=== PATIENT | female | born 1955 | race Caucasian/White ===

== ENCOUNTER 2016-10-04 23:52 | Emergency (ER) | payer BC ==
[~2016-10-04] VITALS: Ht 160 cm; Wt 95.0 kg
[~2016-10-04 23:52] MED LIST: AVN4; CLOP1TAB15 PO; FLNIN; FOSAMAX; HYZ/50125; INSDGI; LSX20; NVLGI; PRLSR20; SIMV40TA2
[2016-10-04 23:57] VITALS: Ht 160 cm; Wt 95.0 kg
[2016-10-05] MEDS ORDERED: FLUT0.15 NAE (00:18)
[2016-10-05] MEDS ORDERED: FURO-85 PO (00:19)
[2016-10-05] MEDS ORDERED: HYZ/50125 PO (00:20)
[2016-10-05] MEDS ORDERED: EZET10TA63 PO (00:22)
[2016-10-05] MEDS ORDERED: ATOR-26 PO (00:22)
[2016-10-05] MEDS ORDERED: ASPI81TA28 PO (00:23)
[2016-10-05] MEDS ORDERED: PRLSR20 PO (00:24)
[2016-10-05] MEDS ORDERED: MULT-506 PO (00:25)
[2016-10-05] MEDS ORDERED: CHOL1000 PO (00:26)
[2016-10-05] MEDS ORDERED: CINN1CAP2 PO (00:27)
[2016-10-05] MEDS ORDERED: B-COTAB18 PO (00:28)
[2016-10-05] MEDS ORDERED: INSPMPHMLG (00:29)
[2016-10-05] MEDS ORDERED: LIDOCAINE/EPINEPH/TETRACAINE 1 EA SYR EXT STA (01:40)
[2016-10-05] MEDS ORDERED: LIDO/EPINEPHRINE/SOD BICARB 20 ML VIAL INFIL ONE (03:19)
[2016-10-05] MEDS ORDERED: LIDOCAINE/EPINEPHRINE 1% 20 ML VIAL INFIL ONE (03:30)
[2016-10-05] MEDS ORDERED: MUPIROCIN 2% OINT 22 GM TUBE EXT STA (03:40)
[2016-10-05] MEDS ORDERED: AMOXICIL/CLAVU 875MG HOME PACK PO ONE (03:45)
[2016-10-05 03:55] VITALS: BP 170/82; PULSE 85; O2SAT 94
[2016-10-05] MEDS ORDERED: AMOX875T PO (03:55)
--- NOTE | 2016-10-05 04:24 | EMERGENCY ROOM VISIT NOTE ---
History First contact with patient: 01:07 Chief Complaint: BITE Stated Complaint: DOG BITE - SIGNIFICANT BLEEDING,WON'T STOP History of Present Illness The patient is a 61 year old female who presents to the Emergency Room with complaints of being bit by a dog just prior to arrival. Patient states her dog bit her on accident. Shots are up-to-date. No chance for rabies. Her tetanus is current. Patient complains of a upper lip laceration. Patient denies dental pain, facial pain, headache, neck pain or any other medical complaints. Review of Systems See HPI for pertinent positives & negatives. A total of 6 systems reviewed and were otherwise negative. Past Medical/Surgical History Diabetes Social History Smoking Status: Never Smoker Drug Use: none Current/Historical Medications Scheduled Amoxicillin & Pot Clavulanate (Augmentin 875-125 mg), 1 TAB PO BID Aspirin (Aspirin Ec), 81 MG PO DAILY Atorvastatin (Lipitor), 80 MG PO DAILY B-Complex Vitamins (Vitamin B Complex), 1 TAB PO DAILY Cholecalciferol (Vitamin D3), 5,000 UNITS PO DAILY Cinnamon (Cinnamon), 500 MG PO DAILY Clopidogrel (Plavix), 75 MG PO DAILY Ezetimibe (Zetia), 10 MG PO DAILY Hctz/Losartan (Hyzaar 12.5MG/50MG), 1 TAB PO DAILY Insulin Human Lispro (Insulin Humalog Pump ), 1 EA N/A UD Multivitamin (Multivitamin), 1 TAB PO DAILY Omeprazole (Prilosec), 20 MG PO DAILY Scheduled PRN Fluticasone Propionate (Nasal) (Flonase Allergy Relief), 2 SPRAYS MARNIE DAILY PRN for ALLERGIC REACTION Furosemide (Lasix), 20 MG PO DAILY PRN for EDEMA/WEIGHT GAIN Allergies Coded Allergies: Lisinopril (Unverified Allergy, Mild, 10/20/09) Physical Exam Vital Signs Date Time Temp Pulse Resp B/P Pulse Ox O2 Delivery O2 Flow Rate FiO2 10/05/16 03:55 85 18 170/82 94 Room Air 10/05/16 01:55 84 18 163/93 97 Room Air 10/04/16 23:57 92 18 163/91 97 Room Air Physical Exam VITALS: Vitals are noted on the nurse's note and reviewed by myself. Vital signs stable. GENERAL: Pleasant female, in no acute distress, nondiaphoretic, well-developed well-nourished. SKIN: The skin was without rashes, erythema, edema, or bruising. There is no tenting of the skin. Capillary reflex less than 2 seconds. HEAD: Normocephalic atraumatic. Face nontender to palpation EARS: External auditory canals clear, tympanic membranes pearly mayer without erythema or effusion bilaterally. EYES: Pupils equal round and reactive to light and accommodation. Conjunctivae without injection, sclerae without icterus. Extraocular movements intact. NOSE: Patent, turbinates without inflammation or discharge. No sinus tenderness. MOUTH: Mucous membranes moist. Pharynx without erythema or exudate. Uvula midline. Airway patent. Tongue does not deviate. Right upper lip with skin avulsion through the vermilion border with active bleeding. Dental exam: No loose or chipped teeth. NECK: Supple without nuchal rigidity. No lymphadenopathy. No thyromegaly. Cervical spine is nontender. No JVD. HEART: Regular rate and rhythm without murmurs gallops or rubs. LUNGS: Clear to auscultation bilaterally without wheezes, rales or rhonchi. No dullness to percussion. No retractions or accessory muscle use. MUSCULOSKELETAL: No muscle atrophy, erythema, or edema noted. NEURO: Patient was alert and oriented to person place and time. Normal sensation to light and sharp touch. No focal neurological deficits. Medical Decision & Procedures Medications Administered Medications (Trade) Dose Ordered Sig/Anshul Route Start Time Stop Time Status Last Admin Dose Admin Tetracaine/ Epinephrine/ Lidocaine (L.e.t. Gel 4%/ 1:100/0.5%) 1 ea NOW STAT EXT 10/05/16 01:40 10/05/16 01:41 DC 10/05/16 01:56 1 EA Amoxicillin/ Clavulanate Potassium (Augmentin 875MG Home Pack) 1 homepack UD ONCE PO 10/05/16 03:45 10/05/16 03:46 DC 10/05/16 04:10 1 HOMEPACK Mupirocin (Bactroban 2% Oint) 1 appln NOW STAT EXT 10/05/16 03:40 10/05/16 03:42 DC 10/05/16 04:08 1 APPLN ED Course Prior records/ancillary studies reviewed. Triage Nursing notes reviewed. The patient's history was concerning for facial injury after dog bite Differential diagnosis: Etiologies such as laceration, facial injury, dental injury, concussion, contusion, fracture, subdural hematoma, epidural hematoma, intraparenchymal hemorrhage, as well as other traumatic pathologies were entertained. Physical examination findings: As above. ER treatment provided: Augmentin, Bactroban On reassessment the patient felt better. Diagnostics interpreted by me: Consultation: A consultation was placed with the oral surgeon, Dr. Sanders as patient requested plastics. The case was discussed and diagnostics were reviewed. The patient was evaluated in the ER for further treatment. He recommends antibiotics and secondary healing intention. He will see the patient in follow- up for revision of the wound. It appears the patient has a lip laceration after being bit by a dog. Patient was evaluated by plastics and will follow-up with him for further evaluation and treatment. Patient was advised to take antibiotics as directed. She is advised to return to the immediate for fevers, swelling, drainage, worsening signs or symptoms or as needed.. By the evaluation outlined above emergent etiologies such as fracture, subdural hematoma, epidural hematoma, intraparenchymal hemorrhage, as well as others were deemed relatively unlikely. The pt informed about the findings as listed above. All questions were answered and pleased with the treatment. Return instructions were outlined and the patient was discharged in stable condition. Outpatient Prescription Management: augmetin Referral: The patient was referred back to plastic surgery for follow-up in 2 to 3 days for a recheck of the current condition. Medical Decision As below Impression Primary Impression: Open lip wound Additional Impression: Dog bite Departure Information Dispostion Home / Self-Care Condition GOOD Prescriptions Amoxicillin & Pot Clavulanate (Augmentin 875-125 mg) 1 Tab Tab 1 TAB PO BID for 9 Days, #18 TAB Prov: Yessica Perez .WALLACE 10/05/16 Referrals Kj Maciel M.D. Forms HOME CARE DOCUMENTATION FORM, IMPORTANT VISIT INFORMATION Patient Instructions [facility], ED Bite Dog Additional Instructions Bactroban ointment: Apply twice a day to the affected area. Amoxicillin Clavulanate (Augmentin) 875mg: Take one pill twice daily for 10 days for your infection. All antibiotics can cause diarrhea. If this occurs and you feel worse or it does not resolve in 1-2 days follow up with your doctor or return to the Emergency Department as this could be signs of serious underlying problems. Any medication can cause an allergic reaction, stop the pills immediately and return to the ER for rash, hives, breathing difficulties, or swelling. Acetaminophen(Tylenol) may be used for fever or pain. Use 1000mg every six hours as needed. Avoid using more than 3000mg in a 24 hour period. Rest and drink plenty of fluids. Continue current medications. Return to the ER for severe pain, persistent fevers, spreading redness, or any worsening of your condition. Follow up with plastic surgery within 2-3 days or as scheduled for a recheck of the current condition. Problem Qualifiers Primary Impression: Open lip wound Encounter type: initial encounter Open wound type: puncture wound Foreign body presence: without foreign body Qualified Codes: S01.531A - Puncture wound without foreign body of lip, initial encounter Additional Impression: Dog bite Encounter type: initial encounter Qualified Codes: W54.0XXA - Bitten by dog , initial encounter
--- NOTE | 2016-10-05 14:52 | HISTORY & PHYSICAL EXAMINATION ---
DATE OF ADMISSION: 10/04/2016 HISTORY OF PRESENT ILLNESS: The patient is a 50-year-old white female who was bit in the upper lip by her dog and sustained a large avulsion of the skin vermilion and part of the anterior orbicularis capsule for greater than 1/3 of the transverse length of the lip. PAST MEDICAL HISTORY: Otherwise noncontributory other than the fact that the patient is BRCA gene positive and this coming Friday is to undergo bilateral mastectomies and immediate reconstruction at [place], [place]. My evaluation of the lip shows a large avulsive segment. The lip cannot be wedge resected without significant distortion and creating perhaps a temporary microstomia which would interfere with intubation for her surgery on Friday. A skin graft could possibly be disrupted during intubation and delay her procedure. A switch flap, which would be the best treatment for this would also likewise create a temporary microstomia that may delay her surgery and she absolutely does not want to delay the surgery. The animation of the lip seems okay. The muscle function is for the most part intact. The wound is clean and it is open so we have elected to not close it and allow it to heal at least to some degree secondarily and do a delayed closure on it several weeks from now after she is past her breast surgery. I discussed with her on how to maintain this wound. We will have her apply mupirocin b.i.d., take Augmentin for 1 week and then to wash it normally but do not over manipulate it with peroxide or scrubbing. She is to call me for any problems. She is going to call her plastic surgeon on Friday and make sure that an open wound would not cause him to delay her surgery. I do not think that it should, but if he feels that I would I can put a full thickness skin graft on there as the simplest most convenient closure. Should it be disrupted at the time of her surgery it will matter little as our plan is to perform a cross lip flap as the more definitive closure. I explained this to the patient and she understands. She is a nonsmoker. She is on Plavix and has had a TIA in the past but these are not contraindications to a switch flap which can be performed under local. I will see her back next week. If her plastic surgeon wishes it closed we will perform a graft closure on Friday. If he does not mind that it is open either he or I will perform the appropriate closure down the road or at the time of her breast surgery.
== END 2016-10-05 04:15 | disposition home or self-care (01) ==
LOC: C.EDB 23:54 → C.EDA 10-05 04:15
DX: S01.511A Laceration without foreign body of lip, initial encounter (principal); W54.0XXA Bitten by dog, initial encounter; E11.9 Type 2 diabetes mellitus without complications; Z79.82 Long term (current) use of aspirin; Z79.4 Long term (current) use of insulin; Z79.899 Other long term (current) drug therapy; Z88.8 Allergy status to other drugs, medicaments and biological substances

== ENCOUNTER 2016-11-04 16:30 | Emergency (ER) | payer BC ==
[~2016-11-04] VITALS: Ht 160 cm; Wt 94.0 kg
[~2016-11-04 16:30] MED LIST changes: +ASPI81TA28 PO; +ATOR-26 PO; -AVN4; +B-COTAB18 PO; +CHOL1000 PO; +CINN1CAP2 PO; +EZET10TA63 PO; -FLNIN; +FLUT0.15 NAE; -FOSAMAX; +FURO-85 PO; -HYZ/50125; +HYZ/50125 PO; -INSDGI; +INSPMPHMLG; -LSX20; +MULT-506 PO; -NVLGI; -PRLSR20; +PRLSR20 PO; -SIMV40TA2
[2016-11-04 16:36] VITALS: TEMP 36.5; Ht 160 cm; Wt 94.0 kg
[2016-11-04] MEDS ORDERED: DIAZ-165 PO (17:06)
[2016-11-04] MEDS ORDERED: OXYC-609 PO (17:06)
[2016-11-04 17:21] LABS: BASO % 0.3 %; BASO ABS # 0.02 K/uL (0-0.2); COMPLETE YES; EOS % 3.4 %; HEMATOCRIT 30.1 % (37-47); IG% 0.2 %; LYMPH % 20.6 %; LYMPH ABS # 1.28 K/uL (1.2-3.4); MEAN CELL VOLUME 89.6 fL (80-100); MEAN CORPUSCULAR HEMOGLOBIN 31.5 pg (25-34); MEAN CORPUSCULAR HGB CONC 35.2 g/dl (32-36); MEAN PLATELET VOLUME 9.9 fL (7.4-10.4); MONO % 9.4 %; NEUT % 66.1 %; PLATELET COUNT 255 K/uL (130-400); RED BLOOD COUNT 3.36 M/uL (4.2-5.4)
[2016-11-04] MEDS ORDERED: ONDANSETRON INJ 2 MG/ML 2 ML VIAL IV STA (17:33)
[2016-11-04] MEDS ORDERED: MoRPHine SULFATE 10 MG/ML CARP/VIAL IV STA (17:33)
--- NOTE | 2016-11-04 17:35 | DIAGNOSTIC IMAGING REPORT ---
CHEST ONE VIEW PORTABLE CLINICAL HISTORY: swelling of right breast pain COMPARISON STUDY: No previous studies for comparison. FINDINGS: Increased density right hemithorax most likely secondary to overlapping shadows in the right breast. Lungs are considered clear. Diaphragms smooth. IMPRESSION: Increased density/size right breast. The chest itself is negative Electronically signed by: Rogelio Bowling M.D. 11/04/2016 5:33 PM Dictated Date/Time: 11/04/2016 5:33 PM
[2016-11-04 17:39] LABS: BUN/CREATININE RATIO 21.1 (10-20); CALCIUM 8.6 mg/dl (8.5-10.1); CREATININE 0.73 mg/dl (0.60-1.20); POTASSIUM 3.8 mmol/L (3.5-5.1)
--- NOTE | 2016-11-04 18:31 | DIAGNOSTIC IMAGING REPORT ---
Study. Right breast ultrasound HISTORY: Post mastectomy/reconstruction pain. Edema. FINDINGS: Right breast implant is present. Bile central criteria the implant appears intact. There is also a left breast implant. Posterior to the right breast implant is a 6 x 3 cm slightly complex soft tissue component which is not seen on the contralateral left. This potentially relates to hematoma, abscess, versus complex seroma. IMPRESSION: 1. Bilateral breast implants. 2. Moderate complex tissue posterior to the right breast implant measuring 3 x 6 cm. 3. Diagnostic considerations include hematoma, complex trauma, versus abscess. Electronically signed by: Rogelio Bowling M.D. 11/04/2016 6:29 PM Dictated Date/Time: 11/04/2016 6:25 PM
[2016-11-04 19:30] VITALS: BP 140/74; PULSE 77; O2SAT 95
--- NOTE | 2016-11-04 22:30 | EMERGENCY ROOM VISIT NOTE ---
History Report prepared by Tae: La Evans Under the Supervision of: Dr. Cristian Miner D.O. First contact with patient: 16:46 Chief Complaint: OTHER COMPLAINT Stated Complaint: S/P HEATHER MASTECTOMY 10/11, SWELLING/PAIN RT SIDE History of Present Illness The patient is a 61 year old female who presents to the Emergency Room with complaints of severe right sided breast pain and swelling starting yesterday. She denies any swelling in her upper extremities. She had a bilateral mastectomy on October 11 and implants placed. Patient denies any fevers or redness of her breast. She notes that this started suddenly about 2-3 hours prior to presentation. She did discuss this with her breast surgeon who recommended that she be evaluated in the ER. She has a history of left sided breast cancer and consequently had a bilateral mastectomy. Pt denies headache, change in vision, fevers, shortness of breath, nausea, vomiting, diarrhea, pain with urination, and melena. Source of History: patient Onset: yesterday Position: other (right sided breast) Symptom Intensity: severe Quality: other (swelling) Associated Symptoms: No SOB, No diarrhea, No fevers, No headache, No nausea , No vomiting Review of Systems See HPI for pertinent positives & negatives. A total of 10 systems reviewed and were otherwise negative. Past Medical & Surgical Medical Problems: (1) Breast cancer (2) Diabetes (3) Hypertension (4) Kidney stone Surgical Problems: (1) H/O bilateral mastectomy Family History Diabetes mellitus FH: cancer FH: heart disease FH: lung disease Social History Smoking Status: Never Smoker Alcohol Use: none Drug Use: none Occupation Status: employed Current/Historical Medications Scheduled Aspirin (Aspirin Ec), 81 MG PO DAILY Atorvastatin (Lipitor), 80 MG PO DAILY B-Complex Vitamins (Vitamin B Complex), 1 TAB PO DAILY Cholecalciferol (Vitamin D3), 5,000 UNITS PO DAILY Cinnamon (Cinnamon), 500 MG PO DAILY Clopidogrel (Plavix), 75 MG PO DAILY Ezetimibe (Zetia), 10 MG PO DAILY Hctz/Losartan (Hyzaar 12.5MG/50MG), 1 TAB PO DAILY Insulin Human Lispro (Insulin Humalog Pump ), 1 EA N/A UD Multivitamin (Multivitamin), 1 TAB PO DAILY Omeprazole (Prilosec), 20 MG PO DAILY Scheduled PRN Diazepam (Valium), 5 MG PO Q8 PRN for PRN Fluticasone Propionate (Nasal) (Flonase Allergy Relief), 2 SPRAYS MARNIE DAILY PRN for ALLERGIC REACTION Furosemide (Lasix), 20 MG PO DAILY PRN for EDEMA/WEIGHT GAIN Oxycodone HCl (Oxycodone HCl), 5 MG PO Q6 PRN for Pain Allergies Coded Allergies: Lisinopril (Unverified Allergy, Mild, 11/04/16) Physical Exam Vital Signs Date Time Temp Pulse Resp B/P Pulse Ox O2 Delivery O2 Flow Rate FiO2 11/04/16 19:30 77 20 140/74 95 11/04/16 18:19 87 18 143/58 99 Room Air 11/04/16 16:36 36.5 94 18 152/77 100 Room Air Physical Exam GENERAL: Sitting up in bed, nontoxic, no acute distress, non-toxic EYE EXAM: normal conjunctiva, PERRL and EOM's grossly intact OROPHARYNX: no exudate, no erythema, lips, buccal mucosa, and tongue normal and mucous membranes are moist NECK: supple, no nuchal rigidity, no adenopathy, non-tender CHEST: Left breast with incision which is clean, dry, and intact, no erythema. Right breast with moderate amount of swelling, no erythema, incision is intact with minimal amount of dark tissue present less than 1-2cm in length, minimal tenderness on palpation. LUNGS: Clear to auscultation. Normal chest wall mechanics HEART: no murmurs, S1 normal and S2 normal ABDOMEN: abdomen soft, non-tender, normo-active bowel sounds, no masses, no rebound or guarding. BACK: Back is symmetrical on inspection and there is no deformity, no midline tenderness, no CVA tenderness. SKIN: no rashes and no bruising UPPER EXTREMITIES: upper extremities are grossly normal and equal in size bilaterally. Radial pulses are equal bilaterally. LOWER EXTREMITIES: No pitting edema. NEURO EXAM: Normal sensorium, cranial nerves II-XII grossly intact, normal speech, no gross weakness of arms, no gross weakness of legs. Medical Decision & Procedures ER Provider Diagnostic Interpretation: Xray results per the radiologist and my interpretation. US results have been interpreted by the radiologist and reviewed by me. CHEST ONE VIEW PORTABLE CLINICAL HISTORY: swelling of right breast pain COMPARISON STUDY: No previous studies for comparison. FINDINGS: Increased density right hemithorax most likely secondary to overlapping shadows in the right breast. Lungs are considered clear. Diaphragms smooth. IMPRESSION: Increased density/size right breast. The chest itself is negative Electronically signed by: Rogelio Bowling M.D. 11/04/2016 5:33 PM Dictated Date/Time: 11/04/2016 5:33 PM Study. Right breast ultrasound HISTORY: Post mastectomy/reconstruction pain. Edema. FINDINGS: Right breast implant is present. Bile central criteria the implant appears intact. There is also a left breast implant. Posterior to the right breast implant is a 6 x 3 cm slightly complex soft tissue component which is not seen on the contralateral left. This potentially relates to hematoma, abscess, versus complex seroma. IMPRESSION: 1. Bilateral breast implants. 2. Moderate complex tissue posterior to the right breast implant measuring 3 x 6 cm. 3. Diagnostic considerations include hematoma, complex trauma, versus abscess. Electronically signed by: Rogelio Bowling M.D. 11/04/2016 6:29 PM Dictated Date/Time: 11/04/2016 6:25 PM Laboratory Results 11/04/16 17:08 Red Blood Count 3.36, Mean Corpuscular Volume 89.6, Mean Corpuscular Hemoglobin 31.5, Mean Corpuscular Hemoglobin Concent 35.2, Mean Platelet Volume 9.9, Neutrophils (%) (Auto) 66.1, Lymphocytes (%) (Auto) 20.6, Monocytes (%) (Auto) 9.4, Eosinophils (%) (Auto) 3.4, Basophils (%) (Auto) 0.3, Neutrophils # (Auto) 4.10, Lymphocytes # (Auto) 1.28, Monocytes # (Auto) 0.58, Eosinophils # (Auto) 0.21, Basophils # (Auto) 0.02 11/04/16 17:08 Test 11/04/16 17:08 White Blood Count 6.20 K/uL (4.8-10.8) Red Blood Count 3.36 M/uL (4.2-5.4) Hemoglobin 10.6 g/dL (12.0-16.0) Hematocrit 30.1 % (37-47) Mean Corpuscular Volume 89.6 fL (80-100) Mean Corpuscular Hemoglobin 31.5 pg (25-34) Mean Corpuscular Hemoglobin Concent 35.2 g/dl (32-36) Platelet Count 255 K/uL (130-400) Mean Platelet Volume 9.9 fL (7.4-10.4) Neutrophils (%) (Auto) 66.1 % Lymphocytes (%) (Auto) 20.6 % Monocytes (%) (Auto) 9.4 % Eosinophils (%) (Auto) 3.4 % Basophils (%) (Auto) 0.3 % Neutrophils # (Auto) 4.10 K/uL (1.4-6.5) Lymphocytes # (Auto) 1.28 K/uL (1.2-3.4) Monocytes # (Auto) 0.58 K/uL (0.11-0.59) Eosinophils # (Auto) 0.21 K/uL (0-0.5) Basophils # (Auto) 0.02 K/uL (0-0.2) RDW Standard Deviation 41.5 fL (36.4-46.3) RDW Coefficient of Variation 12.9 % (11.5-14.5) Immature Granulocyte % (Auto) 0.2 % Immature Granulocyte # (Auto) 0.01 K/uL (0.00-0.02) Anion Gap 12.0 mmol/L (3-11) Est Creatinine Clear Calc Drug Dose 86.0 ml/min Estimated GFR () 101.6 Estimated GFR (Non- 87.7 BUN/Creatinine Ratio 21.1 (10-20) Calcium Level 8.6 mg/dl (8.5-10.1) Laboratory results per my review. Medications Administered Medications (Trade) Dose Ordered Sig/Anshul Route Start Time Stop Time Status Last Admin Dose Admin Morphine Sulfate (MoRPHine SULFATE INJ) 6 mg NOW STAT IV 11/04/16 17:33 11/04/16 17:34 DC 11/04/16 18:18 6 MG Ondansetron HCl (Zofran Inj) 4 mg NOW STAT IV 11/04/16 17:33 11/04/16 17:34 DC 11/04/16 18:18 4 MG ED Course ED COURSE: Vital signs were reviewed and showed normal. The patients medical record was reviewed The above diagnostic studies were performed and reviewed. ED treatments and interventions as stated above. 1646: The patient was evaluated in room C12A. A complete history and physical examination was performed. 1733: Zofran Inj 4 mg IV, Morphine Sulfate 6 mg IV 1899: I updated the patient. 1906: I discussed the patient's case with Dr. Barraza, plastic surgeon with [facility]. He recommended outpatient follow up. 1922: Upon reevaluation, the patient is resting comfortably. I discussed my findings with the patient and she understands and agrees with the treatment plan. Based on the patients age, coexisting illnesses, exam and lab findings the decision to treat as an outpatient was made. The patient remained stable while under my care. The patient appeared well at the time of discharge. Medical Decision Differential diagnosis includes but is not limited to hematoma, mastitis, cellulitis, abscess, ruptured implant. Patient is a seizure 61-year-old female who presents the ER for swelling of her right breast. She had a complete bilateral resection of both breasts at the end of September for breast cancer. She notes that several hours prior to arrival she had significant amount of swelling of her right breast. She notes that it is mildly painful. No redness or fevers. This happened acutely. Resection was done at the end of September. Labs were obtained. No significant leukocytosis or anemia. BMP was unremarkable. Ultrasound shows complex fluid behind the implants. Discussed case with her plastic surgeon. They agree with having this patient follow up as an outpatient tomorrow in their office for further workup. Discussed with Pt concerning signs and symptoms to watch out for. Pt was instructed to follow up with their PCP and discussed with the patient their option to return to the ED at anytime for persistent or worsening symptoms. The appropriate anticipatory guidance and out-patient management, including indications for return to the emergency department, were explained at length to the patient and understood. Consults Time Called: 1899 Consulting Physician: Dr. Barraza, plastic surgeon with [facility] Returned Call: 1906 I discussed the patient's case with Dr. Barraza, plastic surgeon with [facility]. He recommended outpatient follow up. Impression Primary Impression: Breast pain Additional Impression: Anemia Scribe Attestation The scribe's documentation has been prepared under my direction and personally reviewed by me in its entirety. I confirm that the note above accurately reflects all work, treatment, procedures, and medical decision making performed by me. Departure Information Dispostion Home / Self-Care Referrals Ladi Benites MD (PCP) Forms HOME CARE DOCUMENTATION FORM, IMPORTANT VISIT INFORMATION, WORK / SCHOOL INSTRUCTIONS Patient Instructions [facility] Additional Instructions Please follow up with your plastic surgeon with in the next 24 hours. Any worsening of your symptoms, please return to the ED immediately. This includes any fevers greater than 100.4, shaking chills, worsening pain, redness around her breast, trouble breathing, chest pain or any other concerning signs or symptoms from your standpoint. Please continue your OxyIR as previously prescribed. Problem Qualifiers Additional Impression: Anemia Anemia type: unspecified type Qualified Codes: D64.9 - Anemia, unspecified
== END 2016-11-04 19:33 | disposition home or self-care (01) ==
LOC: C.EDB 16:32 → C.EDC 19:33
DX: N64.4 Mastodynia (principal); D64.9 Anemia, unspecified; Z85.3 Personal history of malignant neoplasm of breast; Z98.82 Breast implant status; E11.9 Type 2 diabetes mellitus without complications; I10 Essential (primary) hypertension; Z87.442 Personal history of urinary calculi; Z83.3 Family history of diabetes mellitus; Z80.9 Family history of malignant neoplasm, unspecified; Z82.49 Family history of ischemic heart disease and other diseases of the circulatory system; Z83.6 Family history of other diseases of the respiratory system; Z79.82 Long term (current) use of aspirin; Z79.02 Long term (current) use of antithrombotics/antiplatelets; Z79.899 Other long term (current) drug therapy

== ENCOUNTER 2016-11-25 12:01 | Inpatient (IN) | payer BC ==
[~2016-11-25] VITALS: Ht 160 cm; Wt 92.4 kg
[~2016-11-25 12:01] MED LIST changes: +DIAZ-165 PO; +OXYC-609 PO
[2016-11-25] MEDS ORDERED: HYDROmorphone INJ 0.5 MG/0.5 ML SYR IV STA ×2 (13:04→15:30)
[2016-11-25] MEDS ORDERED: SODIUM CHLORIDE 0.9% 1000ML 2,000 ML IV STA (13:04)
[2016-11-25] MEDS ORDERED: ONDANSETRON INJ 2 MG/ML 2 ML VIAL IV STA (13:04)
--- NOTE | 2016-11-25 14:06 | DIAGNOSTIC IMAGING REPORT ---
HEAD CT NONCONTRAST CT DOSE: 537.48 mGy.cm HISTORY: headache, breast cancer TECHNIQUE: Multiaxial CT images of the head were performed without the use of intravenous contrast. Automated exposure control was utilized for this study. Comparison: None. Findings: Small fluid levels within the bilateral maxillary sinuses and partial opacification of the ethmoid air cells. There is also small fluid level within the right sphenoid sinus. The calvarium and skull base are intact. The ventricles and sulci are within normal limits. There is no mass, hematoma, midline shift, or acute infarct. Impression: No acute intracranial abnormality. Acute paranasal sinusitis. Electronically signed by: Garrison Carter M.D. 11/25/2016 2:05 PM Dictated Date/Time: 11/25/2016 1:58 PM
[2016-11-25 14:20] LABS: BUN/CREATININE RATIO 18.7 (10-20); CALCIUM 8.2 mg/dl (8.5-10.1); CREATININE 0.63 mg/dl (0.60-1.20); POTASSIUM 3.3 mmol/L (3.5-5.1)
[2016-11-25 14:49] LABS: HEMATOCRIT 32.5 % (37-47); MEAN CORPUSCULAR HGB CONC 34.5 g/dl (32-36); MEAN PLATELET VOLUME 10.4 fL (7.4-10.4); PLATELET COUNT 208 K/uL (130-400); RED BLOOD COUNT 3.61 M/uL (4.2-5.4); WHITE BLOOD COUNT 1.48 K/uL (4.8-10.8)
[2016-11-25] MEDS ORDERED: AMOXICILLIN/CLAVULANATE TAB 875 MG TAB PO ONE (16:00)
[2016-11-25 16:38] LABS: LARGE PLATELETS 1+; TOXIC GRANULATION 1+
[2016-11-25 16:40] LABS: BASO ABS # 0.01 K/uL (0-0.2); BASOPHIL % 0.9 %; EOSINOPHIL % 0.9 %; LYMPH ABS # 0.71 K/uL (1.2-3.4); LYMPHOCYTE % 48.2 %; META ABS # 0.11 K/uL (0-0); METAMYELOCYTE % 7.3 %; NEUTROPHILS % 13.6 %
[2016-11-25 16:45] LABS: COMPLETE YES
[2016-11-25 16:58] LABS: URINE APPEARANCE CLEAR (CLEAR); URINE BILIRUBIN NEG (NEG); URINE COLOR YELLOW; URINE EPITHELIAL CELL AUTO >30 /lpf (0-5); URINE NITRITE NEG (NEG); URINE SPECIFIC GRAVITY 1.017 (1.000-1.030); UROBILINOGEN NEG (NEG); ZZUR CULT IF INDIC CLEAN CATCH NO
[2016-11-25 17:05] LABS: MANUAL MICROSCOPIC REQUIRED? NO; REVIEW REQ? NO
[2016-11-25] MEDS ORDERED: FLUTICASONE PROPIONATE NA SPR 16 GM BTL NAE PRN (19:00)
[2016-11-25] MEDS ORDERED: ZOLPIDEM TARTRATE 5 MG TAB PO PRN (19:00)
[2016-11-25] MEDS ORDERED: GLUCOSE 10 TABS/TUBE PO PRN (19:15)
[2016-11-25] MEDS ORDERED: GLUCOSE 40% GEL 15 GM TUBE PO PRN (19:15)
[2016-11-25] MEDS ORDERED: ONDANSETRON INJ 2 MG/ML 2 ML VIAL IV PRN (19:15)
[2016-11-25] MEDS ORDERED: DEXTROSE 50% 50 ML SYR IV PRN (19:15)
[2016-11-25] MEDS ORDERED: GLUCAGON FOR INJ 1 MG VIAL SQ PRN (19:15)
[2016-11-25] MEDS ORDERED: PIPERACILL/TAZOBAC IV 3.375 GM in DEXTROSE 5% 100ML IV ONE (19:30)
[2016-11-25] MEDS ORDERED: VANCOMYCIN INJ 2,300 MG in SODIUM CHLORIDE 0.9% 500ML 500 ML IV ONE (19:30)
[2016-11-25 20:38] VITALS: BP 129/72; PULSE 99; TEMP 36.9; O2SAT 96
[2016-11-25] MEDS ORDERED: PIPERACILL/TAZOBAC CONSULT ACTIVE PRN (20:45)
[2016-11-25] MEDS ORDERED: VANCOMYCIN CONSULT ACTIVE PRN (20:45)
[2016-11-25 20:48] VITALS: BMI 35.8
--- NOTE | 2016-11-25 20:50 | Pharmacy Progress Note ---
Pharmacy Antibiotic Consult Date of Service: Nov 25, 2016. Pharmacy Dosing Scope Pharmacy is consulted to initiate vancomycin/zosyn IV dosing therapy, order appropriate labs and adjust drug dose/frequency. Subjective The patient is a 61 year old female admitted on Nov 25, 2016 at 19:09 with sinusitis and neutropenia. Objective Height (Feet): 5 Height (Inches): 3.00 Weight (Kilograms): 91.600 Lab Results (24hrs): Laboratory Tests Test 11/25/16 13:37 BUN/Creatinine Ratio 18.7 Blood Urea Nitrogen 12 mg/dl Creatinine 0.63 mg/dl White Blood Count 1.48 K/uL Red Blood Count 3.61 M/uL Hemoglobin 11.2 g/dL Hematocrit 32.5 % Mean Corpuscular Volume 90.0 fL Mean Corpuscular Hemoglobin 31.0 pg Mean Corpuscular Hemoglobin Concent 34.5 g/dl Platelet Count 208 K/uL Mean Platelet Volume 10.4 fL Assessment & Plan Loading dose: vancomycin 2300 mg (25 mg/kg) IV X 1 dose then: vancomycin 1350 mg IV every 10 hours (15 mg/kg; population pharmacokinetics suggest a half-life of 8.06 hr with an elimination constant of 0.086 hr-1). Goal peak level estimate: between 35 - 40 mcg/mL. Goal trough level estimate: between 10 - 15 mcg/mL (indication = sinusitis). Trough has been ordered for: prior to 0300. Pharmacy will continue to follow and will adjust dose/frequency as necessary. Thank you
[2016-11-25] MEDS ORDERED: INSULIN HUMAN LISPRO (humaLOG) 100 UNITS/ML VIAL SC PRN (21:00)
[2016-11-25] MEDS: INSULIN HUMAN LISPRO (humaLOG) 100 UNITS/ML VIAL SC SCH (21:00)
[2016-11-25] MEDS ORDERED: INSULIN ASPART 100 UNITS/ML 3 ML PEN SC SCH (21:00)
--- NOTE | 2016-11-25 21:26 | EMERGENCY ROOM VISIT NOTE ---
History Report prepared by Tae: Lo Velasquez Under the Supervision of: Dr. Derick Rojas M.D. First contact with patient: 12:58 Chief Complaint: HEADACHE Stated Complaint: SEVERE POST, BODY PAIN-CHEMO LAST FRIDAY History of Present Illness The patient is a 61 year old female who presents to the Emergency Room with complaints of worsening generalized weakness that began 4 days ago. The patient has metaplastic breast cancer and follows up with Dr. Hernandes in [place]. The cancer is not metastatic. She has not had any imaging since her diagnosis. She had a bilateral mastectomy this past September. 6 days ago, she had her first chemotherapy infusion since her diagnosis. She started taking Neulasta 5 days ago. 4 days ago, she started to feel weak and has been feeling weaker every day. She also developed a gradual onset headache which has been progressively getting worse. 3 days ago, she had surgery for repair work on her incisions. She did not have any infection. Since then, her weakness and headache have been worsening. She also complains of facial pain and neck pain. She rates her current headache a 6/10 in severity. She has been using Hydrocodone and Tylenol with Codeine with only temporary relief. She notes that her weakness has made her feel short of breath. She has mild muscle aches. She notes that she has had a slight cough, but she attributes the cough to a scratchy throat from being intubated during surgery last week. She also has had some diarrhea. The patient states that she has been eating very little and has not been keeping up with fluids since her symptoms began. Her highest temperature in the last several days has been 99.9. The patient does not have a significant history of migraines or headaches, although she notes that she has had sinus trouble in the past. She was started on Keflex 3 days ago but has not taken any today. The patient has a history of diabetes and her sugars have been under control recently. She notes that her sugar was slightly elevated at 150 this morning right after she drank V8 juice because she did not administer any insulin. Pt denies LOC, fevers, chills, diaphoresis, visual changes, chest pain, nausea, vomiting, abdominal pain, melena, hematochezia, urinary symptoms, numbness, lymphadenopathy, rash, or other complaints. Source of History: patient Onset: 4 days ago Position: other (global) Quality: other (weakness) Timing: worsening Associated Symptoms: + SOB, + diarrhea, + headache, + neck pain Note: Other symptoms: body aches Review of Systems See HPI for pertinent positives and negatives. A total of ten systems were reviewed and were otherwise negative. Past Medical & Surgical Medical Problems: (1) Acute sinusitis (2) Breast cancer (3) Breast cancer (4) Diabetes (5) Hypertension (6) Kidney stone (7) Neutropenia Surgical Problems: (1) H/O bilateral mastectomy (2) H/O bilateral mastectomy (3) H/O breast reconstruction Family History Diabetes mellitus FH: cancer FH: heart disease FH: lung disease Social History Smoking Status: Never Smoker Alcohol Use: none Drug Use: none Occupation Status: employed Current/Historical Medications Scheduled Aspirin (Aspirin Ec), 81 MG PO DAILY Atorvastatin (Lipitor), 80 MG PO DAILY B-Complex Vitamins (Vitamin B Complex), 1 TAB PO DAILY Cholecalciferol (Vitamin D3), 5,000 UNITS PO DAILY Cinnamon (Cinnamon), 500 MG PO DAILY Clopidogrel (Plavix), 75 MG PO DAILY Ezetimibe (Zetia), 10 MG PO DAILY Hctz/Losartan (Hyzaar 12.5MG/50MG), 1 TAB PO DAILY Insulin Human Lispro (Insulin Humalog Pump ), 1 EA N/A UD Multivitamin (Multivitamin), 1 TAB PO DAILY Omeprazole (Prilosec), 20 MG PO DAILY Scheduled PRN Fluticasone Propionate (Nasal) (Flonase Allergy Relief), 2 SPRAYS MARNIE DAILY PRN for ALLERGIC REACTION Allergies Coded Allergies: Lisinopril (Unverified Allergy, Mild, 11/04/16) Physical Exam Vital Signs Date Time Temp Pulse Resp B/P Pulse Ox O2 Delivery O2 Flow Rate FiO2 11/25/16 18:58 90 18 127/55 92 Room Air 11/25/16 17:28 95 19 127/60 94 Room Air 11/25/16 16:12 92 17 141/91 96 Room Air 11/25/16 14:51 87 20 131/61 94 Room Air 11/25/16 14:26 95 11/25/16 14:22 95 16 136/81 94 Room Air 11/25/16 12:11 36.8 99 18 138/77 97 Room Air Physical Exam GENERAL: Awake, alert, tired-appearing, no distress HENT: Normocephalic, atraumatic. Oropharynx unremarkable. EYES: PERRL. EOMI. Normal conjunctiva. Sclera non-icteric. NECK: Supple. No nuchal rigidity. FROM. No JVD or bruit. RESPIRATORY: CTA CARDIAC: RRR. No murmur. BREAST: Surgical incisions are clean, dry and intact without any redness or drainage. ABDOMEN: Soft, non distended. No tenderness to palpation. No rebound or guarding. No masses. RECTAL: Deferred. MUSCULOSKELETAL: Unremarkable. No edema. No discoloration. Gross motor strength symmetric. NEURO: Cranial nerves 2-12 grossly intact. Normal sensorium. No sensory or motor deficits noted. Speech normal. SKIN: No rash or jaundice noted. LYMPH: No adenopathy. Medical Decision & Procedures ER Provider Diagnostic Interpretation: Radiology results as stated below per my review and radiologist interpretation: HEAD CT NONCONTRAST CT DOSE: 537.48 mGy.cm HISTORY: headache, breast cancer TECHNIQUE: Multiaxial CT images of the head were performed without the use of intravenous contrast. Automated exposure control was utilized for this study. Comparison: None. Findings: Small fluid levels within the bilateral maxillary sinuses and partial opacification of the ethmoid air cells. There is also small fluid level within the right sphenoid sinus. The calvarium and skull base are intact. The ventricles and sulci are within normal limits. There is no mass, hematoma, midline shift, or acute infarct. Impression: No acute intracranial abnormality. Acute paranasal sinusitis. Electronically signed by: Garrison Carter M.D. 11/25/2016 2:05 PM Dictated Date/Time: 11/25/2016 1:58 PM Laboratory Results 11/25/16 13:37 Red Blood Count 3.61, Mean Corpuscular Volume 90.0, Mean Corpuscular Hemoglobin 31.0, Mean Corpuscular Hemoglobin Concent 34.5, Mean Platelet Volume 10.4 11/25/16 13:37 Test 11/25/16 13:37 11/25/16 16:00 White Blood Count 1.48 K/uL (4.8-10.8) Red Blood Count 3.61 M/uL (4.2-5.4) Hemoglobin 11.2 g/dL (12.0-16.0) Hematocrit 32.5 % (37-47) Mean Corpuscular Volume 90.0 fL (80-100) Mean Corpuscular Hemoglobin 31.0 pg (25-34) Mean Corpuscular Hemoglobin Concent 34.5 g/dl (32-36) Platelet Count 208 K/uL (130-400) Mean Platelet Volume 10.4 fL (7.4-10.4) RDW Standard Deviation 41.1 fL (36.4-46.3) RDW Coefficient of Variation 12.5 % (11.5-14.5) Nucleated RBC Absolute Count (auto) 0.03 K/uL (0-0) Neutrophils % (Manual) 13.6 % Lymphocytes % (Manual) 48.2 % Monocytes % (Manual) 12.7 % Eosinophils % (Manual) 0.9 % Basophils % (Manual) 0.9 % Metamyelocytes % 7.3 % Myelocytes % 10.0 % Promyelocytes % 0.9 % Blast Cells % 5.5 % Nucleated Red Blood Cells % 2.1 % Neutrophils # (Manual) 0.20 K/uL (1.4-6.5) Total Absolute Neutrophils 0.20 K/uL (1.4-6.5) Lymphocytes # (Manual) 0.71 K/uL (1.2-3.4) Total Absolute Lymphocytes 0.71 K/uL (1.2-3.4) Monocytes # (Manual) 0.19 K/uL (0.11-0.59) Eosinophils # (Manual) 0.01 K/uL (0-0.5) Basophils # (Manual) 0.01 K/uL (0-0.2) Metamyelocytes # 0.11 K/uL (0-0) Myelocytes # 0.15 K/uL (0-0) Promyelocytes # 0.01 K/uL (0-0) Blast Cells # 0.08 K/uL (0-0) Blood Smear Review Toxic Granulation 1+ Large Platelets 1+ Anion Gap 9.0 mmol/L (3-11) Est Creatinine Clear Calc Drug Dose 98.2 ml/min Estimated GFR () 110.6 Estimated GFR (Non- 95.5 BUN/Creatinine Ratio 18.7 (10-20) Calcium Level 8.2 mg/dl (8.5-10.1) Total Bilirubin 1.4 mg/dl (0.2-1) Direct Bilirubin 0.2 mg/dl (0-0.2) Aspartate Amino Transf (AST/SGOT) 15 U/L (15-37) Alanine Aminotransferase (ALT/SGPT) 17 U/L (12-78) Alkaline Phosphatase 72 U/L (45-117) Total Protein 6.3 gm/dl (6.4-8.2) Albumin 3.1 gm/dl (3.4-5.0) Lipase 54 U/L (73-393) Urine Color YELLOW Urine Appearance CLEAR (CLEAR) Urine pH 8.0 (4.5-7.5) Urine Specific [place] 1.017 (1.000-1.030) Urine Protein NEG (NEG) Urine Glucose (UA) NEG (NEG) Urine Ketones NEG (NEG) Urine Occult Blood NEG (NEG) Urine Nitrite NEG (NEG) Urine Bilirubin NEG (NEG) Urine Urobilinogen NEG (NEG) Urine Leukocyte Esterase TRACE (NEG) Urine WBC (Auto) 1-5 /hpf (0-5) Urine RBC (Auto) 0-4 /hpf (0-4) Urine Hyaline Casts (Auto) 1-5 /lpf (0-5) Urine Epithelial Cells (Auto) >30 /lpf (0-5) Urine Bacteria (Auto) NEG (NEG) Laboratory results reviewed by me Medications Administered Medications (Trade) Dose Ordered Sig/Anshul Route Start Time Stop Time Status Last Admin Dose Admin Sodium Chloride (Nss 1000ml) 2,000 ml @ 999 mls/hr Q2H1M STAT IV 11/25/16 13:04 11/25/16 15:04 DC 11/25/16 13:41 999 MLS/HR Hydromorphone HCl (Dilaudid Inj) 0.5 mg NOW STAT IV 11/25/16 13:04 11/25/16 13:09 DC 11/25/16 13:41 0.5 MG Ondansetron HCl (Zofran Inj) 4 mg NOW STAT IV 11/25/16 13:04 11/25/16 13:09 DC 11/25/16 13:41 4 MG Hydromorphone HCl (Dilaudid Inj) 0.5 mg NOW STAT IV 11/25/16 15:30 11/25/16 15:31 DC 11/25/16 16:03 0.5 MG Amoxicillin/ Clavulanate Potassium (Augmentin Tab) 875 mg ONE ONCE PO 11/25/16 16:00 11/25/16 16:01 DC 11/25/16 16:05 875 MG ED Course 1302: The patient was evaluated in room A9. A complete history and physical exam was performed. 1304: Ordered Zofran Inj 4 mg IV, Dilaudid Inj 0.5 mg IV, NSS 2000 ml @ 999 mls/ hr IV. 1530: I reassessed the patient. She was feeling better but her headache is now starting to return. Ordered Dilaudid Inj 0.5 mg IV. 1600: Ordered Augmentin Tab 875 mg PO. 1616: I discussed the case with Dr. Calzada - Pathology. He said that the patient has neutropenia and blast cells on her differential but her recent chemotherapy explains his findings. 1703: I discussed the case with Dr. Hernandes, [facility]. She agreed with oral antibiotics. 1723: I reevaluated the patient. She was feeling better, but was generally weak when she went to the bathroom. She denied neck stiffness. She does still have a mild frontal headache. The patient was concerned about going home due to her weakness, difficulty getting around the house, and inclement weather. The patient will be evaluated for further management. 1745: I discussed the case with Dr. Garcia - [facility] Hospitalist. The patient will be evaluated for further management. Medical Decision Triage Nursing notes reviewed. The patient's presentation and history were concerning for patient's intermittent headache, body aches, recent chemotherapy and surgery. Etiologies such as dehydration, side effect of chemotherapy, migraine, tumor, headache, sinus thrombosis, temporal arteritis, sinusitis, CVA, ICH, SAH, infection, as well as others were entertained. the patient was evaluated . She looked tired and has not been eating or drinking well. She had chemotherapy, Neulasta, and then 2 days later underwent breast reconstruction. Blood work was obtained. She had a leukopenia and mild anemia noted on CBC. Differential revealed blast cells and significant neutropenia. The patient had mild hypokalemia. LFTs were unremarkable. Urinalysis was unremarkable. She was treated with IV fluids, 2 small doses of Dilaudid, and Zofran. She was feeling better and clinically looked well. She did not have any nuchal rigidity. The patient felt unsteady and generally weak. This seems to be consistent with side effects from her chemotherapy and recent stresses of surgery. She did have imaging done because of the headache complaints. She has sinusitis. There is no tumors or bleeding seen. I did discuss the case with her oncologist. The patient was treated with Augmentin for sinusitis. If she was feeling well enough outpatient treatment was felt to be reasonable however the patient was having a significant weakness. Her headache was much improved. I discussed further management in the hospital given the situation and the patient and daughter felt comfortable with this. She was worried about the generalized weakness and her inability to get around. Consultation was made with internal medicine and she was evaluated in the Emergency Room for further management. The chart was completed utilizing [employer] voice recognition software. Grammatical errors, random word insertions, pronoun errors, and incomplete sentences are an occasional consequence of this system due to software limitations, ambient noise, and hardware issues. Any formal questions or concerns about the content, text, or information contained within the body of this dictation should be directly addressed to the physician for clarification. Consults Time Called: 1610 Consulting Physician: Dr. Calzada - Pathology Returned Call: 1616 I discussed the case with him. He said that the patient has neutropenia and blast cells on her differential but her recent chemotherapy explains his findings. Additional Consults: Time Called: 1655 Consulted Physician: Dr. Hernandes, [facility] Returned Call: [phone] Additional Comments: I discussed the case with her. She agreed with oral antibiotics. Time Called: 1725 Consulted Physician: Dr. Garcia - [facility] Hospitalist Returned Call: [phone] Additional Comments: I discussed the case with him. The patient will be evaluated for further management. Impression Primary Impression: Neutropenia Additional Impressions: Generalized weakness Sinusitis Scribe Attestation The scribe's documentation has been prepared under my direction and personally reviewed by me in its entirety. I confirm that the note above accurately reflects all work, treatment, procedures, and medical decision making performed by me. Departure Information Dispostion Being Evaluated By Hospitalist Referrals Renay Hernandes M.D. (PCP) Eleazar Boyd D.O. Patient Instructions My [facility] Problem Qualifiers
--- NOTE | 2016-11-25 22:08 | History and Physical ---
History & Physical Date & Time of Service: Nov 25, 2016 at 21:56 Chief Complaint: Acute Sinusitis, Neutropenia Primary Care Physician: Renay Hernandes M.D. History of Present Illness Source: patient, partner The patient is a 61-year-old female who presents to the emergency department with worsening generalized weakness over the past 4-5 days. She follows with Dr. Hernandes from [facility] for treatment of metastatic breast cancer. She had a bilateral mastectomy in September. 6 days ago she had her first chemotherapy infusion, then 5 days ago started Neulasta, then 4 days ago began to feel progressively weaker, then 3 days ago had reconstructive surgery. She's had some facial and neck pain, and she has a frontal and maxillary area headache at this time. She's also had intermittent cough and some occasional shortness of breath. Chest some mild muscle aches and occasional scratchy throat she was started on Keflex 3 days ago without any significant improvement. She is a diabetic and has her own insulin pump, and reports that her sugars have been under control. Past Medical/Surgical History Medical Problems: (1) Breast cancer Status: Resolved (2) Breast cancer Status: Resolved (3) Diabetes Status: Chronic (4) Hypertension Status: Chronic (5) Kidney stone Status: Resolved Surgical Problems: (1) H/O bilateral mastectomy Status: Resolved (2) H/O bilateral mastectomy Status: Resolved (3) H/O breast reconstruction Status: Resolved Family History Diabetes mellitus FH: cancer FH: heart disease FH: lung disease Social History Smoking Status: Never Smoker Smokeless Tobacco Use: No Alcohol Use: none Drug Use: none Occupational Status: employed Multi-Drug Resistant Organisms History of MDRO: No Allergies Coded Allergies: Lisinopril (Unverified Allergy, Mild, 11/04/16) Home Medications Scheduled Aspirin (Aspirin Ec), 81 MG PO DAILY Atorvastatin (Lipitor), 80 MG PO DAILY B-Complex Vitamins (Vitamin B Complex), 1 TAB PO DAILY Cholecalciferol (Vitamin D3), 5,000 UNITS PO DAILY Cinnamon (Cinnamon), 500 MG PO DAILY Clopidogrel (Plavix), 75 MG PO DAILY Ezetimibe (Zetia), 10 MG PO DAILY Hctz/Losartan (Hyzaar 12.5MG/50MG), 1 TAB PO DAILY Insulin Human Lispro (Insulin Humalog Pump ), 1 EA N/A UD Multivitamin (Multivitamin), 1 TAB PO DAILY Omeprazole (Prilosec), 20 MG PO DAILY Scheduled PRN Fluticasone Propionate (Nasal) (Flonase Allergy Relief), 2 SPRAYS MARNIE DAILY PRN for ALLERGIC REACTION Review of Systems The patient denies chest pain, palpitations, shortness of breath, lower extremity swelling, vision change, hearing change, fevers, chills, sweats, weight change, nausea, vomiting, abdominal pain, pelvic pain, blood in urine or stool, dysuria, urinary frequency or urgency, memory loss, rash, abnormal bruising or bleeding, imbalance, focal weakness, numbness or tingling in arms or legs, back or neck pain, night sweats. The review of systems is otherwise negative other than for that already noted above, and at least 10 systems have been reviewed. Physical Exam Vital Signs Date Time Temp Pulse Resp B/P Pulse Ox O2 Delivery O2 Flow Rate FiO2 11/25/16 20:48 Room Air 11/25/16 20:38 36.9 99 18 129/72 96 Room Air 11/25/16 19:19 91 11/25/16 18:58 90 18 127/55 92 Room Air 11/25/16 17:28 95 19 127/60 94 Room Air 11/25/16 16:12 92 17 141/91 96 Room Air 11/25/16 14:51 87 20 131/61 94 Room Air 11/25/16 14:26 95 11/25/16 14:22 95 16 136/81 94 Room Air 11/25/16 12:11 36.8 99 18 138/77 97 Room Air The patient is awake, alert and oriented 3, normocephalic and atraumatic, looks very fatigued, lying in bed and in no acute distress. HEENT--PERRL, EOMI, mucous membranes and oropharynx dry. Neck--supple, no JVD or bruits, thyroid normal, trachea midline, no adenopathy. Heart--normal S1 and S2, no extra beats, no murmurs, rubs or gallops. Lungs--clear bilaterally with good air movement, no respiratory distress, no accessory muscle use. Abdomen--normal bowel sounds and soft, nontender and nondistended, no hernias or masses, no organomegaly. Extremities--no cyanosis, clubbing or edema. There are good distal pulses b/l. Dermatologic--normal skin turgor, normal color, warm and dry, no abnormal lymph nodes, no rash. Neurologic--cranial nerves II through XII grossly intact, motor and sensory examination normal. Rheumatologic--normal range of motion, nontender, muscles and joints. Psychiatric--normal affect. Diagnostics Laboratory Results Results Past 24 Hours Test 11/25/16 13:37 11/25/16 13:46 11/25/16 16:00 11/25/16 19:17 Range/Units White Blood Count 1.48 4.8-10.8 K/uL Red Blood Count 3.61 4.2-5.4 M/uL Hemoglobin 11.2 12.0-16.0 g/dL Hematocrit 32.5 37-47 % Mean Corpuscular Volume 90.0 80-100 fL Mean Corpuscular Hemoglobin 31.0 25-34 pg Mean Corpuscular Hemoglobin Concent 34.5 32-36 g/dl Platelet Count 208 130-400 K/uL Mean Platelet Volume 10.4 7.4-10.4 fL RDW Standard Deviation 41.1 36.4-46.3 fL RDW Coefficient of Variation 12.5 11.5-14.5 % Nucleated RBC Absolute Count (auto) 0.03 0-0 K/uL Neutrophils % (Manual) 13.6 % Lymphocytes % (Manual) 48.2 % Monocytes % (Manual) 12.7 % Eosinophils % (Manual) 0.9 % Basophils % (Manual) 0.9 % Metamyelocytes % 7.3 % Myelocytes % 10.0 % Promyelocytes % 0.9 % Blast Cells % 5.5 % Nucleated Red Blood Cells % 2.1 % Neutrophils # (Manual) 0.20 1.4-6.5 K/uL Total Absolute Neutrophils 0.20 1.4-6.5 K/uL Lymphocytes # (Manual) 0.71 1.2-3.4 K/uL Total Absolute Lymphocytes 0.71 1.2-3.4 K/uL Monocytes # (Manual) 0.19 0.11-0.59 K/uL Eosinophils # (Manual) 0.01 0-0.5 K/uL Basophils # (Manual) 0.01 0-0.2 K/uL Metamyelocytes # 0.11 0-0 K/uL Myelocytes # 0.15 0-0 K/uL Promyelocytes # 0.01 0-0 K/uL Blast Cells # 0.08 0-0 K/uL Blood Smear Review Toxic Granulation 1+ Large Platelets 1+ Sodium Level 142 136-145 mmol/L Potassium Level 3.3 3.5-5.1 mmol/L Chloride Level 105 98-107 mmol/L Carbon Dioxide Level 28 21-32 mmol/L Anion Gap 9.0 3-11 mmol/L Blood Urea Nitrogen 12 7-18 mg/dl Creatinine 0.63 0.60-1.20 mg/dl Est Creatinine Clear Calc Drug Dose 98.2 ml/min Estimated GFR () 110.6 Estimated GFR (Non- 95.5 BUN/Creatinine Ratio 18.7 10-20 Random Glucose 146 70-99 mg/dl Calcium Level 8.2 8.5-10.1 mg/dl Total Bilirubin 1.4 0.2-1 mg/dl Direct Bilirubin 0.2 0-0.2 mg/dl Aspartate Amino Transf (AST/SGOT) 15 15-37 U/L Alanine Aminotransferase (ALT/SGPT) 17 12-78 U/L Alkaline Phosphatase 72 45-117 U/L Total Protein 6.3 6.4-8.2 gm/dl Albumin 3.1 3.4-5.0 gm/dl Lipase 54 73-393 U/L Bedside Glucose 133 54 70-90 mg/dl Urine Color YELLOW Urine Appearance CLEAR CLEAR Urine pH 8.0 4.5-7.5 Urine Specific [place] 1.017 1.000-1.030 Urine Protein NEG NEG Urine Glucose (UA) NEG NEG Urine Ketones NEG NEG Urine Occult Blood NEG NEG Urine Nitrite NEG NEG Urine Bilirubin NEG NEG Urine Urobilinogen NEG NEG Urine Leukocyte Esterase TRACE NEG Urine WBC (Auto) 1-5 0-5 /hpf Urine RBC (Auto) 0-4 0-4 /hpf Urine Hyaline Casts (Auto) 1-5 0-5 /lpf Urine Epithelial Cells (Auto) >30 0-5 /lpf Urine Bacteria (Auto) NEG NEG Test 11/25/16 19:37 11/25/16 20:10 Range/Units Bedside Glucose 84 111 70-90 mg/dl Diagnostic Radiology Patient Name: BOOM CASTELAN Unit Number: [id number] Dictated: 11/25/161357 Transcribed: 11/25/161357 [facility] [employer] Printed Date/Time: [~ rep prt dt]/[~ rep prt tm] [~ rep ct labl] - [~ rep ct ivnm] [facility] [place] [address] Dictated: 11/25/161357 Transcribed: 11/25/161357 [facility] [employer] Printed Date/Time: [~ rep prt dt]/[~ rep prt tm] [~ rep ct labl] - [~ rep ct ivnm] HEAD CT NONCONTRAST CT DOSE: 537.48 mGy.cm HISTORY: headache, breast cancer TECHNIQUE: Multiaxial CT images of the head were performed without the use of intravenous contrast. Automated exposure control was utilized for this study. Comparison: None. Findings: Small fluid levels within the bilateral maxillary sinuses and partial opacification of the ethmoid air cells. There is also small fluid level within the right sphenoid sinus. The calvarium and skull base are intact. The ventricles and sulci are within normal limits. There is no mass, hematoma, midline shift, or acute infarct. Impression: No acute intracranial abnormality. Acute paranasal sinusitis. Electronically signed by: Garrison Carter M.D. 11/25/2016 2:05 PM Dictated Date/Time: 11/25/2016 1:58 PM The status of this report is Signed. Draft = Not yet reviewed or approved by Radiologist. Signed = Reviewed and approved by Radiologist. <AttendingPhy></AttendingPhy> <FamilyPhy>Eleazar Boyd D.O.</FamilyPhy> < PrimaryPhy>Renay Hernandes M.D.</PrimaryPhy> <UnitNumber>[id number]</UnitNumber> < VisitNumber>[id number]</VisitNumber> <PatientName>BOOM CASTELAN</ PatientName> <DateOfBirth>1955</DateOfBirth> <Location>[facility]</Location> < ServiceDate>11/25/16</ServiceDate> <MNE>ESINDI</MNE> <OrderingPhy>Derick Rojas MD</OrderingPhy> <OrderingPhyMNE>f rep ord dr rosario</OrderingPhyMNE> < DictatingPhyMNE>f rep dict dr rosario</DictatingPhyMNE> <CCListMNE>f rep ct pabloe</ CCListMNE> <AdmittingPhyMNE>f pt admit dr rosario</AdmittingPhyMNE> <AttendingPhyMNE >f pt attend dr rosario</AttendingPhyMNE> <ConsultingPhyMNE>f pt consult dr rosario</ConsultingPhyMNE> <FamilyPhyMNE>f pt fam dr rosario</FamilyPhyMNE> <OtherPhyMNE>f pt other dr rosario</OtherPhyMNE> < PrimaryPhyMNE>f pt prim care dr rosario</PrimaryPhyMNE> <ReferringPhyMNE>f pt referring dr rosario</ReferringPhyMNE> Impression Assessment and Plan Metastatic breast cancer, with neutropenia status post chemotherapy, and acute sinusitis and upper respiratory infection--the patient will be admitted to the hospital, placed on vancomycin IV and Zosyn IV, and follow clinical course. Her oncologist at [place] will need to be contacted tomorrow after repeat laboratories performed so that he is involved in her care. Diabetes mellitus with insulin pump--we will have Accu-Cheks performed, the patient will adjust her pump to control blood sugars. Continue aspirin 81 mg by mouth daily and clopidogrel 75 mg by mouth daily. Hypertension hold HCTZ 12.5 mg by mouth daily, and continue losartan 50 mg by mouth daily with hold parameters. Hypercholesterolemia--continue atorvastatin 80 mg by mouth daily and Zetia 10 mg by mouth daily. GERD--change omeprazole 20 mg by mouth daily to pantoprazole 40 mg by mouth daily. Level of Care Med/Surg Advanced Directives Existing Advance Directive: No Existing Living Will: No Existing Power of Paper Twister: No Resuscitation Status FULL RESUSCITATION VTE Prophylaxis VTE Risk Assessment Done? Y/N: Yes Risk Level: Moderate Given or contraindicated: SCD's
[2016-11-25] MEDS: ACETAMINOPHEN 325 MG TAB PO PRN (23:02)
[2016-11-25 23:23] VITALS: BP 142/80; PULSE 88; TEMP 36.8; O2SAT 96
[2016-11-26] VITALS (7 sets, daily range): BP systolic 118–144; BP diastolic 66–80; PULSE 78–90; TEMP 36.7–37.7; O2SAT 92–97; Ht 160 cm; Wt 92.4 kg
[2016-11-26] MEDS: PIPERACILL/TAZOBAC IV 3.375 GM in DEXTROSE 5% 100ML 100 ML IV SCH ×2 (01:43→01:52)
[2016-11-26] MEDS: ACETAMINOPHEN 325 MG TAB PO PRN ×2 (04:02→15:23)
[2016-11-26 05:22] LABS: MEAN CORPUSCULAR HGB CONC 34.4 g/dl (32-36); MEAN PLATELET VOLUME 9.7 fL (7.4-10.4); PLATELET COUNT 204 K/uL (130-400)
[2016-11-26 06:00] LABS: BUN/CREATININE RATIO 11.5 (10-20); CALCIUM 7.6 mg/dl (8.5-10.1); CREATININE 0.55 mg/dl (0.60-1.20); POTASSIUM 3.6 mmol/L (3.5-5.1)
[2016-11-26] MEDS: INSULIN HUMAN LISPRO (humaLOG) 100 UNITS/ML VIAL SC SCH ×4 (06:30→19:54)
[2016-11-26] MEDS ORDERED: VANCOMYCIN INJ 1,350 MG in SODIUM CHLORIDE 0.9% 250ML 250 ML IV SCH (07:00)
[2016-11-26 07:10] LABS: TOXIC GRANULATION 1+
[2016-11-26 07:45] LABS: BASO ABS # 0.04 K/uL (0-0.2); BASOPHIL % 0.9 %; COMPLETE YES; HEMATOCRIT 30.2 % (37-47); LYMPH ABS # 1.24 K/uL (1.2-3.4); LYMPHOCYTE % 29.6 %; MEAN CELL VOLUME 89.6 fL (80-100); MEAN CORPUSCULAR HEMOGLOBIN 30.9 pg (25-34); META ABS # 0.69 K/uL (0-0); METAMYELOCYTE % 16.5 %; MYELOCYTE % 12.2 %; NEUTROPHILS % 23.5 %; RED BLOOD COUNT 3.37 M/uL (4.2-5.4); WHITE BLOOD COUNT 4.18 K/uL (4.8-10.8)
[2016-11-26] MEDS: LOSARTAN POTASSIUM 50 MG TAB PO SCH (07:47)
[2016-11-26] MEDS: ATORVASTATIN 40 MG TAB PO SCH (07:47)
[2016-11-26] MEDS: CHOLECALCIFEROL 1000 INTER.UNIT TAB PO SCH (07:48)
[2016-11-26] MEDS: ASPIRIN 81 MG ECTAB PO SCH (07:48)
[2016-11-26] MEDS: MULTIVITAMIN TAB PO SCH (07:48)
[2016-11-26] MEDS: PANTOprazole SOD 40 MG TAB PO SCH (07:48)
[2016-11-26] MEDS: CLOPIDOGREL BISULFATE 75 MG TAB PO SCH (07:49)
[2016-11-26] MEDS: EZETIMIBE 10MG TAB PO SCH (07:49)
[2016-11-26] MEDS: VITAMIN B COMPLEX TAB PO SCH (07:49)
[2016-11-26] MEDS ORDERED: NON-FORMULARY MEDICATION (Cinnamon 500 MG) PO SCH (08:00)
[2016-11-26] MEDS ORDERED: LOSARTAN/HCTZ 50-12.5 EA TAB PO SCH (08:00)
[2016-11-26] MEDS ORDERED: SODIUM CHLORIDE 0.45% 1000ML 1,000 ML IV SCH (08:30)
[2016-11-26] MEDS ORDERED: NYSTATIN SUSP 500,000 U/5 ML UDC PO ONE (10:00)
[2016-11-26] MEDS: NYSTATIN SUSP 500,000 U/5 ML UDC PO SCH ×3 (11:58→19:54)
[2016-11-26] MEDS ORDERED: CEFTRIAXONE SOD INJ 1 GM in DEXTROSE 5% ADD-VANTAGE 50ML 50 ML IV SCH (12:00)
[2016-11-26] MEDS ORDERED: MAGIC MOUTHWASH PO SCH (12:45)
[2016-11-26] MEDS: DEXAMETHASONE CONC SOLN 3.75 MG, NYSTATIN SUSP 30 ML, DiphenhydrAMINE HCL SYRUP 300 MG,... PO SCH ×15 (13:00→23:38)
[2016-11-26] MEDS ORDERED: LOPERAMIDE HCL 2 MG CAP PO PRN (13:00)
--- NOTE | 2016-11-26 13:04 | Progress Note ---
Subjective Date of Service: Nov 26, 2016. (Mercedes Torres PA-C) Subjective Pt evaluation today including: conversation w/ patient, conversation w/ family , physical exam, chart review, lab review, review of studies, review of inpatient medication list Patient seen and evaluated. No acute events overnight. Patient does report some improvement in nasal congestion. However continues to have generalized weakness. Patient is 7 days out from her first chemotherapy treatment. And approximate 6 days out from starting Neulasta. Patient is neutropenic on labs. Complaining of some mild throat irritation and possible thrush. Also complaining of some pruritus of the abdomen. Patient's white count is beginning to improve. Glucose readings have been generally low and patient instructed to adjust basal rate of her insulin pump. (Mercedes Torres PA-C) Problem List Medical Problems: (1) Breast pain Status: Acute (2) Dog bite Status: Acute (3) Generalized weakness Status: Acute (4) Open lip wound Status: Acute (5) Sinusitis Status: Acute (Mercedes Torres PA-C) Review of Systems Constitutional: + fatigue, No chills, No fever ENT: + nasal symptoms, + sore throat Respiratory: + cough, No shortness of breath, No sputum Cardiac: No chest pain Breast: + problem reported (surgical incisions of bilateral breasts are well approximated, without erythema, without warmth, without purulent drainage) Abdomen: + diarrhea, + nausea, No pain, No vomiting Musculoskeletal: No calf pain, No swelling Female : No dysuria Skin: + itch, No rash (Mercedes Torres PA-C) Medications Current Inpatient Medications Medications (Trade) Dose Ordered Sig/Anshul Route Start Time Stop Time Status Last Admin Dose Admin Acetaminophen (Tylenol Tab) 650 mg Q4H PRN PO 11/25/16 19:00 12/25/16 18:59 11/26/16 04:02 650 MG Zolpidem Tartrate (Ambien Tab) 5 mg HSZ PRN PO 11/25/16 19:00 12/25/16 18:59 Aspirin (Ecotrin Tab) 81 mg DAILY PO 11/26/16 08:00 12/26/16 08:59 11/26/16 07:48 81 MG Atorvastatin Calcium (Lipitor Tab) 80 mg DAILY PO 11/26/16 08:00 12/26/16 08:59 11/26/16 07:47 80 MG Cholecalciferol (Vitamin D Tab) 5,000 inter.unit DAILY PO 11/26/16 08:00 12/26/16 08:59 11/26/16 07:48 5,000 INTER.UNIT Clopidogrel Bisulfate (plAVix TAB) 75 mg DAILY PO 11/26/16 08:00 12/26/16 08:59 11/26/16 07:49 75 MG EZETIMIBE (Zetia Tab) 10 mg DAILY PO 11/26/16 08:00 12/26/16 08:59 11/26/16 07:49 10 MG Fluticasone Propionate (Flonase Nasal [place]) 2 sprays DAILY PRN MARNIE 11/25/16 19:00 12/25/16 18:59 Insulin Human Lispro (HumaLOG INSULIN PUMP) 1 ea UD N/A 11/25/16 19:00 12/25/16 18:59 Multivitamins (Multivitamin Tab) 1 tab DAILY PO 11/26/16 08:00 12/26/16 08:59 11/26/16 07:48 1 TAB Vitamin B Complex (Vitamin B Complex) 1 tab DAILY PO 11/26/16 08:00 12/26/16 08:59 11/26/16 07:49 1 TAB Pantoprazole Sodium (Protonix Tab) 40 mg QAM PO 11/26/16 08:00 12/26/16 08:59 11/26/16 07:48 40 MG Ondansetron HCl (Zofran Inj) 4 mg Q6H PRN IV 11/25/16 19:15 12/25/16 19:14 11/26/16 04:01 4 MG Glucose (Glucose 40% Gel) UD PRN PO 11/25/16 19:15 12/25/16 19:14 Glucose (Glucose Chew Tab) 1 tabs UD PRN PO 11/25/16 19:15 12/25/16 19:14 Dextrose (Dextrose 50% 50ML Syringe) 50 ml UD PRN IV 11/25/16 19:15 12/25/16 19:14 Glucagon (Glucagon Inj) 1 mg UD PRN SQ 11/25/16 19:15 12/25/16 19:14 Insulin Human Lispro (humaLOG) SLIDING SCALE PRN PRN SC 11/25/16 21:00 12/25/16 20:59 Insulin Human Lispro (humaLOG) SLIDING SCALE If C... ACHS SC 11/25/16 21:00 12/25/16 20:59 Losartan Potassium 50 mg 50 mg QAM PO 11/26/16 08:00 12/26/16 07:59 11/26/16 07:47 50 MG Sodium Chloride (1/2 Nss 1000ml) 1,000 ml @ 100 mls/hr Q10H IV 11/26/16 08:30 11/26/16 18:29 11/26/16 08:47 100 MLS/HR Nystatin (Mycostatin Susp) 5 ml QID PO 11/26/16 12:00 12/06/16 11:59 Diphenhydramine HCl 25 mg 25 mg Q6H PRN PO 11/26/16 09:30 12/26/16 09:29 11/26/16 10:24 25 MG Ceftriaxone Sodium/Dextrose (Rocephin Inj/ Dextrose Add-[place] 50ML) 50 ml @ 100 mls/hr Q24H IV 11/26/16 12:00 12/03/16 11:59 11/26/16 11:58 100 MLS/HR (Mercedes Torres, KARENC) Objective Vital Signs Date Time Temp Pulse Resp B/P Pulse Ox O2 Delivery O2 Flow Rate FiO2 11/26/16 11:14 37.2 89 16 122/69 94 Room Air 11/26/16 08:00 Room Air 11/26/16 07:25 37.0 78 16 118/66 97 Room Air 11/26/16 04:02 36.7 82 16 144/80 97 Room Air 11/26/16 00:00 92 Room Air 11/25/16 23:23 36.8 88 20 142/80 96 Room Air 11/25/16 20:48 Room Air 11/25/16 20:38 36.9 99 18 129/72 96 Room Air 11/25/16 19:19 91 11/25/16 18:58 90 18 127/55 92 Room Air 11/25/16 17:28 95 19 127/60 94 Room Air 11/25/16 16:12 92 17 141/91 96 Room Air 11/25/16 14:51 87 20 131/61 94 Room Air 11/25/16 14:26 95 11/25/16 14:22 95 16 136/81 94 Room Air (Mercedes Torres PA-C) Physical Exam General Appearance: WD/WN, no apparent distress Eyes: sclerae normal ENT: hearing grossly normal, + pertinent finding (irritation of posterior pharynx) Neck: supple, no JVD, trachea midline Respiratory/Chest: lungs clear, normal breath sounds, no respiratory distress, no accessory muscle use Cardiovascular: regular rate, rhythm, no gallop, no murmur Abdomen: normal bowel sounds, non tender, soft Extremities: no pedal edema, no calf tenderness Neurologic/Psychiatric: alert, oriented x 3 Skin: normal color, warm/dry (Mercedes Torres PA-C) Laboratory Results Last 24 Hours Test 11/25/16 13:37 11/25/16 13:46 11/25/16 16:00 11/25/16 19:17 White Blood Count 1.48 K/uL Red Blood Count 3.61 M/uL Hemoglobin 11.2 g/dL Hematocrit 32.5 % Mean Corpuscular Volume 90.0 fL Mean Corpuscular Hemoglobin 31.0 pg Mean Corpuscular Hemoglobin Concent 34.5 g/dl Platelet Count 208 K/uL Mean Platelet Volume 10.4 fL RDW Standard Deviation 41.1 fL RDW Coefficient of Variation 12.5 % Nucleated RBC Absolute Count (auto) 0.03 K/uL Neutrophils % (Manual) 13.6 % Lymphocytes % (Manual) 48.2 % Monocytes % (Manual) 12.7 % Eosinophils % (Manual) 0.9 % Basophils % (Manual) 0.9 % Metamyelocytes % 7.3 % Myelocytes % 10.0 % Promyelocytes % 0.9 % Blast Cells % 5.5 % Nucleated Red Blood Cells % 2.1 % Neutrophils # (Manual) 0.20 K/uL Total Absolute Neutrophils 0.20 K/uL Lymphocytes # (Manual) 0.71 K/uL Total Absolute Lymphocytes 0.71 K/uL Monocytes # (Manual) 0.19 K/uL Eosinophils # (Manual) 0.01 K/uL Basophils # (Manual) 0.01 K/uL Metamyelocytes # 0.11 K/uL Myelocytes # 0.15 K/uL Promyelocytes # 0.01 K/uL Blast Cells # 0.08 K/uL Blood Smear Review Toxic Granulation 1+ Large Platelets 1+ Sodium Level 142 mmol/L Potassium Level 3.3 mmol/L Chloride Level 105 mmol/L Carbon Dioxide Level 28 mmol/L Anion Gap 9.0 mmol/L Blood Urea Nitrogen 12 mg/dl Creatinine 0.63 mg/dl Est Creatinine Clear Calc Drug Dose 98.2 ml/min Estimated GFR () 110.6 Estimated GFR (Non- 95.5 BUN/Creatinine Ratio 18.7 Random Glucose 146 mg/dl Calcium Level 8.2 mg/dl Total Bilirubin 1.4 mg/dl Direct Bilirubin 0.2 mg/dl Aspartate Amino Transf (AST/SGOT) 15 U/L Alanine Aminotransferase (ALT/SGPT) 17 U/L Alkaline Phosphatase 72 U/L Total Protein 6.3 gm/dl Albumin 3.1 gm/dl Lipase 54 U/L Bedside Glucose 133 mg/dl 54 mg/dl Urine Color YELLOW Urine Appearance CLEAR Urine pH 8.0 Urine Specific [place] 1.017 Urine Protein NEG Urine Glucose (UA) NEG Urine Ketones NEG Urine Occult Blood NEG Urine Nitrite NEG Urine Bilirubin NEG Urine Urobilinogen NEG Urine Leukocyte Esterase TRACE Urine WBC (Auto) 1-5 /hpf Urine RBC (Auto) 0-4 /hpf Urine Hyaline Casts (Auto) 1-5 /lpf Urine Epithelial Cells (Auto) >30 /lpf Urine Bacteria (Auto) NEG Test 11/25/16 19:37 11/25/16 20:10 11/26/16 05:00 11/26/16 07:14 Bedside Glucose 84 mg/dl 111 mg/dl 80 mg/dl White Blood Count 4.18 K/uL Red Blood Count 3.37 M/uL Hemoglobin 10.4 g/dL Hematocrit 30.2 % Mean Corpuscular Volume 89.6 fL Mean Corpuscular Hemoglobin 30.9 pg Mean Corpuscular Hemoglobin Concent 34.4 g/dl Platelet Count 204 K/uL Mean Platelet Volume 9.7 fL RDW Standard Deviation 40.6 fL RDW Coefficient of Variation 12.5 % Nucleated RBC Absolute Count (auto) 0.07 K/uL Neutrophils % (Manual) 23.5 % Lymphocytes % (Manual) 29.6 % Monocytes % (Manual) 13.0 % Basophils % (Manual) 0.9 % Metamyelocytes % 16.5 % Myelocytes % 12.2 % Promyelocytes % 2.6 % Blast Cells % 1.7 % Nucleated Red Blood Cells % 1.6 % Neutrophils # (Manual) 0.98 K/uL Total Absolute Neutrophils 0.98 K/uL Lymphocytes # (Manual) 1.24 K/uL Total Absolute Lymphocytes 1.24 K/uL Monocytes # (Manual) 0.54 K/uL Basophils # (Manual) 0.04 K/uL Metamyelocytes # 0.69 K/uL Myelocytes # 0.51 K/uL Promyelocytes # 0.11 K/uL Blast Cells # 0.07 K/uL Toxic Granulation 1+ Sodium Level 147 mmol/L Potassium Level 3.6 mmol/L Chloride Level 110 mmol/L Carbon Dioxide Level 31 mmol/L Anion Gap 6.0 mmol/L Blood Urea Nitrogen 6 mg/dl Creatinine 0.55 mg/dl Est Creatinine Clear Calc Drug Dose 113.0 ml/min Estimated GFR () 115.7 Estimated GFR (Non- 99.8 BUN/Creatinine Ratio 11.5 Random Glucose 62 mg/dl Calcium Level 7.6 mg/dl Magnesium Level 2.0 mg/dl Test 11/26/16 11:42 Bedside Glucose 81 mg/dl (Mercedes Torres, PAMonicoC) Assessment and Plan Acute Sinusitis: - DC Zosyn and Vancomycin and start Ceftriaxone 1 g daily patient has received multiple antibiotics Diarrhea: - Patient has received multiple antibiotics with recent surgeries - Currently is reporting diarrhea and C. difficile toxin obtained and is negative - Imodium 2 mg PRN with diarrhea - Will defer probiotics at this time given neutropenia Oral Candidiasis and Ulcer: - Nystatin swish and swallow and Magic mouthwash Breast CA with Neutropenia without Fever: - Neutropenic precautions - S/P first dose chemotherapy x 7 days and recently started Neulasta Diabetes Mellitus: - Patient with multiple hypoglycemic episodes - patient with limited oral intake - Continue insulin pump - instructed to decrease basal rate to 2 units/hr from 8AM-12AM - BSG's at before meals and at bedtime HTN: - Hold HCTZ and continue losartan 50 mg daily HLD: - Atorvastatin 80 mg daily and Zetia 10 mg daily GERD: - Protonix 40 mg daily as omeprazole interchange DVT Prophylaxis: - ARELIS/SCDs with ASA and Plavix - Will withhold chemical prophylaxis secondary to recent bilateral mastectomy and surgical repair Code Status: FULL RESUSCITATION Disposition: - Plan to return home in 1-2 days Continued [facility] stay due to: multiple IV medications needed Discharge planning: home (Mercedes Torres, PA-C) Attending Attestation: Pt seen/examined, chart reviewed, care plan d/w PA Mercedes Torres. I agree w/ the lei components of her documentation. Pt feeling better today. Not as tired. Denies sinus pain. Still w/ hoarse voice and mild throat pain. Worst issue is diarrhea. VSS, afebrile gen - obese, NAD mouth - MMM, mucositis left posterior palate neck - no JVD heart - RRR, s1, s2 chest - chaperoned by my PA - b/l breast incisions clean, sutures intact abd - soft, NT, ND, BS+ ext - no edema labs - WBC 4.1 ANC 980 Na 147 A/P: 1. acute sinusitis - even despite the neutropenia would de-escalate her abx to rocephin 1 gm daily. Augmentin PO at d/c would be appropriate. 2. neutropenia 2nd to recent chemo for breast ca - improved today. CBC in am. Neutropenic precautions. 3. T2DM, on pump, with frequent hypoglycemia - 2nd to anorexia, stress/illness , etc. Decrease basal rate from 8am to midnight to 2 units/hr. If hypoglycemia persists then cut even further. 4. breast ca, s/p b/l mastectomies at [facility] with breast reconstruction, s/p chemo and neulasta improving April KIM MD (Matthew Kim MD)
[2016-11-26] MEDS: LOPERAMIDE HCL 2 MG CAP PO PRN ×2 (14:51→19:07)
[2016-11-27 00:45] VITALS: O2SAT 92
[2016-11-27] MEDS ORDERED: VANCOMYCIN TROUGH SCH (02:30)
[2016-11-27 03:35] VITALS: BP 128/70; PULSE 95; TEMP 36.9; O2SAT 91
[2016-11-27] MEDS: DEXAMETHASONE CONC SOLN 3.75 MG, NYSTATIN SUSP 30 ML, DiphenhydrAMINE HCL SYRUP 300 MG,... PO SCH ×5 (05:43)
[2016-11-27 06:08] LABS: BUN/CREATININE RATIO 6.8 (10-20); CALCIUM 8.1 mg/dl (8.5-10.1); CREATININE 0.77 mg/dl (0.60-1.20); MAGNESIUM 2.2 mg/dl (1.8-2.4); POTASSIUM 3.7 mmol/L (3.5-5.1)
[2016-11-27 06:52] LABS: HEMATOCRIT 32.6 % (37-47); MEAN CELL VOLUME 90.6 fL (80-100); MEAN CORPUSCULAR HEMOGLOBIN 31.1 pg (25-34); MEAN CORPUSCULAR HGB CONC 34.4 g/dl (32-36); PLATELET COUNT 290 K/uL (130-400); WHITE BLOOD COUNT 15.01 K/uL (4.8-10.8)
[2016-11-27 07:18] VITALS: BP 134/71; PULSE 89; TEMP 36.9; O2SAT 98
[2016-11-27 07:56] LABS: DOHLE BODIES 1+; LYMPH ABS # 1.86 K/uL (1.2-3.4); LYMPHOCYTE % 12.4 %; META ABS # 1.73 K/uL (0-0); METAMYELOCYTE % 11.5 %; MYELOCYTE % 6.2 %; NEUTROPHILS % 60.2 %; POLYCHROMASIA 1+; TOXIC GRANULATION 3+
[2016-11-27 08:30] VITALS: O2SAT 98
[2016-11-27] MEDS: ATORVASTATIN 40 MG TAB PO SCH (08:36)
[2016-11-27] MEDS: ASPIRIN 81 MG ECTAB PO SCH (08:36)
[2016-11-27] MEDS: CLOPIDOGREL BISULFATE 75 MG TAB PO SCH (08:36)
[2016-11-27] MEDS: CHOLECALCIFEROL 1000 INTER.UNIT TAB PO SCH (08:37)
[2016-11-27] MEDS: EZETIMIBE 10MG TAB PO SCH (08:37)
[2016-11-27] MEDS: VITAMIN B COMPLEX TAB PO SCH (08:37)
[2016-11-27] MEDS: INSULIN HUMAN LISPRO (humaLOG) 100 UNITS/ML VIAL SC SCH (08:38)
[2016-11-27] MEDS: MULTIVITAMIN TAB PO SCH (08:38)
[2016-11-27] MEDS: NYSTATIN SUSP 500,000 U/5 ML UDC PO SCH (08:38)
[2016-11-27] MEDS: LOSARTAN POTASSIUM 50 MG TAB PO SCH (08:38)
[2016-11-27] MEDS: PANTOprazole SOD 40 MG TAB PO SCH (08:38)
[2016-11-27] MEDS ORDERED: AMOXICILLIN/CLAVULANATE TAB 875 MG TAB PO SCH (09:00)
[2016-11-27] MEDS ORDERED: NYSS5 PO (09:36)
[2016-11-27] MEDS ORDERED: AMOX1TAB43 PO (09:36)
[2016-11-27] MEDS ORDERED: MBXC PO (09:36)
[2016-11-27] MEDS ORDERED: IMD2X PO (09:36)
[2016-11-27] MEDS ORDERED: FLUC150T PO ×2 (09:36→09:54)
--- NOTE | 2016-11-27 09:49 | Discharge Instructions ---
Discharge Instructions Date of Service Nov 27, 2016. (Mercedes Torres PA-C) Admission Reason for Admission: Acute Sinusitis, Neutropenia (Mercedes Torres PA-C) Discharge Discharge Diagnosis / Problem: Acute Sinusitis and Neutropenia (Mercedes Torres PA-C) Discharge Goals Goal(s): Decrease discomfort, Improve function, Increase independence (Mercedes Torres PA-C) Activity Recommendations Activity Limitations: resume your previous activity . (Mercedes Torres PA-C) Instructions / Follow-Up Instructions / Follow-Up Acute Sinusitis: - You will be provided with a prescription for Augmentin: Take 1 tablet twice a day 5 days -- Please complete full dose of antibiotic even if symptoms are completely resolved - You may continue your Flonase and utilize saline nasal spray which can be obtained [id number] Diarrhea: - Due to frequent antibiotics you have developed some diarrhea -- We have tested your stool and you are negative for Clostridium difficile - You may use Imodium every 3 hours as needed. You may take this dose after your loose stool. - If you diarrhea does not seem to improve over the next few days please contact your family doctor. Oral Candidiasis and Ulcer with Vaginal Yeast Infection: -You will be provided with a prescription for Magic mouthwash to use as needed for mouth sores - You'll also be provided prescription for nystatin swish and spit for oral yeast infection - A prescription will be provided for Diflucan 150 mg to take 1 dose for vaginal yeast infection -- You will be given an additional pill that you can use if symptoms do not resolve. Breast CA with Neutropenia without Fever: -Your blood work shows improvement in your white blood cell count and neutrophils - Please be cautious if those around you are sick as you may be more susceptible to infection due to chemotherapy. - Further chemotherapy can be continued at her oncologist discretion. Diabetes Mellitus: - Continue using her insulin pump as previously programmed. - Please make adjustments according to oral intake and blood sugar readings. Home Medications: - Continue her home medications as previously prescribed. We did not make dosage adjustments. Follow-Up: - Please follow-up with the family doctor in 7-10 days. - Please keep all appointments previously established with your oncologist. (Mercedes Torres PA-C) Current Hospital Diet Patient's current hospital diet: Regular Diet (Mercedes Torres PA-C) Discharge Diet Recommended Diet: Diabetes Type 1 Diet (Mercedes Torres PA-C) Pending Studies Studies pending at discharge: no (Mercedes Torres PA-C) Medical Emergencies . Who to Call and When: Medical Emergencies: If at any time you feel your situation is an emergency, please call 911 immediately. . (Mercedes Torres PA-C) Non-Emergent Contact Non-Emergency issues call your: Primary Care Provider Call Non-Emergent contact if: you have a fever, you have any medication questions . (Mercedes Torres PA-C) . "Provider Documentation" section prepared by Mercedes Torres. (Mercedes Torres PA-C) Attending Attestation: Pt seen/examined and patient care plan d/w YOVANI Torres on day of discharge. I agree with her discharge instructions as outlined. Matthew Eugene MD (Matthew Eugene MD) VTE Core Measure Inpt VTE Proph given/why not?: SCD's (Mercedes Torres PA-C)
[2016-11-27 10:19] VITALS: BP 134/71; PULSE 89; TEMP 36.9; O2SAT 98
--- NOTE | 2016-11-27 14:38 | Discharge Summary ---
Discharge Summary Date of Service Nov 27, 2016. (Mercedes Torres PA-C) Discharge Summary Admission Date: Nov 25, 2016 at 19:09 Discharge Date: Nov 27, 2016 Discharge Disposition: Home Principal Diagnosis: Acute Sinusitis and Neutropenia Procedures: 1. HEAD CT NONCONTRAST CT DOSE: 537.48 mGy.cm HISTORY: headache, breast cancer TECHNIQUE: Multiaxial CT images of the head were performed without the use of intravenous contrast. Automated exposure control was utilized for this study. Comparison: None. Findings: Small fluid levels within the bilateral maxillary sinuses and partial opacification of the ethmoid air cells. There is also small fluid level within the right sphenoid sinus. The calvarium and skull base are intact. The ventricles and sulci are within normal limits. There is no mass, hematoma, midline shift, or acute infarct. Impression: No acute intracranial abnormality. Acute paranasal sinusitis. (Mercedes Torres PA-C) Problems/Secondary Diagnoses: T2DM on insulin pump hypoglycemia - resolved HTN thrush/mucositis breast cancer s/p bilateral mastectomies due to BRCA gene carrier obesity with BMI 36 antibiotic-associated diarrhea - resolved; c. diff negative hyperlipidemia (Matthew Eugene MD) Medication Reconciliation New Medications: Fluconazole (Diflucan) 150 Mg Tab 150 MG PO DAILY, #1 TAB 1 Refill Take one tablet today (11/27). Will give one refill to use for reoccurrence. Magic Swizzle (Magic Swizzle - SUCRALFA/ALUM/MAG/DIPHEN/LIDO) 240 Ml Susp 3-4 TSP PO Q6H PRN for Mouth Sore for 30 Days, #240 ML 100ml Sucralfate 50ml Maalox 50ml Diphenhydramine 40ml 2% Aq. Lidocaine Swish and Spit Amoxicillin & Pot Clavulanate (Amoxicillin/Clavulanate P) 1 Tab Tab 875 MG PO BIDM for 5 Days, TAB Start tonight (11/27) Loperamide Hcl (Imodium) 2 Mg Cap 2 MG PO Q3H PRN for Diarrhea for 10 Days, #80 CAP Nystatin (Nystatin) 5 Ml Susp 5 ML PO QID PRN for Thrush for 15 Days Swish and Spit Continued Medications: Aspirin (Aspirin Ec) 81 Mg Tab 81 MG PO DAILY Atorvastatin (Lipitor) 80 Mg Tab 80 MG PO DAILY, TAB B-Complex Vitamins (Vitamin B Complex) 1 Tab Tab 1 TAB PO DAILY Cholecalciferol (Vitamin D3) 1,000 Unit Tab 5000 UNITS PO DAILY Cinnamon (Cinnamon) 500 Mg Cap 500 MG PO DAILY Clopidogrel (Plavix) 75 Mg Tab 75 MG PO DAILY Ezetimibe (Zetia) 10 Mg Tab 10 MG PO DAILY, TAB Fluticasone Propionate (Nasal) (Flonase Allergy Relief) 50 Mcg/Act Spr 2 SPRAYS MARNIE DAILY PRN for ALLERGIC REACTION Hctz/Losartan (Hyzaar 12.5MG/50MG) Tab 1 TAB PO DAILY Insulin Human Lispro (Insulin Humalog Pump ) Pump 1 EA N/A UD, EA Multivitamin (Multivitamin) Tab 1 TAB PO DAILY, TAB Omeprazole (Prilosec) 20 Mg Capcr 20 MG PO DAILY, CAP Discharge Exam Review of Systems: Constitutional: No chills, No fever Eyes: No worsening of vision ENT: + nasal symptoms, + sore throat (improving-mouth ulcers/thrush), No trouble swallowing Respiratory: + cough (improving), No shortness of breath Cardiovascular: No chest pain Abdomen: + diarrhea, No constipation, No nausea, No pain, No vomiting Musculoskeletal: No calf pain, No swelling Genitourinary - Female: + vaginal itching, No dysuria Neurologic: No numbness/tingling Integumentary: No rash Physical Exam: General Appearance: WD/WN, no apparent distress Eyes: sclerae normal ENT: hearing grossly normal, + pertinent finding (small sore in posterior pharynx without evidence of thrush) Neck: supple, no adenopathy, no JVD, trachea midline Respiratory/Chest: lungs clear, normal breath sounds, no respiratory distress, no accessory muscle use Cardiovascular: regular rate, rhythm, no gallop, no murmur Abdomen / GI: normal bowel sounds, non tender, soft Extremities: no calf tenderness, no pedal edema Neurologic/Psychiatric: alert, oriented x 3 Skin: normal color, warm/dry, + pertinent finding (bilateral surgical incisions of breast well-approximated and without evidence of erythema, edema, or purulent discharge) (Mercedes Torres, KARENC) Hospital Course ADMISSION: The patient is a 61-year-old female who presents to the emergency department with worsening generalized weakness over the past 4-5 days. She follows with Dr. Hernandes from [facility] for treatment of breast cancer. She had a bilateral mastectomy in September. 6 days ago she had her first chemotherapy infusion, then 5 days ago started Neulasta, then 4 days ago began to feel progressively weaker, then 3 days ago had reconstructive surgery. She's had some facial and neck pain, and she has a frontal and maxillary area headache at this time. She's also had intermittent cough and some occasional shortness of breath. Chest some mild muscle aches and occasional scratchy throat she was started on Keflex 3 days ago without any significant improvement. She is a diabetic and has her own insulin pump, and reports that her sugars have been under control. HOSPITAL COURSE: Ms. Melgar was admitted for acute sinusitis in the setting of being neutropenic. Patient with recent first dose of chemotherapy and initiation of Neulasta. Anticipated ryder during admission. Patient was placed on neutropenic precautions and remained afebrile during admission. Prior to discharge her white blood cells increased to 15 and her absolute neutrophils improved to 9.04. In the emergency department she was started on Augmentin however due to hospital admission she was converted to vancomycin and Zosyn. Even in the setting of her neutropenia antibiotics were de-escalated to ceftriaxone IV as patient did report some nausea and avoided po conversion. Sinusitis symptoms markedly improved and was converted back to Augmentin for discharge. She was provided a prescription for Augmentin 875 mg/125 mg BID 5 days to complete a 7 day course of antibiotics. Upon presentation patient reporting diarrhea and multiple antibiotic use prior to admission. C. difficile toxin was obtained and negative. Also presence of oral candidiasis with small posterior pharynx ulceration which was treated with nystatin suspension and Magic mouthwash which produced improvement. She also developed vaginal pruritus with suspicion for a possible vulvovaginal candidiasis. She was provided a prescription for Diflucan 150 mg 1 dose with 1 refill if needed. Due to acute illness patient with limited appetite. During admission, she had multiple hypoglycemic episodes. Patient with good control of her insulin pump and was instructed to reduce her basal rate due to lack of appetite. Upon discharge today, she reports improvement in her appetite and was instructed to continue to monitor her glucose and adjust her pump accordingly. All home medications were resumed as previously prescribed. Patient with marked improvement in acute symptoms, is afebrile, marked improvement in neutrophils, and is optimal for discharge home. She was recommended to follow-up with her PCP in 7-10 days and her oncologist as previously scheduled. Total Time Spent: Greater than 30 minutes This includes examination of the patient, discharge planning, medication reconciliation, and communication with other providers. (Mercedes Torres, WALLACE) Attending Attestation: Pt seen/examined, chart reviewed, and discharge care plan d/w YOVANI Torres. I agree with the lei components of her discharge summary. Pleasant 61yo female with breast cancer who recently underwent b/l mastectomies as well as breast reconstructive surgery at [facility]. Following those surgeries she received her first round of chemotherapy as well as neulasta. She presented to our hospital with feeling poorly, hoarse voice, nasal congestion, and anorexia. No fever. Found to have maxillary sinusitis on CT head. She was treated for her maxillary sinusitis with antibiotics. She had mild thrush/mucositis while here. Leukopenia and neutropenia resolved prior to discharge. Her hospital course was complicated by hypoglycemia in the setting of T2DM on insulin pump. Her pump basal rates were adjusted accordingly. Discharge exam - gen - NAD mouth - MMM, mucositis resolving voice - hoarseness nearly resolved heart - RRR, s1, s2 chest - b/l breast incisions clean, sutures intact lungs - CTA b/l abd - soft, NT, ND, BS+ ext - no edema Matthew Eugene MD Total Time Spent: Greater than 30 minutes (Matthew Eugene MD) Discharge Instructions Please refer to the electronic Patient Visit Report (Discharge Instructions) for additional information. (Mercedes Torres, KARENC) Additional Copies To Renay Hernandes M.D.; Eleazar Boyd D.O.
[2016-11-27 14:45] LABS: COMPLETE YES
== END 2016-11-27 10:45 | disposition home or self-care (01) | DRG 153 ==
LOC: ENRESERVTM → ENRESERVDT → C.EDB 12:05 → UNDOADMIN 19:09 → C.4E 19:09
PROVIDERS: ADMIT Hospitalist; ATTEND Internal Medicine
DX: J01.90 Acute sinusitis, unspecified (principal); B37.0 Candidal stomatitis; Z90.13 Acquired absence of bilateral breasts and nipples; Z85.3 Personal history of malignant neoplasm of breast; I10 Essential (primary) hypertension; Z83.3 Family history of diabetes mellitus; Z80.9 Family history of malignant neoplasm, unspecified; Z83.6 Family history of other diseases of the respiratory system; Z82.49 Family history of ischemic heart disease and other diseases of the circulatory system; Z79.4 Long term (current) use of insulin; Z79.82 Long term (current) use of aspirin; Z79.899 Other long term (current) drug therapy; E78.00 Pure hypercholesterolemia, unspecified; K21.9 Gastro-esophageal reflux disease without esophagitis; R19.7 Diarrhea, unspecified; D70.9 Neutropenia, unspecified; E11.649 Type 2 diabetes mellitus with hypoglycemia without coma; E78.5 Hyperlipidemia, unspecified; Z96.41 Presence of insulin pump (external) (internal); Z88.8 Allergy status to other drugs, medicaments and biological substances; Z87.442 Personal history of urinary calculi; Z79.02 Long term (current) use of antithrombotics/antiplatelets; R63.0 Anorexia; Z68.36 Body mass index [BMI] 36.0-36.9, adult

== ENCOUNTER 2017-10-14 12:19 | Emergency (ER) | payer BC ==
[~2017-10-14] VITALS: Ht 160 cm; Wt 86.0 kg
[~2017-10-14 12:19] MED LIST changes: +AMOX1TAB43 PO; -DIAZ-165 PO; +FLUC150T PO; -FURO-85 PO; +IMD2X PO; +NYSS5 PO; -OXYC-609 PO
[2017-10-14 12:43] VITALS: TEMP 37; Ht 160 cm; Wt 86.0 kg
[2017-10-14] MEDS ORDERED: PENI-82 PO (13:16)
[2017-10-14] MEDS ORDERED: SODIUM CHLORIDE 0.9% 1000ML 1,000 ML IV STA (13:19)
--- NOTE | 2017-10-14 13:35 | EMERGENCY ROOM VISIT NOTE ---
History First contact with patient: 12:56 Chief Complaint: DENTAL PAIN Stated Complaint: TOOTH/JAW SWELLING PAIN Nursing Triage Summary: pt to the ED with c/o right lower dental pain and swelling was seen at dentist and given ABX and they drained jono was given 2 wks abx, completed that and is on another ABX History of Present Illness The patient is a 62 year old female who presents to the Emergency Room with complaints of right lower jaw/dental pain. The patient has been experiencing an abscess and infection in the right lower tooth which began approximately 3 weeks ago. At that time, an abscess was drained, but she states the dentist had to drill through the tooth in order to get to the abscess. After drainage, the patient was placed on 2 weeks of Pen-Vee K, when she noted that the infection seemed to improve. Yesterday, she was seen by the dentist to have a root canal completed, addressing the infection. At that time, she noted increased swelling, redness, and pain in the area of the affected tooth. She was advised by the dentist that she would not have the procedure performed on the tooth due to the return of the infection. She was restarted on Pen-Vee K, which she has been taking since yesterday. Earlier today, the patient states she was shaking, and has felt feverish, however has not had a documented objective fever. She did contact the dentist today, but was unable to get ahold of him, as he does not work on Tuesdays. She states she did text him, but has not heard back. The patient is a cancer survivor, and had her last chemotherapy treatment completed approximately 8 months ago. She also is a type I diabetic. The patient states currently, she feels that the swelling may be a little bit better now than it was previously. She feels that the pain is the same as it has been overnight. She was given a prescription of Tylenol with Codeine, which she is not taking, but she has been taking ibuprofen for to help with the swelling. While speaking with the patient, she then begins complaining of some intermittent chest discomfort and difficulty breathing which she has associated with the infection. She has not had active chest pain while here in the ED, and states the pain and dyspnea are not always related. She has been sweating, and feels that her heart is racing. She is having difficulty tolerating food and fluids, and states she feels dehydrated. Review of Systems A complete 10 point review of systems was reviewed with the patient with pertinent positives and negatives as per history of present illness. All else were negative. Past Medical/Surgical History Medical Problems: (1) Acute sinusitis (2) Breast cancer (3) Breast cancer (4) Diabetes (5) Hypertension (6) Kidney stone (7) Neutropenia Surgical Problems: (1) H/O bilateral mastectomy (2) H/O bilateral mastectomy (3) H/O breast reconstruction Family History Diabetes mellitus FH: cancer FH: heart disease FH: lung disease Social History Smoking Status: Never Smoker Alcohol Use: none Drug Use: none Occupation Status: employed Current/Historical Medications Scheduled Amoxicillin & Pot Clavulanate (Augmentin 875-125 mg), 1 TAB PO BID Aspirin (Aspirin Ec), 81 MG PO DAILY Atorvastatin (Lipitor), 80 MG PO DAILY B-Complex Vitamins (Vitamin B Complex), 1 TAB PO DAILY Cholecalciferol (Vitamin D3), 5,000 UNITS PO DAILY Cinnamon (Cinnamon), 500 MG PO DAILY Clopidogrel (Plavix), 75 MG PO DAILY Ezetimibe (Zetia), 10 MG PO DAILY Hctz/Losartan (Hyzaar 12.5MG/50MG), 1 TAB PO DAILY Insulin Human Lispro (Insulin Humalog Pump ), 1 EA N/A UD Multivitamin (Multivitamin), 1 TAB PO DAILY Omeprazole (Prilosec), 20 MG PO DAILY Penicillin V Potassium (Veetids), 500 MG PO QID Scheduled PRN Fluticasone Propionate (Nasal) (Flonase Allergy Relief), 2 SPRAYS MARNIE DAILY PRN for ALLERGIC REACTION Physical Exam Vital Signs Date Time Temp Pulse Resp B/P (MAP) Pulse Ox O2 Delivery O2 Flow Rate FiO2 10/14/17 18:32 86 20 159/72 98 Room Air 10/14/17 16:06 89 137/65 10/14/17 14:17 87 16 177/76 10/14/17 13:55 88 10/14/17 13:49 98 Room Air 10/14/17 12:43 37.0 97 18 140/78 99 Room Air Physical Exam Vitals are noted on the nurse's note and reviewed by myself. Vital signs stable. Temperature 37.0C orally. GENERAL: This is a 62yo obese white female, in no acute distress, nondiaphoretic , well-developed well-nourished. SKIN: The skin was without rashes, erythema, edema, or bruising. There is no tenting of the skin. Capillary reflex less than 2 seconds. HEAD: Normocephalic atraumatic. EARS: External auditory canals clear, tympanic membranes pearly mayer without erythema or effusion bilaterally. EYES: Pupils equal round and reactive to light and accommodation. Conjunctivae without injection, sclerae without icterus. Extraocular movements intact. NOSE: Patent, turbinates without inflammation or discharge. No sinus tenderness. MOUTH: The #29 tooth is very carious and the gum is swollen and tender around it, without any discharge or obvious signs of an abscess. The remainder of the pharynx and tonsils are without erythema, edema, or exudate. The airway is patent. There is no facial swelling, cervical or submandibular lymphadenopathy. The patient appears uncomfortable and in pain. The patient has overall poor dental hygiene. NECK: Supple without nuchal rigidity. Mild lymphadenopathy of the right anterior cervical chain. No thyromegaly. Cervical spine is nontender. No JVD. HEART: Regular rate and rhythm without murmurs gallops or rubs. LUNGS: Clear to auscultation bilaterally without wheezes, rales or rhonchi. No dullness to percussion. No retractions or accessory muscle use. MUSCULOSKELETAL: No muscle atrophy, erythema, or edema noted. Full range of motion without joint tenderness in all extremities. No tenderness to palpation. Normal gait. Strength 5/5 throughout. NEURO: Patient was alert and oriented to person place and time. Normal sensation to light and sharp touch. Deep tendon reflexes 2+ throughout. No focal neurological deficits. Medical Decision & Procedures ER Provider Diagnostic Interpretation: FACIAL-MAXILLOFACIAL WITH CLINICAL HISTORY: Dental abscess. COMPARISON STUDY: Head CT November 25, 2016. TECHNIQUE: A maxillofacial CT was performed following intravenous injection of 116 cc of Optiray 320 IV. Sagittal and coronal reconstructed reviewed as well as maximal intensity projections on an independent 3-D workstation. FINDINGS: Visualized portions of the intracranial contents are unremarkable. There is moderate inflammation centered on the right hemimandible extending from the lower face and upper neck. There is no mass effect upon the airway. This is likely due to to a cavity of the right second molar, tooth #20. There is a small periapical lucency associated with this tooth as well. There is a suspected tiny associated rim-enhancing fluid collection that measures 1.3 x 0.2 cm which overlies the right body of the mandible. No additional fluid collections are present. IMPRESSION: Moderate right inferior facial/upper neck infiltration consistent with an infectious process which is odontogenic in etiology. Findings are likely due to a cavity with tiny periapical lucency of the right second mandibular premolar. Cellulitis and phlegmon with a tiny associated abscess that measures 1.3 x 0.2 cm, overlying the body of the right hemimandible. Electronically signed by: Shaw Ramirez M.D. 10/14/2017 3:35 PM Dictated Date/Time: 10/14/2017 3:24 PM CHEST 2 VIEWS ROUTINE HISTORY: Atypical chest pain COMPARISON: Chest 11/04/2016. FINDINGS: The lungs are clear. Cardiac silhouette is normal in size. No pleural effusions. No pneumothorax. IMPRESSION: No acute process. Electronically signed by: Garrison Carter M.D. 10/14/2017 2:50 PM Dictated Date/Time: 10/14/2017 2:48 PM Laboratory Results 10/14/17 13:32 Red Blood Count 4.59, Mean Corpuscular Volume 91.1, Mean Corpuscular Hemoglobin 32.0, Mean Corpuscular Hemoglobin Concent 35.2, Mean Platelet Volume 10.1, Neutrophils (%) (Auto) 82.7, Lymphocytes (%) (Auto) 7.2, Monocytes (%) (Auto) 8.7, Eosinophils (%) (Auto) 0.6, Basophils (%) (Auto) 0.4, Neutrophils # (Auto) 4.49, Lymphocytes # (Auto) 0.39, Monocytes # (Auto) 0.47, Eosinophils # (Auto) 0.03, Basophils # (Auto) 0.02 10/14/17 13:32 Test 10/14/17 13:19 10/14/17 13:32 10/14/17 14:45 10/14/17 15:50 Creatine Kinase MB Ratio (0-3.0) White Blood Count 5.42 K/uL (4.8-10.8) Red Blood Count 4.59 M/uL (4.2-5.4) Hemoglobin 14.7 g/dL (12.0-16.0) Hematocrit 41.8 % (37-47) Mean Corpuscular Volume 91.1 fL (80-100) Mean Corpuscular Hemoglobin 32.0 pg (25-34) Mean Corpuscular Hemoglobin Concent 35.2 g/dl (32-36) Platelet Count 156 K/uL (130-400) Mean Platelet Volume 10.1 fL (7.4-10.4) Neutrophils (%) (Auto) 82.7 % Lymphocytes (%) (Auto) 7.2 % Monocytes (%) (Auto) 8.7 % Eosinophils (%) (Auto) 0.6 % Basophils (%) (Auto) 0.4 % Neutrophils # (Auto) 4.49 K/uL (1.4-6.5) Lymphocytes # (Auto) 0.39 K/uL (1.2-3.4) Monocytes # (Auto) 0.47 K/uL (0.11-0.59) Eosinophils # (Auto) 0.03 K/uL (0-0.5) Basophils # (Auto) 0.02 K/uL (0-0.2) RDW Standard Deviation 41.4 fL (36.4-46.3) RDW Coefficient of Variation 12.5 % (11.5-14.5) Immature Granulocyte % (Auto) 0.4 % Immature Granulocyte # (Auto) 0.02 K/uL (0.00-0.02) Erythrocyte Sedimentation Rate 28 mm/hr (0-21) Prothrombin Time 10.0 SECONDS (9.0-12.0) Prothromb Time International Ratio 1.0 (0.9-1.1) Activated Partial Thromboplast Time 24.4 SECONDS (21.0-31.0) Partial Thromboplastin Ratio 0.9 Anion Gap 10.0 mmol/L (3-11) Est Creatinine Clear Calc Drug Dose 79.8 ml/min Estimated GFR () 99.2 Estimated GFR (Non- 85.6 BUN/Creatinine Ratio 12.7 (10-20) Calcium Level 8.6 mg/dl (8.5-10.1) Total Bilirubin 2.7 mg/dl (0.2-1) Aspartate Amino Transf (AST/SGOT) 18 U/L (15-37) Alanine Aminotransferase (ALT/SGPT) 37 U/L (12-78) Alkaline Phosphatase 95 U/L (45-117) Creatine Kinase MB < 0.5 ng/ml (0.5-3.6) C-Reactive Protein 8.37 mg/dl (0-0.29) Total Protein 7.3 gm/dl (6.4-8.2) Albumin 3.6 gm/dl (3.4-5.0) Globulin 3.7 gm/dl (2.5-4.0) Albumin/Globulin Ratio 1.0 (0.9-2) Lactic Acid Level 1.4 mmol/L (0.4-2.0) Bedside Glucose 259 mg/dl (70-90) Test 10/14/17 16:47 Troponin I < 0.015 ng/ml (0-0.045) Medications Administered Medications (Trade) Dose Ordered Sig/Anshul Route Start Time Stop Time Status Last Admin Dose Admin Sodium Chloride 1,000 ml @ 999 mls/hr Q1H1M STAT IV 10/14/17 13:19 10/14/17 14:19 DC 10/14/17 13:40 999 MLS/HR Acetaminophen (Tylenol Tab) 1,000 mg NOW STAT PO 10/14/17 13:50 10/14/17 13:52 DC 10/14/17 14:16 1,000 MG Ampicillin Sodium/ Sulbactam Sodium 3000 mg/Sodium Chloride 108 ml @ 200 mls/hr ONE STAT IV 10/14/17 15:50 10/14/17 16:22 DC 10/14/17 16:10 200 MLS/HR Ketorolac Tromethamine (Toradol Inj) 30 mg NOW STAT IV 10/14/17 16:26 10/14/17 16:27 DC 10/14/17 16:31 30 MG ECG Indication: chest pain Rate (beats per minute): 86 Rhythm: normal sinus Findings: LBBB Comparison ECG Date: 09/2016 Change: New onset LBBB when compared to previous EKG in September 2016. ED Course The patient was seen and evaluated as above. IV access obtained, and labs drawn. The patient appeared diaphoretic, and complaint of chills. She was borderline tachycardic, and did complain of chest pain and difficulty breathing. Chest x-ray performed. Facial CT scan performed to evaluate the abscess. The patient requested pain medication, but did not want a narcotic. She was given 1 g Tylenol by mouth. EKG reviewed by myself and did show what appears to be new-onset LBBB. The patient does not recall history of this. Repeat Troponin and EKG performed. These tests were unchanged. She does not have active Chest pain. She did have a complete cardiac work-up performed last year for pre-op, and was seen by [facility]. I consulted with Dr. Reyes, as he read the previous echocardiogram, and he recommended outpatient follow-up and work-up regarding LBBB, as the patient is not actively having chest pain while here in the ED. All results were reviewed by myself and Dr. Mike. I did discuss the results of testing with the patient at bedside. The patient was given 3 g Unasyn IV. She was given 1000 mg normal saline solution IV. The patient requested more pain medicine, and states she continues to not want narcotics. She was given 30 mg Toradol IV for her symptoms. Discharge instructions reviewed, and the patient was discharged home in good condition. Medical Decision This is a 62 year old female patient who presents to the ED today complaining of right lower jaw pain, swelling, and abscess of a tooth in the lower right jaw. The patient was seen by a dentist, did have the abscess drained. She needs another procedure performed to remove the abscess, however began experiencing worsening symptoms again yesterday. She was restarted on Pen-Vee K , despite arty being on that antibiotic, and today her symptoms were worsening. While here in the emergency department, the patient did appear diaphoretic, borderline tachycardic, and overall was not feeling well. Labs were initiated, however, the patient then explained that she was having some chest discomfort as well. She is concerned that the infection could get into her blood stream. Though she did not have active chest pain while here in the ED, a cardiac work- up was initiated. Labs were overall non-revealing, without leukocytosis, elevated lactic acid, or abnormal CMP. The patient's CRP was slightly elevated at 8.37 and ESR elevated at 28. She does not appear to be septic based on this work-up. Heart rate did improve while here in the ED. CT scan did show an abscess with moderate soft tissue swelling in the right mandible. Troponin x2 negative. Initial EKG did show new onset LBBB when compared to EKG from last year. This was consistent with repeat EKG. Of note, the patient has not had active chest pain in the ED. Because of the new onset left bundle branch block, I did contact the aviation technician who was on the patient's previous echocardiogram. The aviation technician states if the patient is not having active chest pain and we are able to rule out acute coronary syndrome to the best of our ability with ED workup at this time, he recommended outpatient workup and echocardiogram based on this finding. I do feel that this is reasonable, again given that the patient has not had active chest pain or dyspnea, and had 2 negative troponins here in the emergency department. The patient will follow up with her primary care provider and consider outpatient management at [facility] for further workup. The patient will be treated for the mandibular infection and abscess with an IV dose of Unasyn here in the emergency department and the Pen-Vee K will be switched to Augmentin outpatient. The patient does already have an appointment scheduled with her dentist tomorrow to potentially have the procedure on the tooth. She was encouraged to keep this appointment and follow-up as previously scheduled. All questions were answered to the patient's satisfaction. Differential diagnosis includes periapical abscess, odontalgia, dental caries, ACS, pulmonary embolism, pericarditis, endocarditis, myocarditis, sepsis, pneumonia, malignancy, and others. Medication Reconcilliation Current Medication List: was personally reviewed by me Blood Pressure Screening Patient's blood pressure: Elevated blood pressure Blood pressure disposition: Elevated BP felt to be situational Impression Primary Impression: Periapical abscess Additional Impressions: Chest pain Dyspnea Departure Information Dispostion Home / Self-Care Condition GOOD Prescriptions Amoxicillin & Pot Clavulanate (Augmentin 875-125 mg) 1 Tab Tab 1 TAB PO BID for 10 Days, #20 TAB Prov: Valarie Dodd PA-C 10/14/17 Referrals Eleazar Byod D.O. (PCP) [facility] Patient Instructions ED Abscess Dental, My [facility] Additional Instructions You have been treated in the Emergency Department for Dental Pain. Use the Tylenol #3 you have at home for worsening pain. Take this medication as directed. You were prescribed Augmentin to be taken twice daily, in place of the Penicillin you were previously taking. This is an antibiotic. All antibiotics have the potential to cause diarrhea. Stop this medication and contact a medical provider if you were to develop any significant adverse side effects including: wheezing, shortness of breath, passing out, vomiting, or a diffuse rash. Always take antibiotics as directed and COMPLETE the ENTIRE course regardless of the improvement of your symptoms. For pain control, you can use the following [id number] medicines (if >12 yo): Ibuprofen(Motrin, Advil) may be used for fever or pain. Use 600mg every six hours as needed. Take with food. Avoid using more than 2400mg in a 24 hour period. Do not use 2400mg per day for more than three consecutive days without physician direction. Prolonged inappropriate use can lead to stomach upset or ulcers. (AND/OR) Acetaminophen(Tylenol) may be used for fever or pain. Use 1000mg every six hours as needed. Avoid using more than 3000mg in a 24 hour period. Refrain from smoking cigarettes or using chewing tobacco until you have been evaluated by your dentist. Keeping beverages lukewarm and consuming soft foods can decrease your pain. Warm compresses over the affected area may offer some relief. You MUST seek evaluation of your dental pain by a dentist following your visit to the Emergency Department. The Emergency Department is not capable of treating dental issues long-term. You should call your dentist as soon as possible to make an appointment for evaluation of your dental pain. Follow-up at your regularly scheduled appointment with your dentist tomorrow. As discussed, we did note a Left Bundle Branch Block on your EKG here in the ED. I do recommend outpatient workup with cardiology consult and echocardiogram. You were provided information for cardiology, but I do recommend you follow-up with your PCP this week. Return to the emergency department if you develop the following symptoms despite treatment course outlined above: fever, intractable pain, increased redness, swelling, or purulent discharge. Return if you experience difficulty breathing, chest pain on exertion, or other concerning symptoms. Work Instructions Return To Work: 3 days Problem Qualifiers Additional Impressions: Chest pain Chest pain type: chest pain on breathing Qualified Codes: R07.1 - Chest pain on breathing Dyspnea Dyspnea type: other forms of dyspnea Qualified Codes: R06.09 - Other forms of dyspnea
[2017-10-14 13:49] VITALS: O2SAT 98
[2017-10-14] MEDS ORDERED: ACETAMINOPHEN 500 MG TAB PO STA (13:50)
[2017-10-14 14:08] LABS: BASO % 0.4 %; BASO ABS # 0.02 K/uL (0-0.2); EOS % 0.6 %; EOS ABS # 0.03 K/uL (0-0.5); HEMATOCRIT 41.8 % (37-47); HEMOGLOBIN 14.7 g/dL (12.0-16.0); IG# 0.02 K/uL (0.00-0.02); LYMPH % 7.2 %; LYMPH ABS # 0.39 K/uL (1.2-3.4); MEAN CELL VOLUME 91.1 fL (80-100); MEAN CORPUSCULAR HGB CONC 35.2 g/dl (32-36); MEAN PLATELET VOLUME 10.1 fL (7.4-10.4); MONO % 8.7 %; MONO ABS # 0.47 K/uL (0.11-0.59); NEUT % 82.7 %; NEUT ABS # 4.49 K/uL (1.4-6.5); PLATELET COUNT 156 K/uL (130-400); RED CELL DISTRIBUTION WIDTH CV 12.5 % (11.5-14.5); RED CELL DISTRIBUTION WIDTH SD 41.4 fL (36.4-46.3); WHITE BLOOD COUNT 5.42 K/uL (4.8-10.8)
[2017-10-14] MEDS ORDERED: OPTIRAY 320 IV PRN (14:15)
[2017-10-14 14:21] LABS: PTT PATIENT 24.4 SECONDS (21.0-31.0)
[2017-10-14 14:32] LABS: ALBUMIN 3.6 gm/dl (3.4-5.0); ALT/SGPT 37 U/L (12-78); BLOOD UREA NITROGEN 9 mg/dl (7-18); CALCIUM 8.6 mg/dl (8.5-10.1); CARBON DIOXIDE 23 mmol/L (21-32); CREATININE 0.74 mg/dl (0.60-1.20); GLUCOSE 203 mg/dl (70-99); POTASSIUM 3.7 mmol/L (3.5-5.1); SODIUM 135 mmol/L (136-145)
[2017-10-14 14:37] LABS: ALKALINE PHOSPHATASE 95 U/L (45-117); AST/SGOT 18 U/L (15-37); CKMB < 0.5 ng/ml (0.5-3.6); TOTAL PROTEIN 7.3 gm/dl (6.4-8.2)
--- NOTE | 2017-10-14 14:51 | DIAGNOSTIC IMAGING REPORT ---
CHEST 2 VIEWS ROUTINE HISTORY: Atypical chest pain COMPARISON: Chest 11/04/2016. FINDINGS: The lungs are clear. Cardiac silhouette is normal in size. No pleural effusions. No pneumothorax. IMPRESSION: No acute process. Electronically signed by: Garrison Carter M.D. 10/14/2017 2:50 PM Dictated Date/Time: 10/14/2017 2:48 PM
--- NOTE | 2017-10-14 15:37 | DIAGNOSTIC IMAGING REPORT ---
FACIAL-MAXILLOFACIAL WITH CLINICAL HISTORY: Dental abscess. COMPARISON STUDY: Head CT November 25, 2016. TECHNIQUE: A maxillofacial CT was performed following intravenous injection of 116 cc of Optiray 320 IV. Sagittal and coronal reconstructed reviewed as well as maximal intensity projections on an independent 3-D workstation. FINDINGS: Visualized portions of the intracranial contents are unremarkable. There is moderate inflammation centered on the right hemimandible extending from the lower face and upper neck. There is no mass effect upon the airway. This is likely due to to a cavity of the right second molar, tooth #20. There is a small periapical lucency associated with this tooth as well. There is a suspected tiny associated rim-enhancing fluid collection that measures 1.3 x 0.2 cm which overlies the right body of the mandible. No additional fluid collections are present. IMPRESSION: Moderate right inferior facial/upper neck infiltration consistent with an infectious process which is odontogenic in etiology. Findings are likely due to a cavity with tiny periapical lucency of the right second mandibular premolar. Cellulitis and phlegmon with a tiny associated abscess that measures 1.3 x 0.2 cm, overlying the body of the right hemimandible. Electronically signed by: Shaw Ramirez M.D. 10/14/2017 3:35 PM Dictated Date/Time: 10/14/2017 3:24 PM
[2017-10-14] MEDS ORDERED: AMPICILLIN/SULBACTAM SOD INJ 3,000 MG in SODIUM CHLORIDE 0.9% 100ML 100 ML IV STA (15:50)
[2017-10-14] MEDS ORDERED: AMOX875T PO (16:19)
[2017-10-14] MEDS ORDERED: KETOROLAC TROMETHAMINE 30 MG/ML VIAL IV STA (16:26)
[2017-10-14 18:32] VITALS: BP 159/72; PULSE 86; O2SAT 98
== END 2017-10-14 18:34 | disposition home or self-care (01) ==
LOC: C.EDB 12:20 → C.EDA 18:34
DX: K04.7 Periapical abscess without sinus (principal); R07.1 Chest pain on breathing; R06.09 Other forms of dyspnea; I44.7 Left bundle-branch block, unspecified; E10.9 Type 1 diabetes mellitus without complications; I10 Essential (primary) hypertension; Z85.3 Personal history of malignant neoplasm of breast; Z87.442 Personal history of urinary calculi; Z96.41 Presence of insulin pump (external) (internal); Z90.13 Acquired absence of bilateral breasts and nipples; Z98.890 Other specified postprocedural states; Z83.3 Family history of diabetes mellitus; Z79.02 Long term (current) use of antithrombotics/antiplatelets; Z79.82 Long term (current) use of aspirin; Z79.899 Other long term (current) drug therapy

== ENCOUNTER 2024-11-24 12:29 | Inpatient (IN) ==
[2024-11-24] MEDS: ONDANSETRON INJ 2 MG/ML 2 ML VIAL IV STA ×2 (13:21→17:30)
[2024-11-24] MEDS: PANTOprazole 40 MG/10 ML SYR IV ONE (13:25)
[2024-11-24] MEDS: SODIUM CHLORIDE 0.9% 1,000 ML IV ONE ×2 (13:25→15:27)
--- NOTE | 2024-11-24 13:37 | Emergency Department Note ---
ED Provider Note History of Present Illness Chief Complaint: Flu Like Symptoms Stated Complaint: VOMIT, DIARRHEA Time Seen by Provider: 11/24/24 12:51 Source: patient Mode of arrival: ambulatory Limitations: no limitations Patient is a 69-year-old female that presents to the emergency department with complaints of flulike symptoms since Friday. Patient states that she has been nauseous, vomiting, had diarrhea and generalized bodyaches since Friday. Patient states that her symptoms have caused her difficulty with controlling her blood sugars. Patient states that her blood sugars been running higher because she is unable to keep fluids down. Patient also reports that she has not been able to take her medications. Patient denies any shortness of breath or chest pain. Patient does note some indigestion, stating she has a history of a but has been unable to take her daily omeprazole. Home Medications Medication Instructions Recorded Confirmed Type amlodipine 2.5 mg tablet 2.5 mg PO QAM 01/17/19 11/24/24 History aspirin 81 mg tablet,delayed 81 mg PO QAM 01/17/19 11/24/24 History release (Jose L Low Dose Aspirin) cholecalciferol (vitamin D3) 125 5,000 unit PO QAM 01/17/19 11/24/24 History mcg (5,000 unit) tablet (Vitamin D3) cinnamon bark 500 mg capsule 500 mg PO QAM 01/17/19 11/24/24 History (Cinnamon) vitamin B complex 1 tab PO QAM 01/17/19 11/24/24 History duloxetine 20 mg capsule,delayed 40 mg PO QAM 11/24/24 11/24/24 History release ezetimibe 10 mg tablet 10 mg PO QAM 11/24/24 11/24/24 History gabapentin 300 mg capsule 1,800 mg PO QPM 11/24/24 11/24/24 History gabapentin 300 mg capsule 900 mg PO QAM 11/24/24 11/24/24 History insulin aspart U-100 100 unit/mL See Rx Instructions .Route .COMPLEX 11/24/24 11/24/24 History subcutaneous solution (Novolog U-100 Insulin aspart) semaglutide 2 mg/dose (8 mg/3 mL) 2 mg subcut WK 11/24/24 11/24/24 History subcutaneous pen injector (Ozempic) Allergies Allergy/AdvReac Type Severity Reaction Status Date / Time lisinopril Allergy Mild Unknown Unverified 11/24/24 15:13 Past Med/Surg History Problem List (Updated 11/24/24 @ 17:45 by KIMBERLY Coronel) Nausea & vomiting (Acute) DKA (diabetic ketoacidosis) (Acute) Radial head fracture Diabetes (Chronic) Hypertension (Chronic) Anemia (Acute) Breast pain (Acute) Acute sinusitis Neutropenia Family History Other Family history non-contributory Social History Smoking Status: Never smoker Preferred Language: [place] Feels Safe at Home: Yes Physical Exam Vital Signs Vital Signs - 24 hr 11/24/24 12:30 11/24/24 13:20 11/24/24 15:00 Temperature 36.4 C L Temperature Source Temporal Artery Scan Pulse Rate 111 H 107 H Pulse Rate [Left Finger] 113 H Pulse Rhythm Regular Pulse Rhythm [Left Finger] Regular Pulse Strength [Left Finger] Normal Respiratory Rate 18 18 20 Respiratory Effort / Characteristics Non-Labored Spontaneous Non-Labored Spontaneous Respiratory Depth Normal Normal Respiratory Pattern Regular Regular Blood Pressure 182/82 H Blood Pressure [Left Arm] 164/78 H Blood Pressure Mean 115 Blood Pressure Mean [Left Arm] 106 Blood Pressure Position [Left Arm] Sitting Pulse Oximetry 98 98 98 Oxygen Delivery Method Room Air Room Air Room Air Sepsis Recent Fever Within 48 Hours No Sepsis New/Unexplained Change in Mental Status N/A Sepsis Action Taken by Nursing No Action Required 11/24/24 16:33 Temperature Temperature Source Pulse Rate Pulse Rate [Left Finger] 115 H Pulse Rhythm Pulse Rhythm [Left Finger] Pulse Strength [Left Finger] Respiratory Rate 20 Respiratory Effort / Characteristics Respiratory Depth Respiratory Pattern Blood Pressure Blood Pressure [Left Arm] 147/59 H Blood Pressure Mean Blood Pressure Mean [Left Arm] 88 Blood Pressure Position [Left Arm] Pulse Oximetry 95 Oxygen Delivery Method Room Air Sepsis Recent Fever Within 48 Hours Sepsis New/Unexplained Change in Mental Status Sepsis Action Taken by Nursing VITAL SIGNS - Vital signs and nursing notes were reviewed. GENERAL -69-year-old female appearing their stated age, who is in no acute distress. Communicates well with provider and answers questions appropriately. Patient's is at bedside. HEAD - Normocephalic, Atraumatic. No Rivera's Sign or Raccoon's Eyes. EYES - PERRL with EOMI bilaterally. Sclera anicteric. Conjunctiva pink and moist with no injection. NOSE - Midline and without cyanosis. No epistaxis or purulent drainage noted. NECK - Neck with FROM. Supple to palpation. No lymphadenopathy noted. LUNGS - Chest wall symmetric without accessory muscle use, intercostals retractions, or central cyanosis. Normal vesicular breath sounds CTA B/L. No wheezes, rales, or rhonchi appreciated. CARDIAC - RRR with S1/S2. No murmur, rubs, or gallops appreciated. ABDOMEN-soft and nontender. Bowel sounds present in all 4 quadrants. No palpable masses or ascites noted. EXTREMITIES - No edema present. +5/5 strength noted in UE/LE bilaterally. NEUROLOGIC -Sensory intact to light touch throughout. PSYCH - A&Ox3 and cooperates fully with examiner. Pt is very pleasant and interacts well with examiner Course Administered Medications Insulin Human Regular 250 (units/ Sodium Chloride) 250 mls @ 9 mls/hr IV .Q24H [facility]; Protocol Stop: 12/24/24 14:44 Last Titration: 11/24/24 17:45 Dose: 9 unit/hr, 9 mls/hr Documented By: BABATUNDE Co-signed By: Admin: 11/24/24 15:34 Dose: 7.5 unit/hr, 7.5 mls/hr Documented By: BABATUNDE Co-signed By: ARS Discontinued Medications Sodium Chloride (Nss) 1,000 mls @ 999 mls/hr IV .Q1H1M ONE Stop: 11/24/24 14:07 Last Infusion: 11/24/24 14:58 Dose: Infused Documented By: Admin: 11/24/24 13:25 Dose: 999 mls/hr Documented By: OLENA Pantoprazole Sodium (Protonix) 40 mg in 10 mls @ 5 mls/min IV NOW ONE Stop: 11/24/24 13:08 Last Admin: 11/24/24 13:25 Dose: 5 mls/min Documented By: OLENA Sodium Chloride (Nss) 1,000 mls @ 999 mls/hr IV .Q1H1M ONE Stop: 11/24/24 15:58 Last Infusion: 11/24/24 17:10 Dose: Infused Documented By: Admin: 11/24/24 15:27 Dose: 999 mls/hr Documented By: BABATUNDE Ondansetron HCl (Ondansetron Inj 2 Mg/Ml 2 Ml Vial) 4 mg IV NOW STA Stop: 11/24/24 13:08 Last Admin: 11/24/24 13:21 Dose: 4 mg Documented By: OLENA Ondansetron HCl (Ondansetron Inj 2 Mg/Ml 2 Ml Vial) 4 mg IV NOW STA Stop: 11/24/24 17:28 Last Admin: 11/24/24 17:30 Dose: 4 mg Documented By: BABATUNDE Medical Decision Making Differential Diagnosis Influenza, COVID, norovirus, C. difficile, hyperglycemia, DKA, dehydration, among others. Medical Records Attestation: I reviewed the patient's medical records. Home Medications was personally reviewed by me Laboratory Data Attestation: I reviewed the patient's lab results. 11/24/24 13:07 11/24/24 13:07 Lab Results 11/24/24 11/24/24 11/24/24 Range/Units 13:07 13:27 14:54 WBC 10.17 (4.8-10.8) K/ul RBC 4.90 (4.20-5.40) M/uL Hgb 14.9 (12.0-16.0) g/dl Hct 44.9 (37.0-47.0) % MCV 91.6 (80.0-100.0) fL MCH 30.4 (25.0-34.0) pg MCHC 33.2 (32.0-36.0) g/dL RDW Std Deviation 45.2 (36.4-46.3) fL RDW Coeff of Juan 13.3 (11.5-14.5) % Plt Count 202 (130-400) K/uL MPV 11.8 (9.4-12.4) fL Immature Gran % (Auto) 0.5 % Neut % (Auto) 88.3 % Lymph % (Auto) 6.5 % [place] % (Auto) 3.9 % Eos % (Auto) 0.1 % Baso % (Auto) 0.7 % Neut # (Auto) 8.98 H (1.40-6.50) K/uL Lymph # (Auto) 0.66 L (1.20-3.40) K/uL [place] # (Auto) 0.40 (0.11-0.59) K/uL Eos # (Auto) 0.01 (0.00-0.50) K/uL Baso # (Auto) 0.07 (0.00-0.20) K/uL Immature Gran # (Auto) 0.05 (0.01-0.20) K/uL VBG pH (7.36-7.41) VBG pCO2 (38-50) mmHg VBG pO2 mmHg VBG HCO3 mmol/L VBG O2 Saturation % VBG Base Excess mEq/L Sodium 130 L (136-145) mmol/L Potassium 4.5 (3.5-5.1) mmol/L Chloride 96 L (98-107) mmol/L Carbon Dioxide 12 L (21-32) mmol/L Anion Gap 22 H (3-11) BUN 34 H (6-23) mg/dl Creatinine 1.51 H (0.6-1.2) mg/dl Est Cr Clr Drug Dosing Not Reportable eGFR 36.73 BUN/Creatinine Ratio 22.5 H (10-20) Glucose 831 H* (70-99(Fasting)) mg/dl POC Glucose (70-99) mg/dl Lactate (0.4-2.0) mmol/L Calcium 9.5 (8.6-10.3) mg/dl Total Bilirubin 1.8 H (0.2-1.0) mg/dl AST 13 (13-39) U/L ALT 11 (7-52) U/L Alkaline Phosphatase 54 (34-104) U/L Troponin I High Sens 7.1 (0-14) pg/ml Total Protein 7.0 (6.0-8.3) gm/dl Albumin 4.3 (3.4-5.0) gm/dl Globulin 2.7 (2.5-4.0) gm/dl Albumin/Globulin Ratio 1.6 (0.9-2) Lipase 15 (11-82) U/L Urine Color Yellow Urine Appearance Clear (Clear) Urine pH 5.0 (4.5-7.5) Ur Specific Drifting 1.031 H (1.000-1.030) Urine Protein 1+ H (Negative) Urine Glucose (UA) 3+ H (Negative) Urine Ketones 4+ H (Negative) Urine Blood 1+ H (Negative) Urine Nitrite Negative (Negative) Urine Bilirubin Negative (Negative) Urine Urobilinogen Negative (Negative) Ur Leukocyte Esterase Negative (Negative) Urine WBC (Auto) 6-10 H (0-5) /hpf Urine RBC (Auto) 0-2 (0-2) /hpf U Hyaline Cast (Auto) 11-20 H (0-2) /lpf U Epithel Cells (Auto) 3-5 H (0-2) /hpf Urine Bacteria (Auto) None Seen (None Seen) Adenovirus (PCR) Not Detected (NotDetected) B. pertussis DNA (PCR) Not Detected (NotDetected) B.parapertussis DNA PCR Not Detected (NotDetected) C. pneumoniae DNA (PCR) Not Detected (NotDetected) Coronavirus OC43 (PCR) Not Detected (NotDetected) Coronavirus HKU1 (PCR) Not Detected (NotDetected) Coronavirus 229E (PCR) Not Detected (NotDetected) SARS-CoV-2 (PCR) Not Detected (NotDetected) Coronavirus NL63 (PCR) Not Detected (NotDetected) Human Metapneumovir PCR Not Detected (NotDetected) Influenza Type A (PCR) Not Detected (NotDetected) Influenza Type B (PCR) Not Detected (NotDetected) M. pneumoniae (PCR) Not Detected (NotDetected) Parainfluenza 1 (PCR) Not Detected (NotDetected) Parainfluenza 2 (PCR) Not Detected (NotDetected) Parainfluenza 3 (PCR) Not Detected (NotDetected) Parainfluenza 4 (PCR) Not Detected (NotDetected) RSV (PCR) Not Detected (NotDetected) Entero/Rhino (PCR) Not Detected (NotDetected) 11/24/24 11/24/24 Range/Units 15:17 16:42 WBC (4.8-10.8) K/ul RBC (4.20-5.40) M/uL Hgb (12.0-16.0) g/dl Hct (37.0-47.0) % MCV (80.0-100.0) fL MCH (25.0-34.0) pg MCHC (32.0-36.0) g/dL RDW Std Deviation (36.4-46.3) fL RDW Coeff of Juan (11.5-14.5) % Plt Count (130-400) K/uL MPV (9.4-12.4) fL Immature Gran % (Auto) % Neut % (Auto) % Lymph % (Auto) % [place] % (Auto) % Eos % (Auto) % Baso % (Auto) % Neut # (Auto) (1.40-6.50) K/uL Lymph # (Auto) (1.20-3.40) K/uL [place] # (Auto) (0.11-0.59) K/uL Eos # (Auto) (0.00-0.50) K/uL Baso # (Auto) (0.00-0.20) K/uL Immature Gran # (Auto) (0.01-0.20) K/uL VBG pH 7.14 L (7.36-7.41) VBG pCO2 21 L (38-50) mmHg VBG pO2 122 mmHg VBG HCO3 7 mmol/L VBG O2 Saturation 98.5 % VBG Base Excess -20.0 mEq/L Sodium (136-145) mmol/L Potassium (3.5-5.1) mmol/L Chloride (98-107) mmol/L Carbon Dioxide (21-32) mmol/L Anion Gap (3-11) BUN (6-23) mg/dl Creatinine (0.6-1.2) mg/dl Est Cr Clr Drug Dosing eGFR BUN/Creatinine Ratio (10-20) Glucose (70-99(Fasting)) mg/dl POC Glucose 597 H* (70-99) mg/dl Lactate 4.3 H* (0.4-2.0) mmol/L Calcium (8.6-10.3) mg/dl Total Bilirubin (0.2-1.0) mg/dl AST (13-39) U/L ALT (7-52) U/L Alkaline Phosphatase (34-104) U/L Troponin I High Sens (0-14) pg/ml Total Protein (6.0-8.3) gm/dl Albumin (3.4-5.0) gm/dl Globulin (2.5-4.0) gm/dl Albumin/Globulin Ratio (0.9-2) Lipase (11-82) U/L Urine Color Urine Appearance (Clear) Urine pH (4.5-7.5) Ur Specific Drifting (1.000-1.030) Urine Protein (Negative) Urine Glucose (UA) (Negative) Urine Ketones (Negative) Urine Blood (Negative) Urine Nitrite (Negative) Urine Bilirubin (Negative) Urine Urobilinogen (Negative) Ur Leukocyte Esterase (Negative) Urine WBC (Auto) (0-5) /hpf Urine RBC (Auto) (0-2) /hpf U Hyaline Cast (Auto) (0-2) /lpf U Epithel Cells (Auto) (0-2) /hpf Urine Bacteria (Auto) (None Seen) Adenovirus (PCR) (NotDetected) B. pertussis DNA (PCR) (NotDetected) B.parapertussis DNA PCR (NotDetected) C. pneumoniae DNA (PCR) (NotDetected) Coronavirus OC43 (PCR) (NotDetected) Coronavirus HKU1 (PCR) (NotDetected) Coronavirus 229E (PCR) (NotDetected) SARS-CoV-2 (PCR) (NotDetected) Coronavirus NL63 (PCR) (NotDetected) Human Metapneumovir PCR (NotDetected) Influenza Type A (PCR) (NotDetected) Influenza Type B (PCR) (NotDetected) M. pneumoniae (PCR) (NotDetected) Parainfluenza 1 (PCR) (NotDetected) Parainfluenza 2 (PCR) (NotDetected) Parainfluenza 3 (PCR) (NotDetected) Parainfluenza 4 (PCR) (NotDetected) RSV (PCR) (NotDetected) Entero/Rhino (PCR) (NotDetected) Imaging Data Radiologist's Impression: Chest X-Ray 11/24/24 14:32 XR chest 1V portable CLINICAL HISTORY: DKA COMPARISON STUDY: 01/17/2019 FINDINGS: Single view chest is unchanged. There is no airspace opacity or pleural effusion. The heart and pulmonary vascularity are unremarkable. There is no pneumothorax. IMPRESSION: Stable exam; no acute process ACT 112: Negative or not required by law. Electronically signed by: Jyoti Gilliam M.D. 11/24/2024 2:54 PM MDM Narrative Patient is a 69-year-old female that presents to the emergency department with complaints of flulike symptoms since Friday. Patient states that she has been nauseous, vomiting, had diarrhea and generalized bodyaches since Friday. Patient states that her symptoms have caused her difficulty with controlling her blood sugars. Patient states that her blood sugars been running higher because she is unable to keep fluids down. Patient also reports that she has not been able to take her medications. Patient denies any shortness of breath or chest pain. Patient does note some indigestion, stating she has a history of a but has been unable to take her daily omeprazole. Patient was evaluated by myself and findings are noted in the physical exam above. Patient was ordered IV placement, lab work, urinalysis, [employer] respiratory panel, stool sample and C. difficile. Patient's lab work resulted with a normal white blood cell count of 10.17. Patient had no indication of anemia with a hemoglobin of 14.9 and hematocrit of 44.9. Patient also had a low sodium of 130. Patient also had a carbon dioxide of 12. Patient was ordered a troponin which resulted normal at 7.1. Patient had an EKG that was interpreted by myself to show the patient in a sinus tachycardia with a left bundle branch block which has been noted on her previous EKGs. Patient denies any chest pain at this time. Patient also denies any shortness of breath. Patient had a [employer] respiratory panel completed which came back negative. The patient's glucose level came back significantly elevated at 817. The patient's urine was also positive for 3+ glucose, 4+ ketones, and no indication of infection. The patient appears to be in DKA. I spoke with Dr. Hogue who assisted in ordering the insulin drip for the patient. We also discussed that the patient would need to be admitted to the hospital for further evaluation and management. I reached out to Dr. Calixto with the [facility] hospitalist group and gave him a full report of the patient's chief complaint, current status, and results of her imaging and lab work. Dr. Calixto advised that the patient should also have a chest x-ray, VBG, and a lactic level ordered. I verbalized understanding and ordered the patient the chest x-ray, VBG, and a lactic. The patient's lactic resulted elevated at 4.3. The patient's VBG resulted with a low pH of 7.14 and a low pCO2 of 12. The patient is nontoxic-appearing and resting comfortably in bed. I discussed this and the findings of the additional testing with Dr. Calixto who verbalized understanding and was agreeable to accept the patient under his service for admission to the hospital. The patient had a repeat blood sugar checked after the insulin drip had been running and her repeat blood sugar was now 597. Patient also reported upon reevaluation that she is feeling less nauseous. Please refer to the [facility] hospitalist group's documentation for further evaluation and management of this patient. Impression DKA (diabetic ketoacidosis), Nausea & vomiting Discharge Plan Visit Data Chief Complaint: Flu Like Symptoms Stated Complaint: VOMIT, DIARRHEA ED Provider: Rogelio Hogue ED Midlevel Provider: Eleanor Walker Discharge Problem: DKA (diabetic ketoacidosis), Nausea & vomiting Patient Disposition: Admitted As Inpatient Discharge Problem: DKA (diabetic ketoacidosis) Qualifiers: Diabetes mellitus type: type 1 Diabetes mellitus complication detail: without coma Qualified Code(s): E10.10 - Type 1 diabetes mellitus with ketoacidosis without coma Nausea & vomiting Qualifiers: Vomiting type: unspecified Qualified Code(s): R11.2 - Nausea with vomiting, unspecified
[2024-11-24 13:42] LABS: Basophils # (auto) 0.07 K/uL (0.00-0.20); Basophils % (auto) 0.7 %; Eosinophils # (auto) 0.01 K/uL (0.00-0.50); Eosinophils % (auto) 0.1 %; Hematocrit (blood only) 44.9 % (37.0-47.0); Hemoglobin 14.9 g/dl (12.0-16.0); Immature Granulocytes # (auto) 0.05 K/uL (0.01-0.20); Immature Granulocytes % (auto) 0.5 %; Lymphocytes # (auto) 0.66 K/uL (1.20-3.40); Lymphocytes % (auto) 6.5 %; Mean Corpuscular Hemoglobin 30.4 pg (25.0-34.0); Mean Corpuscular Hgb Conc 33.2 g/dL (32.0-36.0); Mean Corpuscular Volume 91.6 fL (80.0-100.0); Mean Platelet Volume 11.8 fL (9.4-12.4); Monocytes % (auto) 3.9 %; Neutrophils # (auto) 8.98 K/uL (1.40-6.50); Neutrophils % (auto) 88.3 %; Platelet Count 202 K/uL (130-400); RDW Coefficient of Variation 13.3 % (11.5-14.5); RDW Standard Deviation 45.2 fL (36.4-46.3); White Blood Count 10.17 K/ul (4.8-10.8)
[2024-11-24 14:12] LABS: Alanine Aminotransferase 11 U/L (7-52); Albumin Globulin Ratio 1.6 (0.9-2); Albumin Level 4.3 gm/dl (3.4-5.0); Alkaline Phosphatase 54 U/L (34-104); Anion Gap 22 (3-11); BUN Creatinine Ratio 22.5 (10-20); Bilirubin,Total 1.8 mg/dl (0.2-1.0); Blood Urea Nitrogen 34 mg/dl (6-23); Calcium 9.5 mg/dl (8.6-10.3); Carbon Dioxide 12 mmol/L (21-32); Chloride 96 mmol/L (98-107); Globulin 2.7 gm/dl (2.5-4.0); Lipase 15 U/L (11-82); Potassium 4.5 mmol/L (3.5-5.1); Sodium 130 mmol/L (136-145)
[2024-11-24 14:22] LABS: Aspartate Aminotransferase 13 U/L (13-39); Glucose 831 mg/dl (70-99(Fasting))
[2024-11-24 14:28] LABS: Troponin I High Sensitivity 7.1 pg/ml (0-14)
[2024-11-24] MEDS ORDERED: Patient's HEIGHT &/or WEIGHT Needed STA (14:28)
[2024-11-24 14:30] LABS: Adenovirus PCR Not Detected (NotDetected); Bordetella parapertussis PCR Not Detected (NotDetected); Bordetella pertussis PCR Not Detected (NotDetected); Chlamydia pneumoniae PCR Not Detected (NotDetected); Coronavirus 229E PCR Not Detected (NotDetected); Coronavirus CoV-2 (COVID19)PCR Not Detected (NotDetected); Coronavirus HKU1 PCR Not Detected (NotDetected); Coronavirus NL63 PCR Not Detected (NotDetected); Coronavirus OC43PCR Not Detected (NotDetected); Human Metapneumovirus PCR Not Detected (NotDetected); Influenza A PCR Not Detected (NotDetected); Influenza B PCR Not Detected (NotDetected); Mycoplasma pneumoniae PCR Not Detected (NotDetected); Parainfluenza Virus 1 PCR Not Detected (NotDetected); Parainfluenza Virus 2 PCR Not Detected (NotDetected); Parainfluenza Virus 3 PCR Not Detected (NotDetected); Parainfluenza Virus 4 PCR Not Detected (NotDetected); Respiratory Syncytial VirusPCR Not Detected (NotDetected); Rhinovirus/Enterovirus PCR Not Detected (NotDetected)
[2024-11-24] MEDS ORDERED: DEXTROSE 50% 50 ML SYRINGE IV PRN (14:35)
[2024-11-24] MEDS ORDERED: GLUCOSE 40% GEL 15 GM TUBE PO PRN (14:35)
[2024-11-24] MEDS ORDERED: CARBOHYDRATES FOR HYPOGLYCEMIA PO PRN (14:35)
[2024-11-24] MEDS ORDERED: GLUCOSE 10 TAB/TUBE PO PRN (14:35)
[2024-11-24] MEDS ORDERED: GLUCAGON FOR INJ 1 MG VIAL SQ PRN (14:35)
[2024-11-24] MEDS ORDERED: STAT IV Infusion **Titration per Protocol STA (14:35)
--- NOTE | 2024-11-24 14:55 | XRay Report ---
XR chest 1V portable CLINICAL HISTORY: DKA COMPARISON STUDY: 01/17/2019 FINDINGS: Single view chest is unchanged. There is no airspace opacity or pleural effusion. The heart and pulmonary vascularity are unremarkable. There is no pneumothorax. IMPRESSION: Stable exam; no acute process ACT 112: Negative or not required by law. Electronically signed by: Jyoti Gilliam M.D. 11/24/2024 2:54 PM
[2024-11-24 15:29] LABS: Appearance Urine Clear (Clear); Bacteria Urine Automated None Seen (None Seen); Bilirubin Urine Negative (Negative); Blood Urine 1+ (Negative); Color Urine Yellow; Glucose Urine UA 3+ (Negative); Ketones Urine 4+ (Negative); Leukocyte Esterase Urine Negative (Negative); Nitrite Urine Negative (Negative); Protein Urine 1+ (Negative); RBC Urine Automated 0-2 /hpf (0-2); Specific Gravity Urine 1.031 (1.000-1.030); Urobilinogen Urine Negative (Negative)
[2024-11-24] MEDS: INSULIN REGULAR 250 UNITS in SODIUM CHLORIDE 0.9% 247.5 ML IV SCH (15:34)
[2024-11-24 15:42] LABS: HCO3 VBG 7 mmol/L; Oxygen Saturation VBG 98.5 %; PCO2 VBG 21 mmHg (38-50); PO2 VBG 122 mmHg; pH VBG 7.14 (7.36-7.41)
[2024-11-24] MEDS ORDERED: DKA GOAL RANGE 150-250 mg/dl ONE (17:01)
[2024-11-24] MEDS ORDERED: PHARMACY GLYCEMIC MGMT CONSULT PRN ×2 (17:01→20:38)
[2024-11-24] MEDS ORDERED: PENDING 1/2NSS+40mEq KCL IVF SCH (17:15)
[2024-11-24] MEDS ORDERED: PENDING D5 1/2NS+40mEq KCL IVF SCH (17:15)
[2024-11-24] MEDS ORDERED: PENDING 1/2NSS+20mEq KCL IVF SCH (17:15)
[2024-11-24] MEDS ORDERED: SODIUM CHLOR 0.45% + 20MEQ KCL 20 MEQ/1,000 ML BAG IV SCH (17:30)
--- NOTE | 2024-11-24 17:31 | Emergency Department Note ---
ED Visit Note Physician Evaluation Note: Patient was seen in conjunction with the midlevel provider. Please see the midlevel provider note for full details of the patient's visit. I have personally evaluated and examined this patient. Patient's lab work was concerning for DKA therefore I did evaluate the patient at the bedside. On my evaluation the patient is alert, she has clear bilateral breath sounds, her abdomen is soft and nontender. IV fluids were initiated. Patient tells me that she does wear an insulin pump therefore I did ask her to turn it off at this point as she would be initiated on insulin drip, her lab work shows normal potassium at 4.5, she does have an anion gap elevation at 22, serum bicarb is 12, as well as significant elevation of blood sugar greater than 800. I consulted with ED pharmacy and insulin drip orders were placed. I did inform the patient that she would be admitted and she expressed an understanding and an agreement. [facility] the patient was placed for admission in stable condition for further care for diabetic ketoacidosis. I agree with assessment and plan of Eleanor Walker NP. Rogelio Hogue DO .
[2024-11-24] MEDS ORDERED: POLYETHYLENE (MIRALAX) 17 GM PACK PO PRN (18:00)
[2024-11-24] MEDS ORDERED: ACETAMINOPHEN 325 MG TAB PO PRN (18:00)
[2024-11-24] MEDS: INSULIN ASPART PER UNIT CHARGE SC SCH (18:14)
[2024-11-24 19:34] LABS: BUN Creatinine Ratio 22.6 (10-20); Calcium 9.1 mg/dl (8.6-10.3); Creatinine Clr Calc Pharmacy 32.1 ml/min; Phosphorus 3.7 mg/dl (2.5-4.9); Potassium 3.9 mmol/L (3.5-5.1)
--- OUTSIDE RECORDS SUMMARY | 2024-11-24 19:45 | External Medical Summary | Continuity of Care Document ---
Author Name Unknown Organization [facility] [address] Address [address] [place], [place] [id number] Care Team Providers Care Boom Stick Man Name Role Phone Vance Valarie Whitten Primary Care Physician [phone] [id number] Date(s): 09/22/24 - 09/22/24 [facility] [address] [facility] [address] [facility], [address] [place], [place] [phone] Encounter Diagnosis Essential (primary) hypertension(Final) - Hypokalemia(Final) - Discharge Disposition: Home or Self Care Attending Physician: DO Lopez Jason D Referring Physician: DO Lopez Jason D Allergies, Adverse Reactions, Alerts Substance Criticality Severity Reaction Reaction Severity Status lisinopril bronchitis Active Medications aspirin 81 mg oral delayed release tablet Start: 08/12/16 11:07:00 AM EST, 1 tab, PO, qAM Start Date: 08/12/16 Status: Ordered calcium carbonate Start: 03/01/20 1:53:00 PM EDT, 500 = mg, PO, Daily Start Date: 03/01/20 Status: Ordered cinnamon 500 mg oral capsule Start: 08/12/16 11:07:00 AM EST, 1 cap, PO, qAM, Start Date: 08/12/16 Status: Ordered CoQ10 300 mg oral capsule Start: 01/09/22 1:29:00 PM EDT, 1 cap, PO, Daily, Disp# 30 cap, Refills: 3, [facility] Start Date: 01/09/22 Status: Ordered Cymbalta 20 mg oral delayed release capsule Start: 06/28/19 2:10:00 PM EDT, 2 cap, PO, Daily Start Date: 06/28/19 Status: Ordered Entresto 49 mg-51 mg oral tablet Start: 08/20/24 11:50:00 AM EST, 1 tab, PO, bid, Disp# 60 tab, Refills: 3, Pharmacy: [facility] Start Date: 08/20/24 Status: Ordered ezetimibe 10 mg oral tablet Start: 01/23/24 9:33:00 AM EDT, 1 tab, PO, Daily, Disp# 90 tab, Refills: 3, Pharmacy: [facility] Start Date: 01/23/24 Status: Ordered gabapentin 300 mg oral capsule Start: 11/10/23 8:16:00 AM EST, 810 each, 0 Refill(s), TAKE THREE CAPSULES BY MOUTH IN THE MORNING AND SIX CAPSULE IN THE EVENING Start Date: 11/10/23 Status: Ordered Gvoke HypoPen Two Pack 1 mg/0.2 mL subcutaneous solution Start: 10/14/22 10:05:00 AM EST, See Instructions, Disp# 0.4 mL, Refills: 1, USE DIRECTED FOR SEVERE HYPOGLYCEMIA, Pharmacy: [facility] Start Date: 10/14/22 Status: Ordered insulin aspart 100 units/mL injectable solution Start: 04/19/24 6:33:00 PM EDT, 150 unit =, subQ, Daily, Disp# 150 mL, Refills: 3, Pharmacy: [facility] Start Date: 04/19/24 Status: Ordered omeprazole 20 mg oral delayed release capsule Start: 08/12/16 11:04:00 AM EST, 1 cap, PO, Daily Start Date: 08/12/16 Status: Ordered Ozempic (2 mg dose) 8 mg/3 mL subQ pen Start: 07/05/24 11:40:00 AM EDT, 2 mg =, subQ, q7days, Disp# 9 mL, Refills: 3, Pharmacy: [facility] Start Date: 07/05/24 Status: Ordered rosuvastatin 40 mg oral tablet Start: 07/20/24 9:51:00 AM EST, 1 tab, PO, qhs, Disp# 90 tab, Refills: 3, Pharmacy: [facility] Start Date: 07/20/24 Status: Ordered Toprol-XL 25 mg oral tablet, extended release Start: 03/25/22 10:23:00 AM EDT, 1 tab, PO, qhs, Disp# 90 tab, Refills: 3, [facility]acy[facility] Start Date: 03/25/22 Status: Ordered Vitamin B12 Start: 05/27/23 10:08:00 AM EDT, 1,000 mcg =, PO, Daily Start Date: 05/27/23 Status: Ordered Vitamin D3 5000 intl units oral tablet Start: 08/12/16 11:08:00 AM EST, 1 tab, PO, qAM Start Date: 08/12/16 Status: Ordered Problem List Condition Confirmation Course Effective Dates Status H ealth Status Informant Acquired absence of bilateral breasts and nipples Confirmed Active Multiple nevi Confirmed Active BRCA positive Confirmed Active Diabetes mellitus Confirmed Active Left elbow fracture 1 Confirmed Active Gastroparesis Confirmed Active Hyperlipidemia Confirmed Active Hypertension Confirmed Active Insulin pump status Confirmed Active Arthritis Confirmed Active LBBB (left bundle branch block) Confirmed Active Breast cancer Confirmed Active Labial melanotic macule Confirmed Active Osteoporosis Confirmed Active Palpitations Confirmed Active Preop cardiovascular exam Confirmed Active Preop testing Confirmed Active Seborrheic keratoses Confirmed Active Thyroid nodule Confirmed Active TIA (transient ischemic attack) Confirmed Active DM (diabetes mellitus), type 1 Confirmed Active Procedures Procedure Date Related Diagnosis Body Site Status Hx of hysterectomy 1 03/14/17 Comp leted Excision 2 11/22/16 Completed Bilateral implant of silicon e into breast/breast recon 3 10/11/16 Completed Bilateral mastectomy 10/11/16 Comp leted Cataract extraction wayne 2009 C ompleted Carpal tunnel release R 4 2006 Completed Tubal ligation 1975 Completed Biopsy of breast 5 Comple shalini 1Dr Smooth 2bilateral skin flap necrosis 3immediate recon 4right hand 5several Results Laboratory List Name Date Basic Metabolic Panel (BASIC METAB PANEL ) 09/22/24 Most recent to oldest [Reference Range]: 1 eGFR CKD-EPI [>60 mL/min/1.73 m2] 82 mL/ min/1.73 m2 1 (09/22/24 9:08 AM) Estimated CrCl 69.50 mL/min (09/22/24 9:34 AM) Anion Gap [5-14 mmol/L] 4 mmol/L *LOW* (09/22/24 9:08 AM) BUN [7-20 mg/dL] 14 mg/dL (09/22/24 9:08 AM) Ca [8.4-10.2 mg/dL] 8.9 mg/dL (1/8/25 9:08 AM) Cl- [96-107 mmol/L] 108 mmol/L *HI* (09/22/24 9:08 AM) HCO3 [22-30 mmol/L] 28 mmol/L (09/22/24 9:08 AM) Cret [0.60-1.00 mg/dL] 0.77 mg/dL (09/22/24 9:08 AM) Glu [74-106 mg/dL] 107 mg/dL *HI* (09/22/24 9:08 AM) K [3.5-5.1 mmol/L] 3.8 mmol/L (09/22/24 9:08 AM) Na [137-145 mmol/L] 140 mmol/L (09/22/24 9:08 AM) 1Result Comment: Testing Performed By: Dept of Pathology [facility] Lloyd Schultz, [address] [place] [address] [place], [place] [address] Social History Social History Type Response Smoking Status Never smoked cigaret devika Sex Female Sex Representation Female (finding) Implantable Device List Procedure Provider Procedure Date Device Type Site Unknown Unknown 12/02/23 Unknown Unknown Device Identifier Serial Number Lot or Batch Number Manufacturing Date Expiration Date Distinct Identification Code MRI Safety Implantable Status Assigning Authority Unknown Unknown NA Unknown 10/06/26 Unknown Unknown Active Unkn own Unknown Unknown NA Unknown 10/07/26 Unknown Unknown Active Unkn own Patient Care team information Care Team Personnel Name: Cliff Aguilar Kimberly Position: Pharmacist BCMA Member Role: Pharmacy - Lifetime Address: [place] [address] [place] Name: MD Ivory Raymond J Position: Physician - Hem/Onc Member Role: Lifetime Relationship Address: [address] [place] [address] [place] Name: MD Ammon, Papo Position: Physician - Endocrinology Member Role: Lifetime Relationship Address: [address] [place] [address] [place] Name: DO Woodard Amanda Mae Position: Referring DIRECT Member Role: Primary Care Provider Address: [address] [place] [address] [place] Care Team Related Persons Name: EMILY CASTELAN Name: VIOLET CASTELAN Name: VIOLET CASTELAN
--- OUTSIDE RECORDS SUMMARY | 2024-11-24 19:45 | External Medical Summary | Summary of Care ---
Author Name Unknown Organization [facility] Address [address] [place] [address] Phone [phone] Care Team Providers Care Acid Purifier Name Role Phone Valarie Woodard DO Primary Care Provider Encounter Details Date Type Department Care Team (Late st Contact Info) Description 10/11/2024 Orders Only Outcomes Research Department [address] [place] [address] Yessica Dale CHRA [facility] Research Other*[id number] Allergies Active Allergy Reactions Criticality Noted Date Comments Lisinopril 10/22/2004 cough documented as of this encounter (statuses as of 10/11/2024) Medications LANCETS MISCIndications:DM type 1, not at goal ([facility]) BD logic lancets 8x/day 720 4 05/14/20 07 Active ONETOUCH ULTRA TEST STRPIndications:DM type 1, not at goal ([facility]) test 8-10 x/day 3 mos 3 04/27/20 08 Active GLUCAGON EMERGENCY 1 MG IJ KITIndications:DM type 1, not at goal ([facility]) As directed 1 kit 11 12/09/19 09 Active fluticasone (FLONASE) 50 MCG/ACT nasal sprayIndications:A cute sinusitis Administer 2 Sprays into each nostril daily. 3 Bottle 1 04/02/20 16 Active Glucose Blood (ARMANI CONTOUR NEXT TEST) STRPIndications:Ty pe 1 diabetes mellitus with hemoglobin A1c goal of less than 8.0% ([facility]) Test blood sugars 8-10 times daily 300 Strip 11 06/16/20 16 Active furosemide (LASIX) 20 MG TabletIndications: Edema, unspecified type Take 1 tablet by mouth as directed in the morning as needed 90 Tab 05/04/20 18 Active meclizine (ANTIVERT) 25 MG Tablet One pill by mouth up to 3 times a day as needed for dizziness 270 Tab 05/04/20 18 Active Cinnamon 500 MG Oral Capsule Take 1 Capsule by mouth in the morning. Active Vitamin D, Cholecalciferol, 1000 units TABS Take 1 Tablet by mouth in the morning. Active INSULIN ASPART 100 UNIT/ML injection Via insulin pump 09/22/19 19 Active Calcium Carbonate 600 MG Tablet Take 1 Tablet by mouth 2 times a day with morning and evening meals. Active denosumab (PROLIA) 60 MG/ML injection Inject 60 mg under the skin every 6 months. Active nystatin 368257 UNIT/GM cream Apply topically to affected area 2 times a day. To affacted area for two weeks. 30 g 2 01/28/20 20 Active Irbesartan-hydroCH LOROthiazide 150-12.5 MG Oral Tablet TAKE 1 TABLET DAILY 90 Tablet 2 03/07/20 22 Active Metoprolol Tartrate 25 MG Oral Tablet (Lopressor)Indicat ions:HTN, goal below 140/90 Take by mouth 1 Tablet in the morning AND 1 Tablet before bedtime. 180 Tablet 1 03/07/20 22 Active Additional Information Patient taking differently:25 mg OralHS, Reported on 03/10/2024 amLODIPine Besylate 2.5 MG Oral Tablet (Norvasc) Take 1 Tablet by mouth in the morning. 90 Tablet 3 01/27/20 24 Active DULoxetine HCl 20 MG Oral Capsule Delayed Release Particles (Cymbalta)Indicati ons:Type 1 diabetes mellitus with diabetic polyneuropathy ([facility]) TAKE 2 CAPSULES DAILY. DO NOT CUT, CRUSH, OR CHEW 180 Capsule 3 03/08/20 24 Active Ozempic (1 MG/DOSE) 2 MG/1.5ML Subcutaneous Solution Pen-injector (Semaglutide (1 MG/DOSE)) Inject 1 mg under the skin once a week. Active Entresto 97-103 MG Oral Tablet (sacubitril-valsar lennon 97-103 mg per tab) Take 1 Tablet by mouth in the morning and 1 Tablet before bedtime. Active Aspirin 81 MG Oral Tablet Delayed Release Take 1 Tablet by mouth in the morning. Active Rosuvastatin Calcium 40 MG Oral Tablet (Crestor) Take 1 Tablet by mouth in the morning. Active Ezetimibe 10 MG Oral Tablet (Zetia) Take 1 Tablet by mouth in the morning. Active Gabapentin 300 MG Oral Capsule (Neurontin)Indicat ions:Diabetic polyneuropathy associated with type 1 diabetes mellitus (HCC) 900 mg in the morning and 1800 mg at bedtime 810 Capsule 3 04/27/20 24 Active Omeprazole 20 MG Oral Capsule Delayed Release (PriLOSEC) Take 1 Capsule by mouth in the morning. 90 Capsule 2 05/03/20 24 Active documented as of this encounter (statuses as of 10/11/2024) Active Problems Problem Noted Date Diagnosed Date Heart failure 03/24/2024 [facility] current use of therapeutic drug 2021 S/P bilateral mastectomy 11/13/2021 S/P hysterectomy with oophorectomy 11/13/2021 Type 1 diabetes mellitus with diabetic polyneuro clint 04/18/2021 History of breast cancer 04/18/2020 Chemotherapy-induced neuropathy 04/18/2020 Age-related osteoporosis wit hout current pathological fracture 04/18/2020 Insulin long-term use 11/09/2018 Monoallelic mutation of BRCA2 gene 06/12/2018 Overview (06/12/2018): pathogenic BRCA2 gene variant ([id number], p.[id number]) detected via [facility]. Increased risk for Hereditary Breast and Ovarian Cancer Syndrome. No diabetic retinopathy in either eye 05/05/2018 LBBB (left bundle branch block) 04/28/2018 H/O TIA (transient ischemic attack) and stroke 0 04/28/2018 Overview (04/28/2018): 2004, on ASA and Plavix HTN, goal below 140/90 02/26/2016 Overview: Per HTN Protocol Type 1 diabetes mellitus wit h hemoglobin A1c goal of less than 8.0% 12/19/2014 Overview (01/16/2016): ICD-10 update of inactive term GERD (gastroesophageal reflux disease) 3 Hyperlipidemia with target LDL less than 70 08/15 Overview (08/30/2009): Per Lipid Taxonomy. Other allergic rhinitis 04/30/2004 Overview (07/08/2017): ICD-10 update of inactive term Gastroparesis 07/22/2003 Carotid stenosis, non-symptomatic documented as of this encounter (statuses as of 10/11/2024) Resolved Problems Problem Noted Date Diagnosed Date Resolved Date Type 1 diabetes mellitus wit h diabetic polyneuropathy 06/10/2019 04/18/2020 Osteopenia of multiple sites 04/28/2018 04/18/2020 Lipoma 03/06/2016 04/28/2018 General medical exam 12/19/2014 018 Cough 08/30/2014 12/19/2014 Acute sinusitis 10/19/2013 12/19/2014 Need for shingles vaccine 04/15/2013 HTN, goal below 140/80 10/26/201202/28 Overview: Per HTN Protocol Contusion of lower leg 10/26/201212/19 Encounter for examination fo r normal comparison and control in clinical research program 10/13/2012 02/16/2013 Overview (01/01/2021): Diagnosis changed due to Research Module. Go to Snapshot for study details. Nausea 03/24/2012 10/26/2012 Overview (07/08/2017): ICD-10 update of inactive term Acute sinusitis 05/28/2011 03/24/2012 Nausea with vomiting 11/22/2010 012 Dysuria 11/22/2010 03/24/2012 Acute sinusitis 09/12/2010 03/24/2012 Malaise and fatigue 03/27/2010 03/24/20 12 Routine medical exam 03/27/2010 012 Severe obesity with body mas s index (BMI) of 35.0 to 39.9 with serious comorbidity 02/26/2010 Overview (07/01/2018): Per Obesity Protocol, #19 ICD-10 update of inactive diagnosis HTN, goal below 130/80 10/11/200903/24 Overview (10/11/2009): Per HTN Taxonomy. Type 1 diabetes mellitus wit h hemoglobin A1c goal of less than 7.0% 06/29/2009 06/17/2011 Overview (01/15/2016): Modified per Diabetes protocol #14. ICD-10 update of inactive term Type 1 diabetes mellitus wit h background retinopathy 09/01/2006 11/13/2018 Overview (09/17/2006): [facility], left eye mild proliferative changes ADVANCE DIRECTIVE INFORMATION 10/14/2005 04/28/2018 Overview (10/14/2005): No, Advance Directive brochure given to patient at prior appointment. GENERAL OSTEOARTHROSIS 05/30/200403/24 Asthma with severity to be determined 04/30/2004 03/27/2010 Overview (12/25/2015): With infections ICD-10 update of inactive term Other osteoporosis without c urrent pathological fracture 10/31/2003 12/19/2014 Overview (07/08/2017): ICD-10 update of inactive term DM type 1, not at goal 07/27/200306/29 Overview (06/29/2009): Modified per Diabetes protocol #14. Uterine leiomyoma 07/22/2003 03/24/2012 Other specified glaucoma 07/22/200302/2015 Overview (05/02/2008): No current treatment Exam every 4-5 mon Diabetic polyneuropathy 07/22/2003 08/0 12/2019 Overview (12/01/2015): ICD-10 update of inactive term HTN, goal below 140/90 07/22/200310/11 Overview (10/11/2009): Per HTN Taxonomy. PURE HYPERCHOLESTEROLEM 07/22/200308/15 Overview (08/30/2009): Per Lipid Taxonomy. FX ANKLE NOS-CLOSED 07/16/2003 03/24/20 12 Esophagitis 03/24/2012 Overview (06/16/2017): ICD-10 update of inactive term Edema 03/24/2012 Overview (03/27/2010): uses lasix sparingly Type 1 diabetes mellitus wit h hemoglobin A1c goal of 7.0%-8.0% 12/19/2014 Overview (01/16/2016): ICD-10 update of inactive term Breast cancer, BRCA2 positive 04/18/2020 documented as of this encounter (statuses as of 10/11/2024) Immunizations Name Administration Dates Next Due COVID-19 mRNA, LNP-s, No Pre serve, 2-Dose Series (Moderna) 11/23/2020,10/15/2020 COVID-19, mRNA, LNP-s, PF, B ooster, 100mcg/0.5mg (Moderna) 01/22/2022,08/06/2021 Hepatitis B, 0-19 yrs 11/16/2008,10/05/2008 Hepatitis B, 20+ yrs 03/22/2009 MMR-TROY - Measles/Mumps/Rubella/Varicella Vaccine 10/05/2008 PPD 10/05/2008 Pneumococcal Conjugate Vacc, 13 Valent (Prevnar) 04/28/2018 Pneumococcal Polysaccharide PPV23 (Pneumovax) 06/10/2019,07/22/2007,09/15/1997 Seasonal Influenza Vac., MDV , IM, 0.5 mL (Fluzone) 06/10/2015,06/15/2014,06/15/2013,07/07,06/11/2011,06/20/2010,06/15/2009 ,07/14/2008,07/22/2007,07/07/2006 Seasonal Influenza, PF, 6 M & above, IM , (FluLaval or Fluzone) 07/16/2018 Seasonal Influenza, Quadriva lent Hd (Fluzone Hd) 05/16/2023 Seasonal Influenza, Trivalen t, Adjuvanted, 65+ YRS, PF, (Fluad) 05/27/2024,06/10/2019 TDAP (age 10 and older)(Boostrix) 03/11/2019 TDAP, Age 7 and older, IM (Adacel) 05/02/2008 Varicella Zoster Vaccine (Adult) 04/15/2013 Zoster Vaccine Recombinant (Shingrix) 11/23/2019 ,06/10/2019 documented as of this encounter Social History Tobacco Use Types Packs/Day Years Used Date Smoking Tobacco: Never Smokeless Tobacco: Never Alcohol Use Standard Drinks/Week Comments No 0 (1 standard drink = 0.6 oz pur e alcohol) PHQ-2 Answer Date Recorded PHQ Adult Total Score 1 03/07/2021 Hunger Vital Sign Answer Date Recorded Within the past 12 months, y ou worried that your food would run out before you got the money to buy more. Never true 07/14/20 24 Within the past 12 months, t he food you bought just didn't last and you didn't have money to get more. Never true 07/14/2024 Childcare Answer Date Recorded Do you feel overwhelmed with taking care of a child, family member or friend? No 07/14/2024 Does your family need help f inding childcare? (Household - for ages 0-17 years) Not on file 07/14/2024 Clothing Answer Date Recorded Have you been unable to get clothing when it was really needed? No 07/14/2024 Is your family able to get c lothes or diapers when needed? (Household - for ages 0-17 years) Not on file 07/14/2024 Personal Safety Answer Date Recorded Do you feel unsafe or have concerns for your saf ety? No 07/14/2024 Do you have concerns for you r family's safety? (Household - for ages 0-17 years) Not on file 07/14/2024 Utilities Answer Date Recorded Do you have trouble paying y our heating, water, or electric bill? No 07/14/2024 Is your family able to pay t he heat, water, or electric bill? (Household - for ages 0-17 years) Not on file 07/14/2024 Does your family have access to good internet? (Household - for ages 0-17 years) Not on file 07/14/2024 Employment Status Answer Date Recorded Are you unemployed or without regular income? No 07/14/2024 Does the household have a re gular source of income? (Household - for ages 0-17 years) Not on file 07/14/2024 Social Connections Answer Date Recorded How often do you feel lonely or isolated from th ose around you? Never 07/14/2024 Financial Resource Strain Answer Date R ecorded Do you have any trouble payi ng for your medications, or do you think you might in the future? No 07/14/2024 Does your family have troubl e paying for medicine? (Household - for ages 0-17 years) Not on file 07/14/2024 Transportation Needs Answer Date Record ed Do you have trouble getting a ride to medical visits or work? (Adult - for ages 18 years and over) Not on file 07/14/2024 Does your family have a hard time getting a ride to doctors visits? (Household - for ages 0-17 years) Not on file 07/14/2024 Has lack of transportation k ept you from medical appointments, meetings, work, or from getting things needed for daily living? Check all that apply. No 07/14/2024 Do you (or your family) have trouble finding or paying for a ride (transportation)? (Household - for ages 0-17 years) Not on file 07/14/2024 Housing Stability Answer Date Recorded Do you currently live in a s helter or have no steady place to sleep at night? No 07/14/2024 Do you think you are at risk of becoming homeless? (Adult - for ages 18 years and over) Not on file 07/14/2024 Does your family worry about paying for your home or becoming homeless? (Household - for ages 0-17 years) Not on file 1 Are you homeless or worried that you might be in the future? No 07/14/2024 Are you (or your family) cecil eless or worried that you might be in the future? (Household - for ages 0-17 years) Not on file Food Insecurity Answer Date Recorded Do you need food for this week? No 07/14/2024 Are you able to get enough f ood for your family? (Household - for ages 0-17 years) Not on file 07/14/2024 Does your family need food t his week? (Household - for ages 0-17 years) Not on file 07/14/2024 Do you always have enough fo od for your family? 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 Not on file Not on file documented as of this encounter Plan of Treatment Upcoming Encounters Date Type Department Care Team (Late st Contact Info) Description 11/09/2024 8:50 AM EST Office Visit Family Medicine [address] [place] [id number] Valarie Woodard[address] [place] [id number] Scheduled Orders Name Type Priority Associated Diagnoses Orde r Schedule MYCODE SUBSEQUENT ADULT Lab Routine [facility] Other*[id number] Every 6 Months for 2 Occurrences starting 10/11/2024 until 10/31/2025 Scheduled Procedures Name Priority Associated Diagnoses Date/Ti me COLONOSCOPY FLEXIBLE PROXIMA L DIAGNOSTIC Recall History of colonic polyps Health Maintenance Due Date Last Done Comments Hepatitis C Screening 1971 Cologuard 1998 Fecal Occult Blood Test 1998 Sigmoidoscopy 1998 Hepatitis B Vaccine (2 of 3 - 19+ 3-dose series) 04/19/2009 03/22/2009, 11/16/2008, 10/05/2008 Adult Wellness Visit 03/07/2022 03/07/2021 Depression Screening 03/07/2022 03/07/2021 Albumin/Creatinine Ratio 11/11/2023 023, 12/11/2020, 12/10/2018, Additional history exists HbA1c 11/14/2023 05/16/2023, 10/17, 05/06/2022, Additional history exists COVID-19 Vaccine ( season) 2024 06/28/2022, 01/22/2022, 08/06/2021, Additional history exists GFR 05/16/2024 05/16/2023, 10/17, 04/02/2021, Additional history exists Diabetic Eye Exam 09/29/2024 09/29/2023, , 07/23/2021, Additional history exists Diabetic Foot Exam 03/24/2025 03/24/2024, 0 01/22/2022, 04/18/2021, Additional history exists DXA Scan 04/28/2025 04/28/2023, 05/17, 04/08/2017, Additional history exists DTap/Tdap Vaccines (4 - Td or Tdap) 03/11/2029 03/11/2019, 06/18/2017, 05/02/2008 Colonoscopy 03/23/2029 03/23/2024, 07/0 05/2024, 05/28/2018, Additional history exists Colorectal Cancer Screening 03/23/2029 Pneumococcal Vaccine: 50+ Years Completed 06/10/2019, 04/28/2018, 07/22/2007, Additional history exists Zoster Vaccines Completed 11/23/2019, 05/17, 04/15/2013 VITAMIN D LEVEL ONCE IN A LIFETIME-USE SMARTSET# [id number] Completed 01/22/2022, 04/18/2021, 10/25/2005 RETIRED - COLONOSCOPY-EVERY 5 YRS AGES 18-100 Discontinued 03/23/2024, 03/23/2024, 05/28/2018, Additional history exists Influenza Vaccine (FLU shot) Completed 05/27/2024, 05/16/2023, 05/16/2023, Additional history exists HPV (Gardasil) Vaccine Aged Out No lo nger eligible based on patient's age to complete this topic MENINGOCOCCAL (MENACTRA/MENVEO) Aged Out No longer eligible based on patient's age to complete this topic documented as of this encounter Medical Devices Not on filedocumented as of this encounter Visit Diagnoses Diagnosis [employer] Research Other*[id number] documented in this encounter Care Teams Acid Purifier Relationship Specialty Start Date End Date Valarie Woodard DO [address] [place] [address] [place] [phone] PCP - General Internal Medicine 03/23/24 documented as of this encounter
--- OUTSIDE RECORDS SUMMARY | 2024-11-24 19:45 | External Medical Summary | Continuity of Care Document ---
Author Name Unknown Organization [facility] [place] [facility] [address] [id number] Care Team Providers Care Horticultural Manager Name Role Phone Valarie Woodard Primary Care Physician [phone] Encounter [facility] [id number] Date(s): 10/05/24 - 10/05/24 [facility] [address] [facility] [address] [place] [address] Encounter Diagnosis DM (diabetes mellitus), type 1(Discharge Diagnosis) - 10/05/24 Insulin pump status(Discharge Diagnosis) - 10/05/24 Discharge Disposition: Home or Self Care Attending Physician: WALLACE Herbert Amie Allergies, Adverse Reactions, Alerts Substance Criticality Severity Reaction Reaction Severity Status lisinopril bronchitis Active Assessment and Plan Extracted from: Title:TeleHealth Visit Note Author:WALLACE Herbert Amie Date:10/05/24 1.DM (diabetes mellitus), type 1 - Decrease weight to 179 lb.and TDD to 50U in her control IQ settings. - I will review other reports when available and send her any changes if needed. - Try the [facility] infusion set and rotate sites. - Download between visits as needed. - Continue Ozempic 2 mg weekly. - A1c and microalbumin/creatinine ratio ordered. 2.Insulin pump status Follow up as scheduled with me in December and June and Dr. Flor in March. We will schedule another visit in 1 year. Medications aspirin 81 mg oral delayed release [...] Daily, Disp# 30 cap, Refills: 3, Pharmacy: [facility] Start Date: 01/09/22 Status: Ordered Cymbalta 20 mg oral delayed release capsule Start: 06/28/19 2:10:00 PM EDT, 2 cap, PO, Daily Start Date: 06/28/19 Status: Ordered Entresto 49 mg-51 mg oral tablet Start: 08/20/24 11:50:00 AM EST, 1 tab, PO, bid, Disp# 60 tab, Refills: 3, Pharmacy: [facility] Start Date: 08/20/24 Status: Ordered ezetimibe 10 mg oral tablet Start: 01/23/24 9:33:00 AM EDT, 1 tab, PO, Daily, Disp# 90 tab, Refills: 3, Pharmacy: [facility] Start Date: 01/23/24 Status: Ordered gabapentin [...] 1, USE DIRECTED FOR SEVERE HYPOGLYCEMIA, [facility] Start Date: 10/14/22 Status: Ordered insulin aspart 100 units/mL injectable solution Start: 04/19/24 6:33:00 PM EDT, 150 unit =, subQ, Daily, Disp# 150 mL, Refills: 3, Pharmacy: [facility] Start Date: 04/19/24 Status: Ordered omeprazole 20 mg oral delayed release capsule Start: 08/12/16 11:04:00 AM EST, 1 cap, PO, Daily Start Date: 08/12/16 Status: Ordered Ozempic (2 mg dose) 8 mg/3 mL subQ pen Start: 10/05/24 10:50:00 AM EST, 2 mg =, subQ, q7days, Disp# 9 mL, Refills: 3, [facility]acy[facility] Start Date: 10/05/24 Status: Ordered rosuvastatin 40 mg oral tablet Start: 07/20/24 9:51:00 AM EST, 1 tab, PO, qhs, Disp# 90 tab, Refills: 3, [facility]acy[facility] Start Date: 07/20/24 Status: Ordered Toprol-XL 25 mg oral tablet, extended release Start: 03/25/22 10:23:00 AM EDT, 1 tab, PO, qhs, Disp# 90 tab, Refills: 3, Pharmacy: [facility] Start Date: 03/25/22 Status: Ordered Vitamin [...] DM (diabetes mellitus), type 1 Confirmed Active Diagnosis Diagnosis Type Effective Dates Health Status Cl inical Service Informant Insulin pump status Discharge Diagnosis 10/05/24 Non-Specified DM (diabetes mellitus), type 1 Discharge Diagnosis 10/05/24 Non-Specified Procedures Procedure Date Related Diagnosis Body Site Status Hx of hysterectomy 1 03/14/17 Comp leted Excision 2 11/22/16 Completed Bilateral implant of silicon e into breast/breast recon 3 10/11/16 Completed Bilateral mastectomy 10/11/16 Comp leted Cataract extraction wayne 2010 C ompleted Carpal tunnel release R 4 2007 Completed Tubal ligation 1975 Completed Biopsy of breast 5 Comple shalini 1Dr Smooth 2bilateral skin flap necrosis 3immediate recon 4right hand 5several Social History Social History Type Response Smoking [...] Unknown 10/07/26 Unknown Unknown Active [facility]kn own Endocrinology Outpatient Note * WALLACE Herbert Amie: PERFORM Event Display: Endocrinology Outpt Note Authored Date: [id number] TeleHealth Visit Note I have confirmed the patients name and date of . The patient has consented to this service,and I have advised the patient that this is a billable visit for which they may be subject to a copay. The patient initiated this visit after they were informed of the availability of TeleHealth for this medically necessary visit. I am located at home. The patient is located at home. This visit was conducted via live audio/video technology via [employer]. 10/05/24 Chief Complaint Type 1 diabetes follow up History of Present Illness Patient is doing well. She does report recently having a problem with syncopal episodes and she wasseen by her keycase assembler and medications were adjusted. She reports the keycase assembler said she has lost about 40 pounds over the past year and because of that she was getting too high a dose of her antihypertensives causing hypotension and syncope. She reports this has been better since her medications were adjusted. At our last visit we had increased her Ozempic to 2 mg weekly and she is tolerating that well. She continues on the Tandem X2 pump with Dexcom G7 and control IQ. She just got a new phone and did set it up with her pump but only logged in at the time of our visit so it appears her data is still syncing to [employer]. I will review all the reports when available and can send her a message with any settings changes if needed. She reports overall things have been going well. We had increased some of her carb ratios at her last visit and she notes less hypoglycemia now with the lower boluses. We did adjust her weight and TDD in her control IQ settings as both have decreased significantly since they were initially programmed. She has been having occlusions and infusion site issues recently. She uses her abdomen and has beenspreading out to other sites. She uses the autosoft XC or 90 and she does note the cannula is kinked when she takes it out at times. I recommended she try the [employer] and we will send her some samples to try. We reviewed her labs. Last A1c was 7.0% in June. She had to reschedule her ophthalmology appointment yesterday due to weather but will get another visit scheduled soon. Physical Exam Alert and oriented, no acute distress Skin tone normal Breathing rate normal, non-labored respirations Mood appropriate Assessment/Plan 1.DM (diabetes mellitus), type 1 - Decrease weight to 179 lb.and TDD to 50U in her control IQ settings. - I will review other reports when available and send her any changes if needed. - Try the [employer] infusion set and rotate sites. - Download between visits as needed. - Continue Ozempic 2 mg weekly. - A1c and microalbumin/creatinine ratio ordered. 2.Insulin pump status Follow up as scheduled with me in December and June and Dr. Flor in March. We will schedule another visit in 1 year. Attestation Telehealthvisit with patient lasted approximately 35 minutes with >50% spent in counseling, education and coordination of care. Problem List/Past Medical History Ongoing Acquired absence of bilateral breasts and nipples Arthritis BRCA positive Breast cancer Diabetes mellitus DM (diabetes mellitus), type 1 Gastroparesis Hyperlipidemia Hypertension Insulin pump status Labial melanotic macule LBBB (left bundle branch block) Left elbow fracture Multiple nevi Osteoporosis Palpitations Preop cardiovascular exam Preop testing Seborrheic keratoses Thyroid nodule TIA (transient ischemic attack) Medications aspirin(aspirin 81 mg oral delayed release tablet), 81 mg= 1 tab, PO, qAM calcium carbonate, 500 mg, PO, Daily cholecalciferol(Vitamin D3 5000 intl units oral tablet), 5000 Int_Unit= 1 tab, PO, qAM cinnamon(cinnamon 500 mg oral capsule), 500 mg= 1 cap, PO, qAM cyanocobalamin(Vitamin B12), 1000 mcg, PO, Daily DULoxetine(Cymbalta 20 mg oral delayed release capsule), 40 mg= 2 cap, PO, Daily ezetimibe(ezetimibe 10 mg oral tablet), 1 tab, PO, Daily gabapentin(gabapentin 300 mg oral capsule) glucagon(Gvoke HypoPen Two Pack 1 mg/0.2 mL subcutaneous solution), See Instructions insulin aspart(insulin aspart 100 units/mL injectable solution), 150 unit, subQ, Daily metoprolol(Toprol-XL 25 mg oral tablet, extended release), 25 mg= 1 tab, PO, qhs, 3 refills omeprazole(omeprazole 20 mg oral delayed release capsule), 20 mg= 1 cap, PO, Daily rosuvastatin(rosuvastatin 40 mg oral tablet), 40 mg= 1 tab, PO, qhs, 3 refills sacubitril-valsartan(Entresto 49 mg-51 mg oral tablet), 1 tab, PO, bid, 3 refills semaglutide(Ozempic (2 mg dose) 8 mg/3 mL subQ pen), 2 mg, subQ, q7days, 3 refills ubiquinone(CoQ10 300 mg oral capsule), 300 mg= 1 cap, PO, Daily, 3 refills Allergies lisinoprilbronchitis Lab Results June 2024 A1c 7.0%, other labs reviewed in chart Electronic Signature on File CC: Valarie Woodard DO [address] [place] [id number] * Electronically Reviewed/Signed by: Nia Herbert PA-C Author Signature Dt/Tm:10/05/2024 11:26 AM Division of Endocrinology [facility] Patient Care team information Care Team Personnel Name: Cliff Aguilar Kimberly Position: Pharmacist BCMA Member Role: Pharmacy - Lifetime Address: [address] [address] [place] Name: MD Ivory Raymond J Position: Physician - Hem/Onc Member Role: Lifetime Relationship Address: [address] [place] [id number] [place] Name: MD Ammon, Papo Position: Physician - Endocrinology Member Role: Lifetime Relationship Address: [address] [place] [id number] [place] Name: DO Woodard Amanda Mae Position: Referring DIRECT Member Role: Primary Care Provider Address: [address] [place] [address] [place] [address] [place] Care Team Related Persons Name: EMILY CASTELAN Name: VIOLET CASTELAN Name: VIOLET CASTELAN
--- OUTSIDE RECORDS SUMMARY | 2024-11-24 19:45 | External Medical Summary | Continuity of Care Document ---
Author Name Unknown Organization [facility] Address [address] [place] [address] YOVANI ALMEIDA [id number] Care Team Providers Care Information Systems Security Officer Name Role Phone Valarie Woodard Primary Care Physician [phone] Encounter [facility] [id number] Date(s): 11/08/24 - 11/08/24 [facility] [address] [place] [address] [address]- [phone] Encounter Diagnosis Breast cancer(Discharge Diagnosis) - 11/02/24 Osteopenia(Discharge Diagnosis) - 11/08/24 Discharge Disposition: Home or Self Care Attending Physician: MD Ivory Raymond J Referring Physician: MD Ivory Raymond J Encounter Type: [facility] [place] Allergies, Adverse Reactions, Alerts Substance Criticality Severity Reaction Reaction Severity Status lisinopril bronchitis Active Assessment and Plan Extracted from: Title:Oncology Office Visit Note Author:Hui Baker Annie Date:11/08/24 Breast cancer s/p bilateral mastectomy, stage IIA ([id number]), triple negative, BRCA+ - s/p adjuvant docetaxel/cyclophosphamide x 4 cycles (completed 01/21/2017) - no clinical evidence of recurrence - Last PET CT 04/02/21: BRANDI - US ordered prior to next visit. - RTC in 1 year Osteoporosis - -f/u DEXA q 2 years, next one ordered for April 2025. - denosumab every 6 months-due today - f/u vit D level Seborrheic keratoses and multiple nevi - has had f/u manager sign Hypertension Stable DM (diabetes mellitus)-1 Stable Diabetic neuropathy -Managed withNeurontin and cymbalta Attending: I performed all the medical decision making, which is the substantive portion of this visit. Raphael Ivory M.D., Ph.D. Medications aspirin 81 mg oral delayed release tablet Start: 08/12/16 11:07:00 AM EST, 1 tab, PO, qAM Start Date: 08/12/16 Status: Ordered Repeat number: 1 calcium carbonate Start: 03/01/20 1:53:00 PM EDT, 500 = mg, PO, Daily Start Date: 03/01/20 Status: Ordered Repeat number: 1 cinnamon 500 mg oral capsule Start: 08/12/16 11:07:00 AM EST, 1 cap, PO, qAM, Start Date: 08/12/16 Status: Ordered Repeat number: 1 CoQ10 300 mg oral capsule Start: 01/09/22 1:29:00 PM EDT, 1 cap, PO, Daily, Disp# 30 cap, Refills: 3, [facility] Start Date: 01/09/22 Status: Ordered Quantity: 30.0 Unit: cap Repeat number: 4 Cymbalta 20 mg oral delayed release capsule Start: 06/28/19 2:10:00 PM EDT, 2 cap, PO, Daily Start Date: 06/28/19 Status: Ordered Repeat number: 1 Entresto 24 mg-26 mg oral tablet Start: 10/12/24 11:57:00 AM EST, 1 tab, PO, bid, Disp# 60 tab, Refills: 11, [facility]acy[facility] Start Date: 10/12/24 Status: Ordered Quantity: 60.0 Unit: tab Repeat number: 12 ezetimibe 10 mg oral tablet Start: 01/23/24 9:33:00 AM EDT, 1 tab, PO, Daily, Disp# 90 tab, Refills: 3, Pharmacy[facility] Start Date: 01/23/24 Status: Ordered Quantity: 90.0 Unit: tab Repeat number: 1 gabapentin 300 mg oral capsule Start: 11/10/23 8:16:00 AM EST, 810 each, 0 Refill(s), TAKE THREE CAPSULES BY MOUTH IN THE MORNING AND SIX CAPSULE IN THE EVENING Start Date: 11/10/23 Status: Ordered Repeat number: 1 Gvoke HypoPen Two Pack 1 mg/0.2 mL subcutaneous solution Start: 10/14/22 10:05:00 AM EST, See Instructions, Disp# 0.4 mL, Refills: 1, USE DIRECTED FOR SEVERE HYPOGLYCEMIA, [facility]acy: [facility] Start Date: 10/14/22 Status: Ordered Quantity: 0.4 Unit: mL Repeat number: 1 insulin aspart 100 units/mL injectable solution Start: 04/19/24 6:33:00 PM EDT, 150 unit =, subQ, Daily, Disp# 150 mL, Refills: 3, Pharmacy: [facility] Start Date: 04/19/24 Status: Ordered Quantity: 150.0 Unit: mL Repeat number: 1 omeprazole 20 mg oral delayed release capsule Start: 08/12/16 11:04:00 AM EST, 1 cap, PO, Daily Start Date: 08/12/16 Status: Ordered Repeat number: 1 Ozempic (2 mg dose) 8 mg/3 mL subQ pen Start: 10/05/24 10:50:00 AM EST, 2 mg =, subQ, q7days, Disp# 9 mL, Refills: 3, [facility]acy[facility] Start Date: 10/05/24 Status: Ordered Quantity: 9.0 Unit: mL Repeat number: 4 rosuvastatin 40 mg oral tablet Start: 07/20/24 9:51:00 AM EST, 1 tab, PO, qhs, Disp# 90 tab, Refills: 3, Pharmacy: [facility] Start Date: 07/20/24 Status: Ordered Quantity: 90.0 Unit: tab Repeat number: 4 Toprol-XL 25 mg oral tablet, extended release Start: 03/25/22 10:23:00 AM EDT, 1 tab, PO, qhs, Disp# 90 tab, Refills: 3, Pharmacy: [facility] Start Date: 03/25/22 Status: Ordered Quantity: 90.0 Unit: tab Repeat number: 4 Vitamin B12 Start: 05/27/23 10:08:00 AM EDT, 1,000 mcg =, PO, Daily Start Date: 05/27/23 Status: Ordered Repeat number: 1 Vitamin D3 5000 intl units oral tablet Start: 08/12/16 11:08:00 AM EST, 1 tab, PO, qAM Start Date: 08/12/16 Status: Ordered Repeat number: 1 Mental Status 11/08/24 Barriers to Learning one year None evide nt Mandatory Health Literacy Documentation Yes Health Literacy Communication Barriers N ever Primary Language Palauan Problem List Condition Confirmation Course Effective Dates [...] Dates Health Status Cl inical Service Informant Breast cancer Discharge Diagnosis 11/02/24 Osteopenia Discharge Diagnosis 11/08/24 Non-Specified Procedures Procedure Date Related Diagnosis Body [...] hand 5several Results Laboratory List Name Date Complete Blood Count w Differential (CBC ,DIFFH) 11/08/24 Comprehensive Metabolic Panel (COMP META B PANEL) 11/08/24 Lactate Dehydrogenase (LD) 11/08/24 Magnesium Level (MAGNESIUM) 11/08/24 Phosphorus Level (PHOSPHORUS) 11/08/24 Thyroid Stimulating Hormone (TSH) 5 Vitamin D, 25-Hydroxy Level, Total (25-H YDROXY VITAMIN D) 11/08/24 Most recent to oldest [Reference Range]: 1 eGFR CKD-EPI [>60 mL/min/1.73 m2] 68 mL/ min/1.73 m2 (11/08/24 7:24 AM) Vitamin D, 25-Hydroxy [30-100 ng/mL] 44 ng/mL 1 (11/08/24 7:24 AM) Estimated CrCl 58.38 mL/min (11/08/24 8:34 AM) MPV [9.0-12.2 fL] 10.4 fL (11/08/24 7:24 AM) Immature Gran% 0.4 % (11/08/24 7:24 AM) Neut% 55.7 % (11/08/24 7:24 AM) Lymph% 29.9 % (11/08/24 7:24 AM) [place]% 9.2 % (11/08/24 7:24 AM) Baso% 1.3 % (11/08/24 7:24 AM) Eos% 3.5 % (11/08/24 7:24 AM) Immat Gran, Abs [0-0.4 K/uL] 0.02 K/uL (11/08/24 7:24 AM) Neut, Abs [2.0-7.7 K/uL] 3.02 K/uL (11/08/24 7:24 AM) Lymph, Abs [1.0-3.4 K/uL] 1.62 K/uL (11/08/24 7:24 AM) [place], Abs [0-1.0 K/uL] 0.50 K/uL (11/08/24 7:24 AM) Baso, Abs [0-0.1 K/uL] 0.07 K/uL (11/08/24 7:24 AM) Eos, Abs [0-0.5 K/uL] 0.19 K/uL (11/08/24 7:24 AM) Type of Diff: AUTO *Unknown* (11/08/24 7:24 AM) RDW [11.5-14.2 %] 12.9 % (11/08/24 7:24 AM) Anion Gap [5-14 mmol/L] 13 mmol/L (11/08/24 7:24 AM) Alb [3.5-5.2 g/dL] 4.2 g/dL (11/08/24 7:24 AM) Alk Phos [35-115 unit/L] 59 unit/L 2 (11/08/24 7:24 AM) ALT [0-33 unit/L] 13 unit/L (11/08/24 7:24 AM) AST [0-32 unit/L] 21 unit/L (11/08/24 7:24 AM) BUN [6-23 mg/dL] 15 mg/dL (11/08/24 7:24 AM) Ca [8.4-10.2 mg/dL] 9.0 mg/dL (11/08/24 7:24 AM) Cl- [98-107 mmol/L] 107 mmol/L (11/08/24 7:24 AM) HCO3 [22-29 mmol/L] 22 mmol/L (11/08/24 7:24 AM) Cret [0.60-1.00 mg/dL] 0.90 mg/dL (11/08/24 7:24 AM) Glu [74-109 mg/dL] 153 mg/dL 3 *HI* (11/08/24:24 AM) Hct [35-44 %] 43.2 % (11/08/24: AM) Hgb [11.7-15.0 g/dL] 14.2 g/dL (11/08/24 7:24 AM) K [3.5-5.1 mmol/L] 3.6 mmol/L (11/08/24 7:24 AM) LDH [135-250 unit/L] 306 unit/L *HI* (11/08/24 7:24 AM) MCH [28-33 pg] 30.1 pg (11/08/24 7:24 AM) MCHC [32-36 g/dL] 32.9 g/dL (11/08/24 7:24 AM) MCV [81-96 fL] 91.5 fL (11/08/24 7:24 AM) Mg [1.6-2.6 mg/dL] 2.4 mg/dL (11/08/24 7:24 AM) Na [136-145 mmol/L] 142 mmol/L (11/08/24 7:24 AM) PO4 [2.5-4.5 mg/dL] 3.9 mg/dL (11/08/24 7:24 AM) Plts [150-350 K/uL] 273 K/uL (11/08/24 7:24 AM) RBC [3.90-5.00 M/uL] 4.72 M/uL (11/08/24 7:24 AM) T Bili [0.0-1.2 mg/dL] 0.9 mg/dL (11/08/24 7:24 AM) Prot [6.4-8.3 g/dL] 6.9 g/dL (11/08/24 7:24 AM) TSH [0.30-4.20 uIU/mL] 1.88 uIU/mL (11/08/24 7:24 AM) WBC [4.0-10.4 K/uL] 5.42 K/uL (11/08/24 7:24 AM) 1Result Comment: Deficiency: <20 ng/mL Insufficiency: 21-29 ng/mL Sufficiency: 30-100 ng/mL Potenial Toxicity: >150 ng/mL 2Result Comment: Low levels of ALKP may indicate a deficiency in zinc, magnesium, or malnutritionbutcan also be an indicator of a rare genetic disease hypophosphatasia (HPP). 3Result Comment: ADA recommendation for FASTING Serum/Plasma Glucose: Normal: 70-100 mg/dL Prediabetes: 100-125 mg/dL Diabetes: 126 mg/dL or higher Vital Signs Most recent to oldest [Reference Range]: 1 Patient Weight 78.9 kg (11/08/24 8:27 AM) Temperature [36.5-37.9 DegC] 36.5 DegC (11/08/24 8:27 AM) Heart Rate 84 bpm (11/08/24 8:27 AM) Blood Pressure 101/55mmHg (11/08/24 8:27 AM) Cuff Pulse Pressure 46 mmHg (11/08/24 8:27 AM) Social History Social History Type Response Smoking [...] Unknown 10/07/26 Unknown Unknown Active Unkn own Hematology/Oncology Outpt Note * MD Ivory Raymond J: MODIFY MD Ivory Raymond J: MODIFY, PERFORM KIMBERLY Baker Annie: PERFORM, MODIFY KIMBERLY Baker Annie: MODIFY, MODIFY KIMBERLY Bakre Annie: MODIFY, MODIFY KIMBERLY Baker Annie: MODIFY, MODIFY KIMBERLY Baker Annie: MODIFY Event Display: Hematology/Oncology Outpt Note Authored Date: [id number] Chief Complaint follow up History of Present Illness Ms Castelan is a 69 yo woman previously diagnosed with breast cancer stage IIA ([id number])BRCA +, triple negative s/p bilateral mastectomy. She had annual mammograms since the age of 38. Jun 2016 was found to have a 1.1cm mass in left breast. 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 She had bilateral breast MRI in Aug 2016 and was found to have additionalleft oval 6 mm mass 1200 middle depth. She was then referred to genetic counseling and showed [id number]. On Oct 11 2016, she had bilateral mastectomy with reconstruction at the same time. 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 Margin was negative. She completed adj docetaxel and cyclophosphamide x 4 cycles (completed 01/21/2017). She has been receiving denosumab for osteoporosis q6 months. 04/28/2023 MRI. Breast w/ + w/o Contrast Bilateral Bilateral breast MRI: The patient lay prone in a dedicated breast coil. The following sequences were obtained: MRI of both breasts with axial T1, axial T2 with fat saturation, axial T1 dynamically contrast-enhanced with fat saturation and subtraction sequences were performed. 9ml of Gadavist contrast agent was used. Images were reviewed on a high resolution monitor and optimally windowed. There is no evidence of malignancy on MRI. Clinical follow-up is recommended BI-RADS Category 1: NEGATIVE. 04/28/2023 BD Bone Density DEXA Axial Skeleton 1. There is low bone mass (osteopenia) according to the WHO classification. 2. Interval Change: Significantly increased. 3. FRAX Report: Not applicable since the patient is on treatment for osteoporosis. Interval f/u on 11/08/24: Lynn is here today for her 1 year evaluation with unchanged bilateral breast pain since reconstruction. OVerall, reports doing well. Denies any breast changes, lumps, or bumps. Does note some R breast pain by axilla at surgical scar. States she thinks it is from implant as she has same pain last year prior to implant change. Eating and hydrating well. Has intentional weight loss. Denies any recent hospitalizations or illnesses. Denies any other pain. To receive prolia today. Review of Systems No fevers, chills, night sweats, weight loss, headaches, vision changes, dizziness, lightheadedness, falls, dyspnea, chest pain, abdominal pain, dysuria, hematuria, ecchymoses, petechiae, rashes, or temperature sensitivities. Otherwise complete 14 point review of systems was conducted and negative. Physical Exam Vital Signs and Measurements This Visit - Last 24 Hours T:36.5C HR:84(Monitored) BP:101/55 SpO2:100% WT:78.9kg General:Obese. NAD. Pleasant. HEENT:PERRL, EOM intact, no scleral icterus, mucous membranes are moist, no oropharyngeal lesions Cardiac:Regular heart rate and rhythm, no murmurs appreciated, no peripheral edema in all extremities Respiratory:lung sounds are clear to auscultation bilaterally with no wheezes/rales/rhonchi GI:abdomen is soft, non-tender, non-distended, bowel sounds in all quadrants Lymph:No adenopathy palpated in cervical, supraclavicular, axillary or inguinal regions Psych:normal mood and effect, appropriate responses Musculoskeletal:extremities symmetrical, no joint swelling/ deformities. Neuro:No focal deficits, speech is clear, language is intact. Skin:Skin is warm and dry. Seborrheic keratoses.Multiple nevi Breast exam chaperonedwith RN Hope: nipples absent bilaterally, symmetrical, no skin dimpling or color changes, no tenderness. Performance Scales and Status No documentation within the last 12 months Pain Score:NO PAIN SCORE DOCUMENTED ON THIS VISIT No Distress Inventory data found in past 90 days Assessment/Plan Breast cancer s/p bilateral mastectomy, stage IIA ([id number]), triple negative, BRCA+ - s/p adjuvant docetaxel/cyclophosphamide x 4 cycles (completed 01/21/2017) - no clinical evidence of recurrence - Last PET CT 04/02/21: BRANDI - US ordered prior to next visit. - RTC in 1 year Osteoporosis - -f/u DEXA q 2 years, next one ordered for April 2025. - denosumab every 6 months-due today - f/u vit D level Seborrheic keratoses and multiple nevi - has had f/u manager sign Hypertension Stable DM (diabetes mellitus)-1 Stable Diabetic neuropathy -Managed withNeurontin and cymbalta Attending: I performed all the medical decision making, which is the substantive portion of this visit. Raphael Ivory M.D., Ph.D. Staging Information No information available Problem List/Past Medical History Ongoing Acquired absence of bilateral breasts and nipples Arthritis BRCA positive Breast cancer Diabetes mellitus DM (diabetes mellitus), type 1 Gastroparesis Hyperlipidemia Hypertension Insulin pump status Labial melanotic macule LBBB (left bundle branch block) Left elbow fracture Multiple nevi Osteoporosis Palpitations Preop cardiovascular exam Preop testing Seborrheic keratoses Thyroid nodule TIA (transient ischemic attack) Procedure/Surgical History Hx of hysterectomy| Service Date: 03/14/2017Excision| Service Date: 11/22/2016Bilateral implant of silicone into breast/breast recon| Service Date: 10/11/2016Bilateral mastectomy| ServiceDate: 10/11/2016Cataract extraction wayne| Service Date: 2009Carpal tunnel release R| Service Date: 2006Tubal ligation| Service Date: 1975Biopsy of breast Medications aspirin(aspirin 81 mg oral delayed release [...] 1 tab, PO, qhs, 3 refills sacubitril-valsartan(Entresto 24 mg-26 mg oral tablet), 1 tab, PO, bid, 11 refills semaglutide(Ozempic (2 mg dose) 8 mg/3 mL subQ pen), 2 mg, subQ, q7days, 3 refills ubiquinone(CoQ10 300 mg oral capsule), 300 mg= 1 cap, PO, Daily, 3 refills Allergies lisinoprilbronchitis Social History Smoking Status Never smoked cigarettes Tobacco Use:Never smoker Family History Breast cancer: Paternal Aunt. Heart attack: Brother. Type II diabetes mellitus: PGM. Health Status Family Member(s) Labs Na: 142 mmol/L (11/08/24 07:24:00) K: 3.6 mmol/L (11/08/24 07:24:00) Cl-: 107 mmol/L (11/08/24 07:24:00) BUN: 15 mg/dL (11/08/24 07:24:00) Cret: 0.9 mg/dL (11/08/24 07:24:00) Glu:153 mg/dLHigh (11/08/24 07:24:00) Ca: 9 mg/dL (11/08/24 07:24:00) M.4 mg/dL (11/08/24 07:24:00) PO4: 3.9 mg/dL (11/08/24 07:24:00) WBC: 5.42 K/uL (11/08/24 07:24:00) Hgb: 14.2 g/dL (11/08/24 07:24:00) Hct: 43.2 % (11/08/24 07:24:00) MCV: 91.5 fL (11/08/24 07:24:00) Plts: 273 K/uL (11/08/24 07:24:00) Neut%: 55.7 % (11/08/24 07:24:00) Baso%: 1.3 % (11/08/24 07:24:00) Neut, Abs: 3.02 K/uL (11/08/24 07:24:00) Lymph, Abs: 1.62 K/uL (11/08/24 07:24:00) ALT: 13 unit/L (11/08/24 07:24:00) T Bili: 0.9 mg/dL (11/08/24 07:24:00) Alk Phos: 59 unit/L (11/08/24 07:24:00) AST: 21 unit/L (11/08/24 07:24:00) [1]Oncology Office Visit Note; WALLACE Peterson Judy 11/10/2023 08:26 EST Electronic Signature on File Electronically Reviewed/Signed by: KIMBERLY Chavez Author Signature Dt/Tm:11/08/2024 09:19 AM Division of Hematology Oncology Electronically Reviewed/Signed by: Raphael Ivory MD Cosigner Signature Dt/Tm: 11/08/2024 11:26 AM Division of Hematology Oncology AC Patient Care team information Care Team Personnel Name: Cliff Aguilar Kimberly Position: Pharmacist BCMA Member Role: Pharmacy - Lifetime Address: [address] Name: MD Ivory Raymond J Position: Physician - Hem/Onc Member Role: Lifetime Relationship Address: [address] [place] [address] Telecom: [phone] Name: MD Ammon, Papo Position: Physician - Endocrinology Member Role: Lifetime Relationship Address: [address] [place] [address] Telecom: [phone] Name: DO Woodard Amanda Mae Position: Referring DIRECT Member Role: Primary Care Provider Address: [address] [place] [address] Telecom: [phone] Care Team Related Persons Name: EMILY CASTELAN Name: VIOLET CASTELAN Name: VIOLET CASTELAN Insurance Providers Guarantor name: LYNN CASTELAN Health Plan Information #: 1 Payer: MEDICARE Member Number: [id number] Policy Number: NA Group Number: NA Health Plan Information #: 2 Payer: [employer] Member Number: [id number] Policy Number: NA Group Number: NA
--- OUTSIDE RECORDS SUMMARY | 2024-11-24 19:45 | External Medical Summary | Continuity of Care Document ---
Author Name Unknown Organization [place] [place] [id number] Address [address] [place] [id number] Care Team Providers Care Internet Security Specialist Name Role Phone Valarie Woodard Primary Care Physician [phone] [id number] Date(s[facility] 09/22/24 - 09/22/24 [facility] [address], [address] [place] [address] [phone] Encounter Diagnosis Syncope(Discharge Diagnosis) - 09/22/24 Obesity(Discharge Diagnosis) - 09/22/24 LBBB (left bundle branch block)(Discharge Diagnosis) - 09/22/24 NICM (nonischemic cardiomyopathy)(Discharge Diagnosis) - 09/22/24 Discharge Disposition: Home or Self Care Attending Physician: KIMBERLY Mina Sarah A Allergies, Adverse Reactions, Alerts Substance Criticality Severity Reaction Reaction Severity Status lisinopril bronchitis Active Assessment and Plan Extracted from: Title:Cardiology Office Visit Note Author:KIMBERLY Jain rd, Sarah A Date:09/22/24 Impression: 1.Hyperlipidemia 2.Hypertension 3.LBBB (left bundle branch block) 4. Orthostatic hypotension 5. Acute kidney injury secondary to low blood pressure and dehydration Ms. Castelan feels much betteron the reduced dose of Entresto. She did have concernabout not being on the highest dose as well as having come off of the Farxigaas she wants to provide as muchprotection for her heart as possible. I discussed with her that we try and push these medicationsas far as someone can tolerate butclearlywe cannot have herfainting from low blood pressureand so it is okay that we have her on dosing that she is on. AdditionallyOzempic is providing herwith some benefits and reduction in heart failure and coronary events which she was pleased to hear. At this point I would leave hermedications where they are. We did discuss that if she would lose further weight and get more lightheaded againwe may need to dial back the Entresto tolow-dose. We also discussed that weight lossis helpfulfor reducingrisk for heart failure as well. Encouraged her to get at least 30 minutes of moderatecardiovascular size per day perthe [place] [employer]'s recommendation. She can break this up into smaller increments throughout the dayif that works better for her. She will return to the clinic in 3 months Medications aspirin 81 mg oral delayed release [...] bid, Disp# 60 tab, Refills: 3, [facility] Start Date: 08/20/24 Status: Ordered ezetimibe 10 mg oral tablet Start: 01/23/24 9:33:00 AM EDT, 1 tab, PO, Daily, Disp# 90 tab, Refills: 3, Pharmacy: [facility] Start Date: 01/23/24 Status: Ordered gabapentin [...] 1, USE DIRECTED FOR SEVERE HYPOGLYCEMIA, Pharmacy: [facility] Start Date: 10/14/22 Status: Ordered insulin aspart 100 units/mL injectable solution Start: 04/19/24 6:33:00 PM EDT, 150 unit =, subQ, Daily, Disp# 150 mL, Refills: 3, Pharmacy: [facility] Start Date: 04/19/24 Status: Ordered omeprazole 20 mg oral delayed release capsule Start: 08/12/16 11:04:00 AM EST, 1 cap, PO, Daily Start Date: 08/12/16 Status: Ordered Ozempic (2 mg dose) 8 mg/3 mL subQ pen Start: 07/05/24 11:40:00 AM EDT, 2 mg =, subQ, q7days, Disp# 9 mL, Refills: 3, Pharmacy: [facility] Start Date: 07/05/24 Status: Ordered rosuvastatin 40 mg oral tablet Start: 07/20/24 9:51:00 AM EST, 1 tab, PO, qhs, Disp# 90 tab, Refills: 3, Pharmacy: [facility] Start Date: 07/20/24 Status: Ordered Toprol-XL [...] PO, qAM Start Date: 08/12/16 Status: Ordered Mental Status 09/22/24 Barriers to Learning one year None evide nt Mandatory Health Literacy Documentation Yes Health Literacy Communication Barriers N ever Primary Language Lithuanian Problem List Condition Confirmation Course Effective Dates [...] Dates Health Status Cl inical Service Informant Obesity Discharge Diagnosis 09/22/24 Non-Specified LBBB (left bundle branch block) Discharge Diagnosis 09/22/24 Non-Specified Syncope Discharge Diagnosis 09/22/24 Non-Specified NICM (nonischemic cardiomyopathy) Discharge Diagnosis 09/22/24 Non-Specified Procedures Procedure Date Related Diagnosis Body [...] flap necrosis 3immediate recon 4right hand 5several Vital Signs Most recent to oldest [Reference Range]: 1 Patient Weight 82 kg (09/22/24 9:49 AM) Heart Rate 84 bpm (09/22/24 9:49 AM) Respiratory Rate 18 br/min (09/22/24 9:49 AM) Blood Pressure 102/64mmHg (09/22/24 9:49 AM) BP Location # 1 Left Arm (09/22/24 9:49 AM) Social History Social History Type Response [...] Unknown 10/07/26 Unknown Unknown Active [facility] own Cardiology Outpatient Note * KIMBERLY Mina Sarah A: PERFORM, MODIFY Event Display: Cardiology Outpt Note Authored Date: [id number] Primary Care Provider DO Woodard Amanda Mae Chief Complaint -1mo F/U dizziness or lightheadedness resolved Denies chest pain/pressure, Palpitations, heart racing, no SOB or edema. - no unusual bleeding no resent ER visits History of Present Illness Ms. Castelan presents for follow up of her history of LBBB, hld, and mildly reduced EF. She was seen a month ago by Dr. Lopez for complaints of dizziness and syncope. This has resolvedwith reduction in her Entresto dosing. She has occasional lightheadedness but is much better and she has not had any falls. She has lost a total of15 kg on Ozempic. No sob or chest pain. She does not exercise. Review of Systems All other systems reviewed and negative except as discussed in the HPI Physical Exam Vitals & Measurements HR:84(Monitored) RR:18 BP:102/64 SpO2:97% WT:82kg WT:82.000kg(Dosing) Physical Examination General: Alert and oriented, No acute distress. Neck: No jugular venous distention. Respiratory: Lungs are clear to auscultation, Respirations are non-labored. Cardiovascular: Normal rate, Regular rhythm, No murmur, No edema. Integumentary: Warm, Dry, [place] Neurologic: Alert, Oriented. Cognition and Speech: Speech clear and coherent. Psychiatric: Cooperative, Appropriate mood & affect. Assessment/Plan Impression: 1.Hyperlipidemia 2.Hypertension 3.LBBB (left bundle branch block) 4. Orthostatic hypotension 5. Acute kidney injury secondary to low blood pressure and dehydration Ms. Castelan feels much betteron the reduced dose of Entresto. She did have concernabout notbeing on the highest dose as well as having come off of the Farxigaas she wants to provide as muchprotection for her heart as possible. I discussed with her that we try and push these medicationsas far as someone can tolerate butclearlywe cannot have herfainting from low blood pressureand so it is okay that we have her on dosing that she is on. AdditionallyOzempic is providingherwith some benefits and reduction in heart failure and coronary events which she was pleased tohear. At this point I would leave hermedications where they are. We did discuss that if she would lose further weight and get more lightheaded againwe may need todial back the Entresto tolow-dose. We also discussed that weight lossis helpfulfor reducingrisk for heart failure as well. Encouraged her to get at least 30 minutes of moderatecardiovascular size per day perthe [place] [employer]'s recommendation. She can break this up into smaller increments throughout thedayif that works better for her. She will return to the clinic in 3 months Problem List/Past Medical History Ongoing Acquired absence [...] diabetes mellitus: PGM. Health Status Family Member(s) Electronic Signature on File CC: Valarie Woodard DO [address] [place] [id number] * Electronically Reviewed/Signed by: KIMBERLY Villa Author Signature Dt/Tm:09/22/2024 10:19 AM [facility] Patient Care team information Care Team Personnel Name: Cliff Aguilar Kimberly Position: Pharmacist BCMA Member Role: Pharmacy - Lifetime Address: [place] [address] [place] Name: MD Ivory Raymond J Position: Physician - Hem/Onc Member Role: Lifetime Relationship Address: [address] [place] [address] [place] Name: MD Ammon, Papo Position: Physician - Endocrinology Member Role: Lifetime Relationship Address: [address] [place] [address] [place] Name: DO Woodard Amanda Mae Position: Referring DIRECT Member Role: Primary Care Provider Address: [address] [place] [address] [place] Care Team Related Persons Name: EMILY CASTELAN Name: VIOLET CASTELAN Name: VIOLET CASTELAN"
--- OUTSIDE RECORDS SUMMARY | 2024-11-24 19:45 | External Medical Summary | Continuity of Care Document ---
Author Name Unknown Organization [facility] Address [address] [place] [address] [place] [phone] Care Team Providers Care Esthetician Permanent Makeup Artist Name Role Phone Valarie Woodard Primary Care Physician [phone] Encounter [facility] [id number] Date(s): 11/08/24 - 11/08/24 [facility] [address] [facility] [address], [place] [id number]- [phone] Discharge Disposition: Home or Self Care Attending Physician: WALLACE Herbert Amie Referring Physician: WALLACE Herbert Amie Encounter Type: [facility] Allergies, Adverse Reactions, Alerts Substance Criticality Severity [...] bid, Disp# 60 tab, Refills: 11, Pharmacy: [facility] Start Date: 10/12/24 Status: Ordered Quantity: 60.0 Unit: tab Repeat number: 12 ezetimibe 10 mg oral tablet Start: 01/23/24 9:33:00 AM EDT, 1 tab, PO, Daily, Disp# 90 tab, Refills: 3, Pharmacy: [facility] Start Date: 01/23/24 Status: Ordered Quantity: [...] 1, USE DIRECTED FOR SEVERE HYPOGLYCEMIA, Pharmacy: [facility] Start Date: 10/14/22 Status: Ordered Quantity: 0.4 Unit: mL Repeat number: 1 insulin aspart 100 units/mL injectable solution Start: 04/19/24 6:33:00 PM EDT, 150 unit =, subQ, Daily, Disp# 150 mL, Refills: 3, Pharmacy: [facility] Start Date: 04/19/24 Status: Ordered Quantity: [...] [facility] Start [facility]: 07/20/24 Status: Ordered Quantity: 90.0 Unit: tab Repeat number: 4 Toprol-XL 25 mg oral tablet, extended release Start: 03/25/22 10:23:00 AM EDT, 1 tab, PO, qhs, Disp# 90 tab, Refills: 3, Pharmacy: [facility] Start Date: 03/25/22 Status: Ordered Quantity: 90.0 Unit: tab Repeat number: 4 Vitamin B12 Start: 05/27/23 10:08:00 AM EDT, 1,000 mcg =, PO, Daily Start Date: 05/27/23 Status: Ordered Repeat number: 1 Vitamin D3 5000 intl units oral tablet Start: 08/12/16 11:08:00 AM EST, 1 tab, PO, qAM Start Date: 08/12/16 Status: Ordered Repeat number: 1 Problem List Condition Confirmation Course Effective Dates [...] hand 5several Results Laboratory List Name Date Microalbumin, Urine, Random (MICROALBUMI N, RD UR) 11/08/24 Hemoglobin A1C (HEMOGLOBIN, A1C) 11/08/24 Most recent to oldest [Reference Range]: 1 Estimated Average Glucose 137 mg/dL (11/08/24 7:25 AM) Micro Alb (u) [<2.00 mg/dL] 66.01 mg/dL *HI* (11/08/24 7:26 AM) HbA1c [<5.7 %] 6.4 % 1 *HI* (11/08/24 7:25 AM) Micro Alb Ratio [<20 ug/mg cret] 428 ug/ mg cret *HI* (11/08/24 7:26 AM) Creat (u) 154.30 mg/dL 2 (11/08/24 7:26 AM) 1Result Comment: ADA Recommended [place] Reference Range: Normal: <5.7% Prediabetes: 5.7-6.4% Diabetes: >6.4% Hb A1c results in patients with severe anemia or recent RBC transfusion are unreliable and do not represent the patient glycemic control. 2Result Comment: Reference Range for Random Urine Not Established. Social History Social History Type Response Smoking [...] BCMA Member Role: Pharmacy - Lifetime Address: [address] [address] Name: MD Ivory Raymond J Position: Physician - Hem/Onc Member Role: Lifetime Relationship Address: [address] [place] [address] [place] Telecom: [phone] Name: MD Ammon, Papo Position: Physician - Endocrinology Member Role: Lifetime Relationship Address: [address] [place] [address] [place] Telecom: [phone] Name: DO Woodard Amanda Mae Position: Referring DIRECT Member Role: Primary Care Provider Address: [address] [place] [address] Telecom: [phone] Care Team Related Persons Name: EMILY CASTELAN Name: VIOLET CASTELAN Name: VIOLET CASTELAN Insurance Providers Guarantor name: BOOM CASTELAN Health Plan Information #: 1 Payer: MEDICARE Member Number: [id number] Policy Number: NA Group Number: NA Health Plan Information #: 2 Payer: [facility] Member Number: [id number] Policy Number: NA Group Number: NA
--- OUTSIDE RECORDS SUMMARY | 2024-11-24 19:46 | External Medical Summary | Summary of Care ---
Author Name Unknown Organization [facility] Address [address] [place] [address] Phone [phone] Care Team Providers Care Associate Professor Of Medicine Name Role Phone Valarie Woodard DO Primary Care Provider [phone] Encounter Details Date Type Department Care Team (Late st Contact Info) Description 07/13/2024 Result Scan Unspecified Department <No scans attached> Allergies Active Allergy Reactions Criticality Noted Date Comments Lisinopril 10/22/2004 cough documented as of this encounter (statuses as of 07/14/2024) Medications Medication Sig Dispensed Refills Start Date End Date Status LANCETS MISCIndications:DM type 1, not at goal ([facility]) BD logic lancets 8x/day 720 4 05/14/2007 Active ONETOUCH ULTRA TEST STRPIndications:DM type 1, not at goal ([facility]) test 8-10 x/day 3 mos 3 04/27/2008 Active GLUCAGON EMERGENCY 1 MG IJ KITIndications:DM type 1, not at goal ([facility]) As directed 1 kit 11 12/08/2008 Active fluticasone (FLONASE) 50 MCG/ACT nasal sprayIndications:Acu te sinusitis Administer 2 Sprays into each nostril daily. 3 Bottle 1 04/02/2016 Active Glucose Blood (ARMANI CONTOUR NEXT TEST) STRPIndications:Type 1 diabetes mellitus with hemoglobin A1c goal of less than 8.0% ([facility]) Test blood sugars 8-10 times daily 300 Strip 11 06/16/2016 Active furosemide (LASIX) 20 MG TabletIndications:Ed kelsey, unspecified type Take 1 tablet by mouth as directed in the morning as needed 90 Tab 05/04/2018 Active meclizine (ANTIVERT) 25 MG Tablet One pill by mouth up to 3 times a day as needed for dizziness 270 Tab 05/04/2018 Active Cinnamon 500 MG Oral Capsule Take 1 Capsule by mouth in the morning. Active Vitamin D, Cholecalciferol, 1000 units TABS Take 1 Tablet by mouth in the morning. Active INSULIN ASPART 100 UNIT/ML injection Via insulin pump 09/22/2018 A ctive Calcium Carbonate 600 MG Tablet Take 1 Tablet by mouth 2 times a day with morning and evening meals. Active denosumab (PROLIA) 60 MG/ML injection Inject 60 mg under the skin every 6 months. Active nystatin 048701 UNIT/GM cream Apply topically to affected area 2 times a day. To affacted area for two weeks. 30 g 2 01/28/2020 Active Irbesartan-hydroCHLO ROthiazide 150-12.5 MG Oral Tablet TAKE 1 TABLET DAILY 90 Tablet 2 03/07/2022 Active Metoprolol Tartrate 25 MG Oral Tablet (Lopressor)Indicatio ns:HTN, goal below 140/90 Take by mouth 1 Tablet in the morning AND 1 Tablet before bedtime. 180 Tablet 1 03/07/2022 Active Additional Information Patient taking differently:25 mg OralHS, Reported on 03/10/2024 amLODIPine Besylate 2.5 MG Oral Tablet (Norvasc) Take 1 Tablet by mouth in the morning. 90 Tablet 3 01/27/2024 Active DULoxetine HCl 20 MG Oral Capsule Delayed Release Particles (Cymbalta)Indication s:Type 1 diabetes mellitus with diabetic polyneuropathy (HCC) TAKE 2 CAPSULES DAILY. DO NOT CUT, CRUSH, OR CHEW 180 Capsule 3 03/08/2024 Active Ozempic (1 MG/DOSE) 2 MG/1.5ML Subcutaneous Solution Pen-injector (Semaglutide (1 MG/DOSE)) Inject 1 mg under the skin once a week. Active Entresto 97-103 MG Oral Tablet (sacubitril-valsarta n 97-103 mg per tab) Take 1 Tablet [...] morning. Active Gabapentin 300 MG Oral Capsule (Neurontin)Indicatio ns:Diabetic polyneuropathy associated with type 1 diabetes mellitus (HCC) 900 mg in the morning and 1800 mg at bedtime 810 Capsule 3 04/27/2024 Active Omeprazole 20 MG Oral Capsule Delayed Release (PriLOSEC) Take 1 Capsule by mouth in the morning. 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 Increased risk for Hereditary Breast and Ovarian Cancer Syndrome. No diabetic retinopathy in either eye 05/05/2018 LBBB (left bundle branch block) 04/28/2018 H/O TIA (transient ischemic attack) and stroke 0 04/28/2018 Overview: 2004, on ASA and Plavix HTN, goal below 140/90 02/26/2016 Overview: Per HTN Protocol Type 1 diabetes mellitus wit h hemoglobin A1c goal of less than 8.0% 12/19/2014 Overview: ICD-10 update of inactive term GERD (gastroesophageal reflux disease) 3 Hyperlipidemia with target LDL less than 70 08/15 Overview: Per Lipid Taxonomy. Other allergic rhinitis 04/30/2004 Overview: ICD-10 update of inactive term Gastroparesis 07/22/2003 Carotid stenosis, non-symptomatic documented as of this encounter (statuses as of 07/14/2024) Resolved Problems Problem Noted Date Diagnosed Date [...] control in clinical research program 10/13/2012 02/16/2013 Overview: Diagnosis changed due to Research Module. Go to Snapshot for study details. Nausea 03/24/2012 10/26/2012 Overview: ICD-10 update of inactive term Acute sinusitis 05/28/2011 03/24/2012 Nausea with vomiting 11/22/2010 012 Dysuria 11/22/2010 03/24/2012 Acute sinusitis 09/12/2010 03/24/2012 Malaise and fatigue 03/27/2010 03/24/20 12 Routine medical exam 03/27/2010 012 Severe obesity with body mas s index (BMI) of 35.0 to 39.9 with serious comorbidity 02/26/2010 Overview: Per Obesity Protocol, #19 ICD-10 update of inactive diagnosis HTN, goal below 130/80 10/11/200903/24 Overview: Per HTN Taxonomy. Type 1 diabetes mellitus wit h hemoglobin A1c goal of less than 7.0% 06/29/2009 06/17/2011 Overview: Modified per Diabetes protocol #14. ICD-10 update of inactive term Type 1 diabetes mellitus wit h background retinopathy 09/01/2006 11/13/2018 Overview: [facility], left eye mild proliferative changes ADVANCE DIRECTIVE INFORMATION 10/14/2005 04/28/2018 Overview: No, Advance Directive brochure given to patient at prior appointment. GENERAL OSTEOARTHROSIS 05/30/200403/24 Asthma with severity to be determined 04/30/2004 03/27/2010 Overview: With infections ICD-10 update of inactive term Other osteoporosis without c urrent pathological fracture 10/31/2003 12/19/2014 Overview: ICD-10 update of inactive term DM type 1, not at goal 07/27/200306/29 Overview: Modified per Diabetes protocol #14. Uterine leiomyoma 07/22/2003 03/24/2012 Other specified glaucoma 07/22/200302/2015 Overview: No current treatment Exam every 4-5 mon Diabetic polyneuropathy 07/22/200312/2019 Overview: ICD-10 update of inactive term HTN, goal below 140/90 07/22/200310/11 Overview: Per HTN Taxonomy. PURE HYPERCHOLESTEROLEM 07/22/200308/15 Overview: Per Lipid Taxonomy. FX ANKLE NOS-CLOSED 07/16/2003 03/24/20 12 Esophagitis 03/24/2012 Overview: ICD-10 update of inactive term Edema 03/24/2012 Overview: uses lasix sparingly Type 1 diabetes mellitus wit h hemoglobin A1c goal of 7.0%-8.0% 12/19/2014 Overview: ICD-10 update of inactive term Breast cancer, BRCA2 positive 04/18/2020 documented as of this encounter (statuses as of 07/14/2024) Immunizations Name Administration Dates Next Due COVID-19 [...] the money to buy more. Never true 05/12/20 23 Within the past 12 months, t he food you bought just didn't last and you didn't have money to get more. Never true 05/12/2023 Sex and Gender Information Value Date Recorded Sex Assigned at Not on file Gender Identity Not on file Sexual Orientation Not on file Job Start Date Occupation Industry Not on file Not on file Not on file documented as of this encounter Plan of Treatment Upcoming Encounters Date Type Department Care Team (Late st Contact Info) Description 11/09/2024 8:50 AM EST Office Visit Family Medicine [address] [place] [phone] [address] [place] [address] Scheduled Procedures Name Priority Associated Diagnoses Date/Ti [...] exists Colorectal Cancer Screening 03/23/2029 Pneumococcal Vaccine: 65+ Years Completed 06/10/2019, 04/28/2018, 07/22/2007, Additional history exists Zoster Vaccines Completed 11/23/2019, 05/17, 04/15/2013 VITAMIN D LEVEL ONCE IN A LIFETIME-USE SMARTSET# [id number] Completed 01/22/2022, 04/18/2021, 10/25/2005 RETIRED - COLONOSCOPY-EVERY [...] Not on filedocumented as of this encounter Procedures Procedure Name Priority Date/Time Associated Diagnosis Comments RADIOLOGY SCANNED RESULT 07/13/2024 documented in this encounter Results * RADIOLOGY SCANNED RESULT (07/13/2024) 07/13/2024 No Physician Data Unknown DIAGNOSTIC RAD IOLOGY SERVICES documented in this encounter Care Teams Associate Professor Of Medicine Relationship Specialty Start Date End Date Valarie Woodard DO [address] [place] [address] [place] [address] PCP - General Internal Medicine 03/23/24 documented as of this encounter
--- OUTSIDE RECORDS SUMMARY | 2024-11-24 19:46 | External Medical Summary | Continuity of Care Document ---
Author Name Unknown Organization [facility] [address] Address [address] [place] [id number] Care Team Providers Care Cell Lead Name Role Phone Valarie Woodard Primary Care Physician [phone] [id number] Date(s): 07/05/24 - 07/05/[address] [facility] [address] [facility] [address] [place] [address] Encounter Diagnosis DM (diabetes mellitus), type 1(Discharge Diagnosis) - 07/05/24 Insulin pump status(Discharge Diagnosis) - 07/05/24 Discharge Disposition: Home or Self Care Attending Physician: WALLACE Herbert Amie Referring Physician: WALLACE Herbert Amie Allergies, Adverse Reactions, Alerts Substance Criticality Severity Reaction Reaction Severity Status lisinopril bronchitis Active Assessment and Plan Extracted from: Title:Office Visit Note Author:WALLACE Herbert Ami e Date:07/06/24 1.DM (diabetes mellitus), type 1 - Increase correction factor at 12PM to 30, 5PM to 30 and 7:30PM to 30. - Increase carb ratio at 12PM, 2:30PM, 5PM, 7:30PM and 9PM to 4.0. - Increase Ozempic to 2.0 mg weekly. - Download between visits as needed. - CBC, CMP, TSH and vitamin D level ordered. 2.Insulin pump status Follow up will be scheduled every 3 months for the year to meet medicare requirements. Medications aspirin 81 mg oral delayed release [...] Daily, Disp# 30 cap, Refills: 3, Pharmacy: [facility] Start Date: 01/09/22 Status: Ordered Cymbalta 20 mg oral delayed release capsule Start: 06/28/19 2:10:00 PM EDT, 2 cap, PO, Daily Start Date: 06/28/19 Status: Ordered Entresto 97 mg-103 mg oral tablet Start: 01/05/24 11:58:00 AM EDT, 1 tab, PO, bid, Disp# 180 tab, Refills: 3, Note to Pharmacy: emiliano smith, Pharmacy: [facility] Start Date: 01/05/24 Status: Ordered ezetimibe 10 mg oral tablet Start: 01/23/24 9:33:00 AM EDT, 1 tab, PO, Daily, Disp# 90 tab, Refills: 3, Pharmacy: [facility] Start Date: 01/23/24 Status: Ordered Farxiga 5 mg oral tablet Start: 07/06/24 11:50:00 AM EDT, 1 tab, PO, Daily, Disp# 90 tab, Pharmacy: [facility] Start Date: 07/06/24 Status: Ordered gabapentin 300 mg oral capsule [...] Daily, Disp# 150 mL, Refills: 3, [facility] Start Date: 04/19/24 Status: Ordered omeprazole 20 mg oral delayed release capsule Start: 08/12/16 11:04:00 AM EST, 1 cap, PO, Daily Start Date: 08/12/16 Status: Ordered Ozempic (2 mg dose) 8 mg/3 mL subQ pen Start: 07/05/24 11:40:00 AM EDT, 2 mg =, subQ, q7days, Disp# 9 mL, Refills: 3, Pharmacy: [facility] Start Date: 07/05/24 Status: Ordered Toprol-XL 25 mg oral tablet, extended release Start: 03/25/22 10:23:00 AM EDT, 1 tab, PO, qhs, Disp# 90 tab, Refills: 3, Pharmacy: [facility] Start Date: 03/25/22 Status: Ordered Vitamin B12 Start: 05/27/23 10:08:00 AM EDT, 1,000 mcg =, PO, Daily Start Date: 05/27/23 Status: Ordered Vitamin D3 5000 intl units oral tablet Start: 08/12/16 11:08:00 AM EST, 1 tab, PO, qAM Start Date: 08/12/16 Status: Ordered Mental Status 07/05/24 Barriers to Learning one year None evide nt Mandatory Health Literacy Documentation Yes Health Literacy Communication Barriers N ever Primary Language Brazilian Problem List Condition Confirmation Course Effective Dates [...] Service Informant Insulin pump status Discharge Diagnosis 07/05/24 Non-Specified DM (diabetes mellitus), type 1 Discharge Diagnosis 07/05/24 Non-Specified Procedures Procedure Date Related Diagnosis Body [...] hand 5several Results Laboratory List Name Date Hemoglobin A1C POC Outpt. 07/05/24 Most recent to oldest [Reference Range]: 1 Hgb A1C POC [4-6] 7.0 1 *HI* (07/05/24 11:06 AM) Hgb A1c POC Ref Range [4.0-6.0] (07/05/24 11:06 AM) 1Result Comment: Performed at: [facility], [address] [place] [address] Vital Signs Most recent to oldest [Reference Range]: 1 Patient Weight 91.8 kg (07/05/24 10:49 AM) Temperature [36.5-37.9 DegC] 35.9 DegC *LOW* (07/05/24 10:49 AM) Heart Rate 81 bpm (07/05/24 10:49 AM) Blood Pressure 110/63mmHg (07/05/24 10:49 AM) Cuff Pulse Pressure 47 mmHg (07/05/24 10:49 AM) BP Location # 1 Left Arm (07/05/24 10:49 AM) Social History Social History Type Response [...] Event Display: Endocrinology Outpt Note Authored Date: [id number] 07/05/24 Chief Complaint Type 1 diabetes follow up History of Present Illness Patient reports she has been more tired lately. We discussed possible causes with her multiple health issues. She did start a new medication with cardiology and she is scheduled to follow up with them this week and will discuss. We discussed checking labs including a CBC, CMP, TSH and vitamin D level. Her diabetes has been stable. Her POC A1c was 7.0%. She continues on the Tandem X2 pump with Dexcom G7 and control IQ. Her pump was downloaded and reviewed. This showed an average glucose of 170 with 63% time in range. She is also on Ozempic 1 mg weekly. She reports that has helped with her glucose levels and decrease her appetite but she has not lost weight. We discussed titrating the dose to2.0 mg weekly. She is tolerating well. We had tried to order Mounjaro previously but that was denied by her insurance. Based on her download there was a pattern of hypoglycemia following her boluses in the afternoon and evening often. She is more sensitive now on the Ozempic. We will increase her correction factor and carb ratios at those times. Physical Exam Vitals & Measurements T:35.9C HR:81(Monitored) BP:110/63 WT:91.8kg WT:91.800kg(Dosing) Alert and oriented, no acute distress Skin tone normal Breathing rate normal, non-labored respirations Mood appropriate Assessment/Plan 1.DM (diabetes mellitus), type 1 - Increase correction factor at 12PM to 30, 5PM to 30 and 7:30PM to 30. - Increase carb ratio at 12PM, 2:30PM, 5PM, 7:30PM and 9PM to 4.0. - Increase Ozempic to 2.0 mg weekly. - Download between visits as needed. - CBC, CMP, TSH and vitamin D level ordered. 2.Insulin pump status Follow up will be scheduled every 3 months for the year to meet medicare requirements. Attestation Face to face visit with patient lasted approximately 38 minutes with >50% spent in counseling, education [...] qAM cyanocobalamin(Vitamin B12), 1000 mcg, PO, Daily dapagliflozin(Farxiga 5 mg oral tablet), 5 mg= 1 tab, PO, Daily DULoxetine(Cymbalta 20 mg oral delayed [...] capsule), 20 mg= 1 cap, PO, Daily sacubitril-valsartan(Entresto 97 mg-103 mg oral tablet), 1 tab, PO, bid, 3 refills semaglutide(Ozempic (2 mg dose) 8 mg/3 mL subQ pen), 2 mg, subQ, q7days, 3 refills ubiquinone(CoQ10 300 mg oral capsule), 300 mg= 1 cap, PO, Daily, 3 refills Allergies lisinoprilbronchitis Lab Results 07/05/24 POC A1c 7.0% Electronic Signature on File CC: Valarie Woodard, [address] [facility] [id number] * Electronically Reviewed/Signed by: Nia Herbert PA-C Author Signature Dt/Tm:07/06/2024 03:00 PM Division of Endocrinology AP Patient Care team information Care Team Personnel Name: Cliff Aguilar Kimberly Position: Pharmacist BCMA Member Role: Pharmacy - Lifetime Address: [place] [phone] Name: MD Ivory Raymond J Position: Physician - Hem/Onc Member Role: Lifetime Relationship Address: [address] [facility] [place] [address] [place] Name: MD Ammon, Papo Position: Physician - Endocrinology Member Role: Lifetime [facility] [address] [facility] [address] [place] Name: DO Woodard Amanda Mae Position: Referring DIRECT Member Role: Primary Care Provider Address: [address] [place] [address] [place] Care Team Related Persons Name: EMILY CASTELAN Name: VIOLET CASTELAN Name: VIOLET CASTELAN
--- OUTSIDE RECORDS SUMMARY | 2024-11-24 19:46 | External Medical Summary | Summary of Care ---
Author Name Unknown Organization [facility] Address [address] [place] [address] Phone [phone] Care Team Providers Care Fringing Machine Operator Name Role Phone Valarie Woodard DO Primary Care Provider [phone] Reason for Visit * Reason Onset Date Comments Appointment 07/13/2024 Encounter Details Date Type Department Care Team (Late st Contact Info) Description 07/13/2024 Telephone Family Medicine [address] [phone] La Forrester PA-C [address] [place] [address] [place] [address] Appointment Allergies Active Allergy Reactions Criticality Noted Date Comments Lisinopril 10/22/2004 cough documented as of this encounter (statuses as of 07/13/2024) Medications Medication Sig Dispensed Refills Start Date End Date Status LANCETS MISCIndications:DM type 1, not at goal ([facility]) BD logic lancets 8x/day 720 4 05/14/2007 Active ONETOUCH ULTRA TEST STRPIndications:DM type 1, not at goal ([facility]) test 8-10 x/day 3 mos 3 04/27/2008 Active GLUCAGON EMERGENCY 1 MG IJ KITIndications:DM type 1, not at goal ([facility]) As directed 1 kit 11 12/08/2008 Active fluticasone (FLONASE) 50 MCG/ACT nasal sprayIndications:Acu te sinusitis Administer 2 Sprays into each nostril daily. 3 Bottle 1 04/02/2016 Active Glucose Blood (ARMANI CONTOUR NEXT TEST) STRPIndications:Type 1 diabetes mellitus with hemoglobin A1c goal of less than 8.0% ([facility]) Test blood sugars 8-10 times daily 300 [...] the skin every 6 months. Active nystatin 999590 UNIT/GM cream Apply topically to affected area [...] s:Type 1 diabetes mellitus with diabetic polyneuropathy ([facility]) TAKE 2 CAPSULES DAILY. 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 Increased risk for Hereditary Breast and Ovarian [...] as of this encounter (statuses as of 07/13/2024) Resolved Problems Problem Noted Date Diagnosed Date [...] wit h background retinopathy 09/01/2006 11/13/2018 Overview: [facility], left eye mild proliferative changes [...] Exam every 4-5 mon Diabetic polyneuropathy 07/22/2003 0812/2019 Overview: ICD-10 update of inactive term HTN, [...] as of this encounter (statuses as of 07/13/2024) Immunizations Name Administration Dates Next Due COVID-19 [...] on file documented as of this encounter Miscellaneous Notes * Telephone Encounter - Sonia Lopez RN - 07/13/2024 3:45 PM EDT I called patient to offer appt on , she is unable to come that day, made an appt for Kssphj84/1/24. She said she did go to Urgent care and had an xray(negative) If pain improves she will cancel the appt on Friday * Telephone Encounter - La Forrester PA-C - 07/13/2024 3:34 PM EDT Pt needs office visit * Telephone Encounter - La Forrester PA-C - 07/13/2024 3:34 PM EDT ----- Message from Sonia Lopez RN sent at 07/13/2024 3:12 PM EDT ----- ----- Message from Cornelia Aguilar RN sent at 07/13/2024 12:25 PM EDT ----- Patient requested a doppler be ordered for her lower leg today please. She is in pain. Please have nurse call with where she should go to get the doppler done to rule out a blood clot per patient Situation Lynn Melgar, is a 69 year old female c/o last Friday fell against step with leg. Left leg now very painful, which started yesterday . Background (relevant to the situation: PMH, meds, labs, tx tried) Wt Readings from Last 1 Encounters: 03/24/2492.5 kg (204 lb) Assessment (professional conclusion, VS) Left leg hit against steps Yesterday started with bad pain Had xray , nothing showed up at [facility] Diabetic /insulin diabetic Pain from knee to ankle Hurts to touch skin Recommendation/Request Office visit Patient asking for a doppler documented in this encounter Plan of Treatment Upcoming Encounters Date Type Department Care Team (Late st Contact Info) Description 07/16/2024 12:00 PM EDT Office [address] [place] [phone] Ofelia Hutchison MD [address] [place] [address] [place] [phone] 11/09/2024 8:50 AM EST Office Visit [address] [place] [phone] Valarie Woodard DO [address] [place] [address] [place] [phone] Scheduled Procedures Name Priority Associated Diagnoses Date/Ti [...] 03/11/2029 03/11/2019, 06/18/2017, 05/02/2008 Colonoscopy 03/23/2029 03/23/2024, 07/05/2024, 05/28/2018, Additional history exists Colorectal Cancer Screening 03/23/2029 Pneumococcal Vaccine: 65+ Years Completed 06/10/2019, 04/28/2018, 07/22/2007, Additional history exists Zoster Vaccines Completed 11/23/2019, 05/17, 04/15/2013 VITAMIN D LEVEL ONCE IN A LIFETIME-USE SMARTSET# [id number] Completed 01/22/2022, 04/18/2021, 10/25/2005 RETIRED - COLONOSCOPY-EVERY [...] Not on filedocumented as of this encounter Care Teams Fringing Machine Operator Relationship Specialty Start Date End Date Valarie Woodard DO [address] [place] [address] [place] [phone] PCP - General Internal Medicine 03/23/24 documented as of this encounter
--- OUTSIDE RECORDS SUMMARY | 2024-11-24 19:46 | External Medical Summary | Continuity of Care Document ---
Author Name Unknown Organization [address] Address [address] [place] [phone] Care Team Providers Care Lead Ramp Service Man Name Role Phone Valarie Woodard Primary Care Physician [phone] [id number] Date(s): 07/06/24 - 07/06/24 [facility] [address], [address] [place] [address] [phone] Encounter Diagnosis Palpitations(Discharge Diagnosis) - 07/06/24 Hyperlipidemia(Discharge Diagnosis) - 07/06/24 LBBB (left bundle branch block)(Discharge Diagnosis) - 07/06/24 Hypertension(Discharge Diagnosis) - 07/06/24 Discharge Disposition: Home or Self Care Attending Physician: DO Lopez Jason D Referring Physician: DO Lopez Jason D Allergies, Adverse Reactions, Alerts Substance Criticality Severity Reaction Reaction Severity Status lisinopril bronchitis Active Assessment and Plan Extracted from: Title:Cardiology Office Visit Note Author:DO Lopez Jason D Date:07/06/24 1.LBBB (left bundle branch block) 2.Hyperlipidemia 3.Hypertension 4.Palpitations She has a history of a nonischemic cardiomyopathy with mild left ventricular dysfunction. We do not really have an etiology as she never received radiation therapy nor Adriamycin that were aware of for her breast cancer. Although Herceptin would be a possibility it usually occurs while you are on therapy. I did discuss with her that she should be on an SGLT2 inhibitor given its cardiovascular benefit with regards to reducing heart failure admissions and heart failure and its renal protective effects. Given her already lightheadedness. Her hydrochlorothiazide and switch her over to low-dose Farxiga 5 mg daily. If she has ongoing lightheadedness and dizziness we can reduce her Entresto to the middle dose. This change may be more necessary in the future if she loses weight with Ozempic as her blood pressure will come down. She is known to have a left bundle branch block and denies any presyncope or syncope. She has had no significant palpitations. She is otherwise on appropriate heart failure regimen including Toprol-XL, Entresto and now Farxiga. We did discuss "pumping the brakes" before she gets up out of a chair or up out of bed to reduce any orthostatic lightheadedness. He is on Zetia for her lipids. Ideally her LDL should be less than 70 given her diabetes. If not and she does not have a significant intolerance to statins (not documented in the allergies) we could try pravastatin at a low dose 20 mg daily. She will see Stefani in 6 months. I will see her in a year. Medications aspirin 81 mg oral delayed [...] 180 tab, Refills: 3, Note to Pharmacy: fill luis, [facility] Start Date: 01/05/24 Status: Ordered ezetimibe 10 mg oral tablet Start: 01/23/24 9:33:00 AM EDT, 1 tab, PO, Daily, Disp# 90 tab, Refills: 3, Pharmacy: [facility] Start Date: 01/23/24 Status: Ordered Farxiga 5 mg oral tablet Start: 07/06/24 11:50:00 AM EDT, 1 tab, PO, Daily, Disp# 90 tab, Pharmacy: [facility] Start Date: 07/06/24 Status: Ordered gabapentin [...] 1, USE DIRECTED FOR SEVERE HYPOGLYCEMIA, Pharmacy: [facility] Start Date: 10/14/22 Status: Ordered insulin aspart 100 units/mL injectable solution Start: 04/19/24 6:33:00 PM EDT, 150 unit =, subQ, Daily, Disp# 150 mL, Refills: 3, Pharmacy: [facility] Start Date: 04/19/24 Status: Ordered omeprazole 20 mg oral delayed release capsule Start: 08/12/16 11:04:00 AM EST, 1 cap, PO, Daily Start Date: 08/12/16 Status: Ordered Ozempic (2 mg dose) 8 mg/3 mL subQ pen Start: 07/05/24 11:40:00 AM EDT, 2 mg =, subQ, q7days, Disp# 9 mL, Refills: 3, Pharmacy: [facility] Start Date: 07/05/24 Status: Ordered Toprol-XL 25 mg oral tablet, extended release Start: 03/25/22 10:23:00 AM EDT, 1 tab, PO, qhs, Disp# 90 tab, Refills: 3, Pharmacy: [facility] Start Date: 03/25/22 Status: Ordered Vitamin B12 Start: 05/27/23 10:08:00 AM EDT, 1,000 mcg =, PO, Daily Start Date: 05/27/23 Status: Ordered Vitamin D3 5000 intl units oral tablet Start: 08/12/16 11:08:00 AM EST, 1 tab, PO, qAM Start Date: 08/12/16 Status: Ordered Mental Status 07/06/24 Mandatory Health Literacy Documentation Yes Health Literacy Communication Barriers N ever Primary Language Greek Problem List Condition Confirmation Course Effective Dates [...] Diagnosis Diagnosis Type Effective Dates Health Status Clinical Service Informant Hyperlipidemia Discharge Diagnosis 07/06/24 LBBB (left bundle branch block) Discharge Diagnosis 07/06/24 Palpitations Discharge Diagnosis 07/06/24 Hypertension Discharge Diagnosis 07/06/24 Procedures Procedure Date Related Diagnosis Body Site [...] to oldest [Reference Range]: 1 Patient Weight 90 kg (07/06/24 11:37 AM) Heart Rate 65 bpm (07/06/24 11:37 AM) Blood Pressure 110/64mmHg (07/06/24 11:37 AM) BP Location # 1 Left Arm (07/06/24 11:37 AM) Social History Social History Type Response [...] Active [facility]kn own Cardiology Outpatient Note * DO Lopez Jason D: PERFORM Event Display: Cardiology Outpt Note Authored Date: [id number] Primary Care Provider DO Woodard Amanda Mae Referring Provider DO Lopez Jason D Chief Complaint 6 mon f/u LBBB NICM History of Present Illness She denies any chest pain or chest pressure. She notes that she has had increasing shortness of breath more bothersome starting in the summer. She is also having lightheadedness and dizziness with change in position. She denies any tucker syncope. She denies any significant lower extremity edema. She has not needed any loop diuretics but continues to take hydrochlorothiazide on a regular basis. She is unaware of any palpitations or fluttering or feeling her heart racing. She denies any orthopnea. She has had no falls. Her weight is down about 5 kg with the use of Ozempic. Review of Systems PMHX: 1. Left bundle-branch block, September 2017, new from September 2016. a. Cardiac catheterization with a 20% mid LAD lesion; 20% mid RCA lesion; 20% mid circumflex lesion and normal left ventricular and diastolic pressure 11/2017. 2. History of breast cancer status post bilateral mastectomy with reconstruction September 2016, receiving 4 cycles of docetaxel and cyclophosphamide. 3. No history of Adriamycin treatment or radiation treatment. 4. Total abdominal hysterectomy with a bilateral salpingo-oophorectomy 02/2017. 5. TIA in 2003. 6. Hyperlipidemia since the age of 43. 7. Hypertension since the age of 43. 8. Diabetes mellitus type 1 since the age of 21. 9.Echo 05/2023 - Low normal LV systolic function with mild global hypokinesis.(especially when compared to the RV). Abnormal septal motion consistent with left bundle branch block.EF52%. Mild mitral valve regurgitation.Mild tricuspid valve regurgitation. Physical Exam Vitals & Measurements HR:65(Monitored) BP:110/64 SpO2:96% WT:90kg WT:90.000kg(Dosing) Patient is awake alert and oriented x3and in no acute distress HEENT: 1+carotid upstrokes, no evidence of carotid bruits LUNGS:Clear to auscultation bilaterally no rales rhonchi or wheezing HEART:Regular rate and rhythmno appreciable murmurs rubs or gallops ABDOMEN:Soft nontender nondistended positive bowel sound EXTREMITIES:No evidence of clubbing cyanosis or edema PSYCHIATRIC:Patient's affect appeared appropriate Assessment/Plan 1.LBBB (left bundle branch block) 2.Hyperlipidemia 3.Hypertension 4.Palpitations She has a history of a nonischemic cardiomyopathy with mild left ventricular dysfunction. We do not really have an etiology as she never received radiation therapy nor Adriamycin that were aware offor her breast cancer. Although Herceptin would be a possibility it usually occurs while you are on therapy. I did discuss with her that she should be on an SGLT2 inhibitor given its cardiovascular benefit with regards to reducing heart failure admissions and heart failure and its renal protective effects. Given her already lightheadedness. Her hydrochlorothiazide and switch her over to low-dose Farxiga 5 mg daily. If she has ongoing lightheadedness and dizziness we can reduce her Entresto to the middle dose. This change may be more necessary in the future if she loses weight with Ozempic as her blood pressure will come down. She is known to have a left bundle branch block and denies any presyncope or syncope. She has had no significant palpitations. She is otherwise on appropriate heart failure regimen including Toprol-XL, Entresto and now Farxiga. We did discuss "pumping the brakes" before she gets up out of a chair or up out of bed to reduce any orthostatic lightheadedness. He is on Zetia for her lipids. Ideally her LDL should be less than 70 given her diabetes. If not and she does not have a significant intolerance to statins (not documented in the allergies) we could try pravastatin at a low dose 20 mg daily. She will see Stefani in 6 months. I will see her in a year. 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 [facility] [address], [address] [place] [address] JDF Patient Care team information Care Team Personnel Name: Cliff Aguilar Kimberly Position: Pharmacist BCMA Member Role: Pharmacy - Lifetime Address: [place] [address] [place] Name: MD Ivory Raymond J Position: Physician - Hem/Onc Member Role: Lifetime Relationship Address: [address] [place] [address] [place] Name: MD Ammon, Papo Position: Physician - Endocrinology Member Role: Lifetime Relationship Address: [address] [place] [address] [place] Name: DO Woodard Amanda Mae Position: Referring DIRECT Member Role: Primary Care Provider Address: [address] [place] [address] [place] Care Team Related Persons Name: EMILY CASTELAN Name: VIOLET CASTEALN Name: VIOLET CASTELAN
--- OUTSIDE RECORDS SUMMARY | 2024-11-24 19:46 | External Medical Summary | Continuity of Care Document ---
Author Name Unknown Organization [facility] [address] [id number] Care Team Providers Care Chef French Name Role Phone Valarie Woodard Primary Care Physician [phone] [id number] Date(s): 07/06/24 - 07/06/24 [facility] [address] [facility] [address] [facility], [facility] 1 [place], [place] [phone] Encounter Diagnosis Type 1 diabetes mellitus without complications(Final) - Age-related osteoporosis without current pathological fracture(Final) - Essential (primary) hypertension(Final) - Discharge Disposition: Home or Self Care [...] 3, Note to Pharmacy: fill luis, Pharmacy: [facility] Start Date: 01/05/24 Status: Ordered ezetimibe 10 mg oral tablet Start: 01/23/24 9:33:00 AM EDT, 1 tab, PO, Daily, Disp# 90 tab, Refills: 3, Pharmacy: [facility] Start Date: 01/23/24 Status: Ordered Farxiga 5 mg oral tablet Start: 07/06/24 11:50:00 AM EDT, 1 tab, PO, Daily, Disp# 90 tab, Pharmacy: [facility] Start Date: 07/06/24 Status: Ordered gabapentin [...] DIRECTED FOR SEVERE HYPOGLYCEMIA, Pharmacy: [facility] Start Date: 10/14/22 Status: Ordered insulin [...] Refills: 3, [facility] Start Date: 07/05/24 Status: Ordered Toprol-XL [...] Complete Blood Count w Differential (CBC ,DIFFH) 07/06/24 Comprehensive Metabolic Panel (COMP META B PANEL) 07/06/24 T4, Free (T4, FREE) 07/06/24 Thyroid Stimulating Hormone (TSH) Vitamin D, 25-Hydroxy Level, Total (25-H YDROXY VITAMIN D) 07/06/24 Most recent to oldest [Reference Range]: 1 eGFR CKD-EPI [>60 mL/min/1.73 m2] 86 mL/ min/1.73 m2 1 (07/06/24 12:05 PM) Vitamin D, 25-Hydroxy [30-100 ng/mL] 51 ng/mL 2 (07/06/24 12:05 PM) Estimated CrCl 74.52 mL/min (07/06/24 12:54 PM) MPV [9.0-12.2 fL] 12.0 fL (07/06/24 12:05 PM) Immature Gran% 0.6 % (07/06/24 12:05 PM) Neut% 59.0 % (07/06/24:05 PM) Lymph% 26.7 % (07/06/24 12:05 PM) Johnston% 9.0 % (07/06/24 12:05 PM) Baso% 0.8 % (07/06/24:05 PM) Eos% 3.9 % (07/06/24:05 PM) Immat Gran, Abs [0-0.4 K/uL] 0.04 K/uL (07/06/24: PM) Neut, Abs [2.0-7.7 K/uL] 3.79 K/uL (07/06/24:05 PM) Lymph, Abs [1.0-3.4 K/uL] 1.72 K/uL (07/06/24 12:05 PM) Johnston, Abs [0-1.0 K/uL] 0.58 K/uL (07/06/24:05 PM) Baso, Abs [0-0.1 K/uL] 0.05 K/uL (07/06/24 12:05 PM) Eos, Abs [0-0.5 K/uL] 0.25 K/uL (07/06/24:05 PM) Type of Diff: AUTO *Unknown* (07/06/24 PM) RDW [11.5-14.2 %] 12.4 % (07/06/24:05 PM) Anion Gap [5-14 mmol/L] 6 mmol/L (07/06/2405 PM) Alb [3.5-5.0 g/dL] 4.3 g/dL (07/06/24:05 PM) Alk Phos [38-126 unit/L] 47 unit/L (07/06/2405 PM) ALT [<35 unit/L] 18 unit/L (07/06/2405 PM) AST [15-46 unit/L] 23 unit/L (07/06/2405 PM) BUN [7-20 mg/dL] 14 mg/dL (07/06/2405 PM) Ca [8.4-10.2 mg/dL] 8.9 mg/dL (07/06/24 PM) Cl- [96-107 mmol/L] 105 mmol/L (07/06/24 PM) HCO3 [22-30 mmol/L] 28 mmol/L (07/06/2405 PM) Cret [0.60-1.00 mg/dL] 0.74 mg/dL (07/06/24 PM) Glu [74-106 mg/dL] 140 mg/dL *HI* (07/06/24 PM) Hct [35-44 %] 44.6 % *HI* (07/06/24) Hgb [11.7-15.0 g/dL] 15.0 g/dL (07/06/24 PM) K [3.5-5.1 mmol/L] 4.1 mmol/L (07/06/24 PM) MCH [28-33 pg] 32.1 pg (07/06/24 PM) MCHC [32-36 g/dL] 33.6 g/dL (07/06/24 PM) MCV [81-96 fL] 95.3 fL (07/06/24 PM) Na [137-145 mmol/L] 139 mmol/L (07/06/24 PM) Plts [150-350 K/uL] 256 K/uL (07/06/24 PM) RBC [3.90-5.00 M/uL] 4.68 M/uL (07/06/2405 PM) Free T4 [0.70-1.48 ng/dL] 0.97 ng/dL 3 (07/06/24 PM) T Bili [0.2-1.3 mg/dL] 1.4 mg/dL *HI* (10/22/24 12:05 PM) Prot [6.3-8.2 g/dL] 7.2 g/dL (07/06/24 12:05 PM) TSH [0.47-4.68 uIU/mL] 1.27 uIU/mL 4 (07/06/24 12:05 PM) WBC [4.0-10.4 K/uL] 6.43 K/uL (07/06/24 12:05 PM) 1Result Comment: Testing Performed By: Dept of Pathology [facility], [address] [place] [address], [place] [address] 2Result Comment: Deficiency: <20 ng/mL Insufficiency: 21-29 ng/mL Sufficiency: 30-100 ng/mL Potenial Toxicity: >150 ng/mL 3Result Comment: Testing Performed By: Dept of Pathology [facility], [address] [place] [address], [place] [address] 4Result Comment: Testing Performed By: Dept of Pathology [facility], [address] [place] [address] Social History Social History Type Response Smoking [...] BCMA Member Role: Pharmacy - Lifetime Address: [address] [address] [place] Name: MD Ivory Raymond J Position: Physician - Hem/Onc Member Role: Lifetime Relationship Address: [address] [place] [address] [place] Name: MD Ammon, Papo Position: Physician - Endocrinology Member Role: Lifetime Relationship Address: [address] [place] [address] [place] Name: DO Woodard Amanda Mae Position: Referring DIRECT Member Role: Primary Care Provider Address: [address] [place] [address] [place] Care Team Related Persons Name: EMILY CASTELAN Name: VIOLET CASTELAN Name: VIOLET CASTELAN
--- OUTSIDE RECORDS SUMMARY | 2024-11-24 19:46 | External Medical Summary | Continuity of Care Document ---
Author Name Unknown Organization [address] Address [address] [place] [phone] Care Team Providers Care Cable Television Installer Name Role Phone Valarie Woodard Primary Care Physician [phone] [id number] Date(s): 08/20/24 - 08/20/24 [place] [address] [place] [address] [phone] Encounter Diagnosis Syncope and collapse(Final) - LBBB (left bundle branch block)(Discharge Diagnosis) - 08/20/24 Discharge Disposition: Home or Self Care Attending [...] bid, Disp# 60 tab, Refills: 3, Pharmacy: [facility] Start Date: 08/20/24 Status: Ordered ezetimibe 10 mg oral tablet Start: 01/23/24 9:33:00 AM EDT, 1 tab, PO, Daily, Disp# 90 tab, Refills: 3, Pharmacy: [facility] Start Date: 01/23/24 Status: Ordered [...] [facility] Start [facility]: 07/05/24 Status: Ordered rosuvastatin 40 mg oral tablet Start: 07/20/24 9:51:00 AM EST, 1 tab, PO, qhs, Disp# 90 tab, Refills: 3, Pharmacy: [facility] Start Date: 07/20/24 Status: Ordered Toprol-XL [...] Dates Health Status Cl inical Service Informant LBBB (left bundle branch block) Discharge Diagnosis 08/20/24 Non-Specified Procedures Procedure Date Related Diagnosis Body [...] hand 5several Results Laboratory List Name Date Comprehensive Metabolic Panel (COMP META B PANEL) 08/20/24 Magnesium Level (MAGNESIUM) 08/20/24 Most recent to oldest [Reference Range]: 1 eGFR CKD-EPI [>60 mL/min/1.73 m2] 31 mL/ min/1.73 m2 1 *LOW* (08/20/24 10:40 AM) Estimated CrCl 31.33 mL/min (08/20/24 11:05 AM) Anion Gap [5-14 mmol/L] 13 mmol/L (08/20/24 10:40 AM) Alb [3.5-5.0 g/dL] 4.2 g/dL (08/20/24 10:40 AM) Alk Phos [38-126 unit/L] 48 unit/L (08/20/24 10:40 AM) ALT [<35 unit/L] 18 unit/L (08/20/24 10:40 AM) AST [15-46 unit/L] 24 unit/L (08/20/24 10:40 AM) BUN [7-20 mg/dL] 25 mg/dL *HI* (08/20/24 10:40 AM) Ca [8.4-10.2 mg/dL] 10.1 mg/dL (08/20/24 10:40 AM) Cl- [96-107 mmol/L] 102 mmol/L (08/20/24 10:40 AM) HCO3 [22-30 mmol/L] 25 mmol/L (08/20/24 10:40 AM) Cret [0.60-1.00 mg/dL] 1.76 mg/dL *HI* (08/20/24 10:40 AM) Glu [74-106 mg/dL] 92 mg/dL (08/20/24 10:40 AM) K [3.5-5.1 mmol/L] 3.4 mmol/L *LOW* (08/20/24 10:40 AM) Mg [1.6-2.3 mg/dL] 2.2 mg/dL 2 (08/20/24 10:40 AM) Na [137-145 mmol/L] 140 mmol/L (08/20/24 10:40 AM) T Bili [0.2-1.3 mg/dL] 1.1 mg/dL (08/20/24 10:40 AM) Prot [6.3-8.2 g/dL] 7.3 g/dL (08/20/24 10:40 AM) 1Result Comment: Testing Performed By: Dept of Pathology [facility] [address], [address], [place] [address] 2Result Comment: Testing Performed By: Dept of Pathology [facility] [address], [address], [place] [address] Social History Social History Type Response Smoking [...] BCMA Member Role: Pharmacy - Lifetime Address: [place] [address] [place] Name: MD Cachorro, Raphael Chen Position: Physician - Hem/Onc Member Role: Lifetime Relationship Address: [address] [place] [address] [place] Name: MD Ammon, Papo Position: Physician - Endocrinology Member Role: Lifetime Relationship Address: [address] [place] [address] [place] Name: DO Woodard Amanda Mae Position: Referring DIRECT Member Role: Primary Care Provider Address: [address] [place] [address] Care Team Related Persons Name: EMILY CASTELAN Name: VIOLET CASTELAN Name: VIOLET CASTELAN
--- OUTSIDE RECORDS SUMMARY | 2024-11-24 19:46 | External Medical Summary | Continuity of Care Document ---
Author Name Unknown Organization [address] Address [address] [place] [phone] Care Team Providers Care High Man Name Role Phone Valarie Woodard Primary Care Physician [phone] [id number] Date(s): 08/20/24 - 08/20/24 [facility] [address], [address] [place] [address] [phone] Encounter Diagnosis Hypertension(Discharge Diagnosis) - 08/20/24 LBBB (left bundle branch block)(Discharge Diagnosis) - 08/20/24 Hyperlipidemia(Discharge Diagnosis) - 08/20/24 Discharge Disposition: Home or Self Care Attending Physician: DO Lopez Jason D Referring Physician: DO Lopez Jason D Allergies, Adverse Reactions, Alerts Substance Criticality Severity Reaction Reaction Severity Status lisinopril bronchitis Active Assessment and Plan Extracted from: Title:Cardiology Office Visit Note Author:DO Lopez Jason D Date:08/20/24 1.Hyperlipidemia 2.Hypertension 3.LBBB (left bundle branch block) 4. Orthostatic hypotension 5. Acute kidney injury secondary to low blood pressure and dehydration I think we have dried her out excessively due to a combination of GLP-1 agonist and SGLT2 inhibitor and aggressive guideline directed medical therapy for her cardiomyopathy. I made the following recommendations: 1. Stop her Farxiga 2. Reduce her Entresto to medium dose with the understanding we may need to reduce it to low-dose with her ongoing weight loss. 3. I encouraged her to increase her fluid consumption. 4. Asked her to reach out to endocrinology as it also sounds like she is having worsening hypoglycemia with her ongoing weight loss related to her Ozempic. 5. We recommended in the event recorder just to make sure she is not having high degree AV block with her left bundle branch block as a cause for her episodes. My gut suggests it is all related to blood pressure and dehydration. She will be BMP next week to make sure her renal functions improving. She will see Stefani nurse practitioner in a month. If she is still feeling weak and like a wet noodle at home we will reduce her Entresto to low-dose. Medications aspirin 81 mg oral delayed release [...] Daily, Disp# 30 cap, Refills: 3, Pharmacy: [facility] Start Date: 01/09/22 Status: [...] Daily, Disp# 90 tab, Refills: 3, Pharmacy: [facility] Start Date: 01/23/24 Status: Ordered gabapentin [...] 1, USE DIRECTED FOR SEVERE HYPOGLYCEMIA, Pharmacy: [facility] Start Date: 10/14/22 Status: Ordered insulin aspart 100 units/mL injectable solution Start: 04/19/24 6:33:00 PM EDT, 150 unit =, subQ, Daily, Disp# 150 mL, Refills: 3, Pharmacy: [facility] Start Date: 04/19/24 Status: Ordered omeprazole 20 mg oral delayed release capsule Start: 08/12/16 11:04:00 AM EST, 1 cap, PO, Daily Start Date: 08/12/16 Status: Ordered Ozempic (2 mg dose) 8 mg/3 mL subQ pen Start: 07/05/24 11:40:00 AM EDT, 2 mg =, subQ, q7days, Disp# 9 mL, Refills: 3, Pharmacy: [facility] Start Date: 07/05/24 Status: Ordered rosuvastatin 40 mg oral tablet Start: 07/20/24 9:51:00 AM EST, 1 tab, PO, qhs, Disp# 90 tab, Refills: 3, Pharmacy: [facility] Start Date: 07/20/24 Status: Ordered Toprol-XL 25 mg oral tablet, extended release Start: 03/25/22 10:23:00 AM EDT, 1 tab, PO, qhs, Disp# 90 tab, Refills: 3, Pharmacy: [facility] Start Date: 03/25/22 Status: [...] Effective Dates Health Status Clinical Service Informant Hypertension Discharge Diagnosis 08/20/24 LBBB (left bundle branch block) Discharge Diagnosis 08/20/24 Hyperlipidemia Discharge Diagnosis 08/20/24 Procedures Procedure Date Related Diagnosis Body Site [...] Most recent to oldest [Reference Range]: 1 2 3 Patient Weight 85 kg (08/20/24 11:36 AM) Heart Rate 87 bpm (08/20/24 11:43 AM) 87 bpm (08/20/24 11:42 AM) 84 bpm (08/20/24 11:36 AM) Blood Pressure 90/56mmHg (08/20/24 11:43 AM) 102/60mmHg (08/20/24 11:42 AM) 92/60mmHg (08/20/24 11:36 AM) BP Location # 1 Right Arm, Other: standing (08/20/24 11:43 AM) Right Arm, Other: sitting (08/20/24 11:42 AM) Right Arm, Other: (08/20/24 11:36 AM) Social History Social History Type Response [...] Event Display: Cardiology Outpt Note Authored Date: [id number] Primary Care Provider DO Woodard Amanda Mae Referring Provider DO Lopez Jason D Chief Complaint weakness, near syncope History of Present Illness She has had a number of episodes where she feels weak and tired and is almost had presyncope. Shehas had 2 episodes where she has had a sort of slowly lay herself down into a seated position secondary to dizziness. Denies any palpitations or fluttering with this. She has no chest pain or chest pressure. She is on Ozempic and has lost another 5 kg in the last 6 weeks. When she was last here we put her on an SGLT2 inhibitor. We sent her for blood work prior to the visit and she looks excessively prerenal. She denies any tucker syncope. She has had complete consciousness with these episodes she does describe tunnel vision at points. She denies feeling her heart racing with these episodes. With normal activity she has no chest pain or chest pressure. Today in the office with orthostatic blood pressure she did drop her blood pressure into the 90s with standing. Review of Systems PMHX: 1. Left bundle-branch [...] valve regurgitation. Physical Exam Vitals & Measurements HR:87(Monitored) BP:90/56 SpO2:94% WT:85kg WT:85.000kg(Dosing) Patient is awake alert and oriented x3and in no acute distress HEENT: 1+carotid upstrokes, no evidence of carotid bruits LUNGS:Clear to auscultation bilaterally no rales rhonchi or wheezing HEART:Regular rate and rhythmno appreciable murmurs rubs or gallops ABDOMEN:Soft nontender nondistended positive bowel sound EXTREMITIES:No evidence of clubbing cyanosis or edema PSYCHIATRIC:Patient's affect appeared appropriate Diagnostic Results 30 Day Labs Last Updated 08/20/24 11:05 08/20/24 1105 Estimated CrCl31.33 08/20/24 1040 Anion Gap13 BUN25H Ca10.1 Cl-102 JGF965 Cret1.76H Glu92 K3.4L Mg2.2 Na140 eGFR CKD-EPI31L Alk Phos48 ALT18 AST24 T Bili1.1 Alb4.2 Prot7.3 Assessment/Plan 1.Hyperlipidemia 2.Hypertension 3.LBBB (left bundle branch block) 4. Orthostatic hypotension 5. Acute kidney injury secondary to low blood pressure and dehydration I think we have dried her out excessively due to a combination of GLP-1 agonist and SGLT2 inhibitorand aggressive guideline directed medical therapy for her cardiomyopathy. I made the following recommendations: 1. Stop her Farxiga 2. Reduce her Entresto to medium dose with the understanding we may need to reduce it to low-dosewith her ongoing weight loss. 3. I encouraged her to increase her fluid consumption. 4. Asked her to reach out to endocrinology as it also sounds like she is having worsening hypoglycemia with her ongoing weight loss related to her Ozempic. 5. We recommended in the event recorder just to make sure she is not having high degree AV block with her left bundle branch block as a cause for her episodes. My gut suggests it is all related to blood pressure and dehydration. She will be BMP next week to make sure her renal functions improving. She will see Stefani nursepractitioner in a month. If she is still feeling weak and like a wet noodle at home we will reduce her Entresto to low-dose. Problem List/Past Medical History Ongoing Acquired absence [...] Signature on File CC: Valarie Woodard DO [address] [place] [phone] * Electronically Reviewed/Signed by: Troy Lopez DO Author Signature Dt/Tm:08/20/2024 12:22 PM Global Category Managerseed sorter [facility] [place] [address], [address] [place] [address] JDF Patient Care team information Care Team Personnel Name: Cliff Aguilar Kimberly Position: Pharmacist BCMA Member Role: Pharmacy - Lifetime Address: [address] [address] [place] Name: MD Cachorro, Raphael Chen Position: Physician - Hem/Onc Member Role: Lifetime Relationship Address: [address] [place] [phone] [place] Name: MD Ammon, Papo Position: Physician - Endocrinology Member Role: Lifetime Relationship Address: [address] [place] [phone] [place] Name: DO Woodard Amanda Mae Position: Referring DIRECT Member Role: Primary Care Provider Address: [address] [place] [address] [place] Care Team Related Persons Name: EMILY CASTELAN Name: VIOLET CASTELAN Name: VIOLET CASTELAN"
--- NOTE | 2024-11-24 20:49 | History & Physical Report ---
Date of Service November 24, 2024 Assessment & Plan (1) DKA (diabetic ketoacidosis): Plan: -as evidenced by elevated glucose, pH of 7.14, elevated AG -moderate DKA given elevated creatinine Plan: -DKA protocol, insulin drip started -hold home insulin, ozembic medications -repelete electrolytes prn -fluids per pharmacy, switched to NS for now given hyperglycemia -closely monitor electrolytes -appreciate pharmacy and museum educator consults (2) ZAC (acute kidney injury): Plan: -likely prerenal in setting of fluid depletion Plan: -trend with fluid replenishment -if unimproved in AM, check FeNa, renal US (3) Nausea & vomiting: Plan: -likely 2/2 viral illness -consideration for norovirus -made worse by DKA (4) Hypertension: Plan: -given DKA hold home meds (5) Neuropathic pain: Plan: -continue home gabapentin and duloxetine Plan Feeding/fluids: NPO Analgesia: gabapentin, tylenol Sedation: na Thromboprophylaxis: heparin Head up position: na Ulcer prophylaxis: na Glycemic control: insulin drip Spontaneous breathing trial: na Bowel care: diarrhea Indwelling catheter removal: na Deescalation of antibiotics: na I spent a total of 90 minutes in direct patient care, including [id number] time with the patient and/or family, reviewing medical records, ordering and reviewing diagnostic tests, and coordinating care with other healthcare providers. This time includes: history taking, physical examination, medical decision making, counseling, ECG interpretation, imaging interpretation, lab interpretation, orders, and education, excluding time spent in the performance of separately billed services. Admission and Anticipated Discharge Date Admission Date: November 24, 2024 History of Present Illness Chief Complaint: -nausea, vomiting, muscle aches Primary Care Provider: Valarie Woodard, 69 yo female with pmhx of breast cancer (s/p bilateral masectomy c/b chemotherapy induced neuropathy), HFpEF (EF 52%), DM Type 2 (on insulin pump), HTN, hx of TIA who presents for nausea, vomiting, and muscle aches since Friday. She states this has never happened before. She states she developed a cough, inability to tolerate any food, and just felt generally unwell. States she keeps close control of her diabetes, tried giving additional insulin at home without success. She utilizes a pump and has not had issues with this before. Also has been having some diarrhea. Denies tobacco, alcohol, and drug use. Would like to be full code a this time. Allergies Allergy/AdvReac Type Severity Reaction Status Date / Time lisinopril Allergy Mild Unknown Unverified 11/24/24 15:13 Home Medications Medication Instructions Recorded Confirmed Type amlodipine 2.5 mg tablet 2.5 mg PO QAM 01/17/19 11/24/24 History aspirin 81 mg tablet,delayed 81 mg PO QAM 01/17/19 11/24/24 History release (Jose L Low Dose Aspirin) cholecalciferol (vitamin D3) 125 5,000 unit PO QAM 01/17/19 11/24/24 History mcg (5,000 unit) tablet (Vitamin D3) cinnamon bark 500 mg capsule 500 mg PO QAM 01/17/19 11/24/24 History (Cinnamon) vitamin B complex 1 tab PO QAM 01/17/19 11/24/24 History duloxetine 20 mg capsule,delayed 40 mg PO QAM 11/24/24 11/24/24 History release ezetimibe 10 mg tablet 10 mg PO QAM 11/24/24 11/24/24 History gabapentin 300 mg capsule 1,800 mg PO QPM 11/24/24 11/24/24 History gabapentin 300 mg capsule 900 mg PO QAM 11/24/24 11/24/24 History insulin aspart U-100 100 unit/mL See Rx Instructions .Route .COMPLEX 11/24/24 11/24/24 History subcutaneous solution (Novolog U-100 Insulin aspart) semaglutide 2 mg/dose (8 mg/3 mL) 2 mg subcut WK 11/24/24 11/24/24 History subcutaneous pen injector (Ozempic) Past Med/Surg History Problem List (Updated 11/24/24 @ 20:57 by Aaron Calixto MD) Neuropathic pain ZAC (acute kidney injury) Nausea & vomiting (Acute) DKA (diabetic ketoacidosis) (Acute) Radial head fracture Diabetes (Chronic) Hypertension (Chronic) Anemia (Acute) Breast pain (Acute) Acute sinusitis Neutropenia Family History Other Family history non-contributory Social History Smoking Status: Never smoker Second Hand Exposure: No; Do You Dip or Chew Tobacco: No; Tobacco Cessation Education Requested by Patient: No Hx Alcohol Use: No Hx Substance Use: No Preferred Language: Estonian Communication Ability: Effective Change Consultant Required: No Beliefs That Will Affect Care: None Current Living Situation: Spouse Other Information That Helps Us Care for You: No Feels Safe at Home: Yes Safety Concerns: Feels Safe At This Time Review of Systems Review of Systems: CONSTITUTIONAL: chills, muscle aches. EYES: Patient denies any visual symptoms. EARS, NOSE, AND THROAT: No difficulties with hearing. No symptoms of rhinitis or sore throat. CARDIOVASCULAR: Patient denies chest pains, palpitations, orthopnea and paroxysmal nocturnal dyspnea. RESPIRATORY: cough GI: nausea, vomiting, diarrhea : No urinary hesitancy or dribbling. No nocturia or urinary frequency. No abnormal urethral discharge. MUSCULOSKELETAL: No myalgias or arthralgias. NEUROLOGIC: No chronic headaches, no seizures. Patient denies numbness, tingling or weakness. PSYCHIATRIC: Patient denies problems with mood disturbance. No problems with anxiety. ENDOCRINE: No excessive urination or excessive thirst. DERMATOLOGIC: Patient denies any rashes or skin changes. Physical Exam Physical Exam: Gen: A&O 3 NAD HEENT: NCAT, EOMI, not icteric. External ears normal. No rhinorrhea. Moist mucous membranes. Neck: Supple, full range of motion, no observable masses, No meningeal sign. Lungs: No Respiratory distress. cough noted CV: RRR, no edema. Abdomen: Soft, nondistended, No rebound tenderness. MSK: No joint swelling, no redness. Skin: No rashes, petechiae, lesions. Normal color per patient. Neuro: Normal Gait, Grossly intact. Psych: Appropriate for situation. Results & Data Results & Data Vital Signs (Past 12 Hours) Vital Signs Temp Pulse Pulse Resp BP BP Pulse Ox 11/24/24 19:15 37.1 C 105 H 18 124/73 98 11/24/24 18:35 36.7 C 103 H 20 129/73 98 11/24/24 18:00 36.7 C 103 H 20 129/73 98 11/24/24 17:44 119 H 20 119/97 97 11/24/24 16:33 115 H 20 147/59 H 95 11/24/24 15:00 113 H 20 164/78 H 98 11/24/24 13:20 107 H 18 98 11/24/24 12:30 36.4 C L 111 H 18 182/82 H 98 O2 Del Method 11/24/24 19:15 Room Air 11/24/24 18:35 Room Air 11/24/24 18:00 Room Air 11/24/24 17:44 Room Air 11/24/24 16:33 Room Air 11/24/24 15:00 Room Air 11/24/24 13:20 Room Air 11/24/24 12:30 Room Air Laboratory Results -personally reviewed, VBG and AG suggestive of moderate diabetic ketoacidosis, ZAC noted likely in setting of prerenal etiology Diagnostic Findings Chest X-Ray 11/24/24 14:32 XR chest 1V portable CLINICAL HISTORY: DKA COMPARISON STUDY: 01/17/2019 FINDINGS: Single view chest is unchanged. There is no airspace opacity or pleural effusion. The heart and pulmonary vascularity are unremarkable. There is no pneumothorax. IMPRESSION: Stable exam; no acute process ACT 112: Negative or not required by law. Electronically signed by: Jyoti Gilliam M.D. 11/24/2024 2:54 PM Medications Administered Insulin Human Regular 250 (units/ Sodium Chloride) 250 mls @ 10.4 mls/hr IV .Q24H KERI; Protocol Stop: 12/24/24 14:44 Last Titration: 11/24/24 20:27 Dose: 10.4 unit/hr, 10.4 mls/hr Documented By: AREN Co-signed By: LMP Titration: 11/24/24 19:18 Dose: 13 unit/hr, 13 mls/hr Documented By: AADennis Co-signed By: KRT Titration: 11/24/24 18:21 Dose: 10.8 unit/hr, 10.8 mls/hr Documented By: AADennis Co-signed By: BT Titration: 11/24/24 17:45 Dose: 9 unit/hr, 9 mls/hr Documented By: BABATUNDE Co-signed By: Admin: 11/24/24 15:34 Dose: 7.5 unit/hr, 7.5 mls/hr Documented By: BABATUNDE Co-signed By: GUI Insulin Aspart (Insulin Aspart Per Unit Charge) 0 units SC ACHS KERI Stop: 12/24/24 16:29 Last Admin: 11/24/24 18:14 Dose: Not Given Documented By: GUILLERMINA Co-signed By: QUIN Code Status & VTE Plan Code Status -full code, discussed with patient VTE Prophylaxis Plan VTE Prophylaxis will be ordered: No (1) DKA (diabetic ketoacidosis) Diabetes mellitus complication detail: without coma Diabetes mellitus type: type 1 Qualified Code(s): E10.10 - Type 1 diabetes mellitus with ketoacidosis without coma (3) Nausea & vomiting Vomiting type: unspecified Qualified Code(s): R11.2 - Nausea with vomiting, unspecified (4) Hypertension Hypertension type: primary hypertension Qualified Code(s): I10 - Essential (primary) hypertension
[2024-11-24] MEDS: D5W AND 1/2NSS + 20MEQ KCL 20 MEQ/1,000 ML BAG IV SCH (21:18)
[2024-11-24] MEDS: HEPARIN SOD 5,000 UNIT/0.5 ML VIAL SQ SCH (22:36)
[2024-11-24] MEDS: ONDANSETRON INJ 2 MG/ML 2 ML VIAL IV PRN (22:36)
[2024-11-24 23:42] LABS: Anion Gap 9 (3-11); BUN Creatinine Ratio 25.9 (10-20); Blood Urea Nitrogen 35 mg/dl (6-23); Carbon Dioxide 19 mmol/L (21-32); Chloride 108 mmol/L (98-107); Creatinine Clr Calc Pharmacy 36.9 ml/min; Glucose 175 mg/dl (70-99(Fasting)); Sodium 136 mmol/L (136-145); Troponin I High Sensitivity 11.1 pg/ml (0-14)
[2024-11-25 03:31] LABS: BUN Creatinine Ratio 24.8 (10-20); Calcium 8.2 mg/dl (8.6-10.3); Creatinine Clr Calc Pharmacy 38.6 ml/min; Magnesium 1.9 mg/dl (1.7-2.4); Phosphorus 2.4 mg/dl (2.5-4.9); Potassium 3.6 mmol/L (3.5-5.1)
[2024-11-25] MEDS: SODIUM CHLORIDE 0.9% 1,000 ML IV SCH (04:48)
[2024-11-25] MEDS: PENDING D5 1/2NS+20mEq KCL IVF SCH (04:48)
--- NOTE | 2024-11-25 06:25 | Electrocardiogram Report ---
Test Reason : Blood Pressure : */* mmHG Vent. Rate : 107 BPM Atrial Rate : 107 BPM P-R Int : 140 ms QRS Dur : 132 ms QT Int : 394 ms P-R-T Axes : 75 0 125 degrees QTcB Int : 525 ms Sinus tachycardia Left bundle branch block Abnormal ECG When compared with ECG of 17-Jan-2019 19:08, Left bundle branch block is now Present Confirmed by James Reyes ([id number]) on 11/25/2024 6:25:08 AM Referred By: Confirmed By: James Reyes
[2024-11-25 07:05] LABS: BUN Creatinine Ratio 24.6 (10-20); Calcium 8.1 mg/dl (8.6-10.3); Creatinine Clr Calc Pharmacy 38.4 ml/min; Magnesium 1.9 mg/dl (1.7-2.4); Phosphorus 2.5 mg/dl (2.5-4.9); Potassium 3.7 mmol/L (3.5-5.1)
[2024-11-25] MEDS: DKA GOAL RANGE 150-250 mg/dl ONE (07:10)
[2024-11-25] MEDS ORDERED: PALONOSETRON 0.25 MG in SYRINGE 0 ML IV SCH (09:00)
[2024-11-25] MEDS ORDERED: GABAPENTIN 300 MG CAP PO SCH (09:00)
[2024-11-25 09:54] LABS: Estimated Average Glucose 146 mg/dl; Hemoglobin A1C 6.7 % (4.5-5.6)
[2024-11-25] MEDS: LANTUS PER UNIT CHARGE SQ ONE (09:55)
[2024-11-25] MEDS ORDERED: GLUCAGON FOR INJ 1 MG VIAL SQ PRN (10:00)
[2024-11-25] MEDS ORDERED: GLUCOSE 10 TAB/TUBE PO PRN (10:00)
[2024-11-25] MEDS ORDERED: GLUCOSE 40% GEL 15 GM TUBE PO PRN (10:00)
--- NOTE | 2024-11-25 10:39 | Pharmacy Report ---
Pharmacy Glycemic Short Note 2 - Date of Service November 25, 2024 - Glycemic Short BSG Results (Last 24 hours): 11/24/24 11/24/24 11/24/24 13:07 16:42 17:39 Glucose 831 H* POC Glucose 597 H* 516 H* 11/24/24 11/24/24 11/24/24 18:09 18:53 19:11 Glucose 502 H* POC Glucose 504 H* 425 H* 11/24/24 11/24/24 11/24/24 20:21 21:14 22:25 Glucose POC Glucose 275 H 218 H 156 H 11/24/24 11/24/24 11/25/24 22:37 23:26 00:16 Glucose 175 H POC Glucose 165 H 134 H 11/25/24 11/25/24 11/25/24 01:21 02:14 02:47 Glucose 140 H POC Glucose 121 H 134 H 11/25/24 11/25/24 11/25/24 03:25 04:19 05:21 Glucose POC Glucose 129 H 149 H 145 H 11/25/24 11/25/24 11/25/24 06:18 06:27 07:09 Glucose 177 H POC Glucose 160 H 164 H 11/25/24 11/25/24 08:34 09:30 Glucose POC Glucose 199 H 221 H OUTPATIENT ANTIDIABETIC REGIMEN: * Ozempic 2mg SQ weekly * Novolog insulin pump with settings as below: * 1304-0124 1.9 units/hr CF: 20 CR: 3 * 2115-7561 1.2 units/hr CF: 20 CR: 3.5 * 9356-4756 1.7 units/hr CF: 30 CR: 4 * 0776-5549 1.8 units/hr CF: 30 CR: 4 * 4925-7145 1.7 units/hr CF: 30 CR: 4 * 6046-6172 2 units/hr CF: 30 CR: 4 * 7438-0376 1.7 units/hr CF: 30 CR: 4 * 1131-9828 1.8 units/hr CF: 30 CR: 4 HbA1c: 6.7% on 11/25/24 ASSESSMENT: * 69 year old female admitted 11/24 with flu like symptoms since Friday (nauseous, vomiting, diarrhea and body aches). Patient states that she is having trouble controlling her blood sugars because she is unable to keep even fluids down. Patient found to be in DKA on arrival. Initial BSG was 831mg/dL, AG 12, CO2 22, pH 1.14. Pharmacy was consulted for glycemic management while she is admitted. An insulin drip was initiated yesterday at 1534 at 7.5 units/hr. * BSGs dropped fairly quickly after initiation of the drip. The first check ~ 1 hr after start was 597mg/dL. The rate of the insulin drip was titrated up to 13unit/hr (around 1900) and then with the next check the BSG was 275mg/dL so the rate was steadily decreased through the evening. BSG at ~2100 was within the goal range of 150-250 and K+ was in the normal range so fluid was changed to d5 1/2NS + 20kcl/L at 125ml/hr. * BSGs continued to decrease throughout the evening. BSG this morning was 164mg/dL, AG 7, and CO2 23 so it was decided to transition the patient off of the drip. * Patient receives a total of ~40 units of basal insulin/24 hours from her insulin pump, so Lantus 40 units x 1 was ordered with instructions to nursing to continue the insulin drip. Fluids containing d5 were discontinued at that time. The insulin drip was continued until ~1200 when the BSG was 189mg/dL. Bolus insulin was initiated using ~ the parameters that her pump was set to at home. * A Lantus scale was ordered for HS x 1 tonight (patient will receive 0, 15, or 30 units depending on BSG). PLAN FOR INPATIENT GLYCEMIC CONTROL: * Hold outpatient diabetes medications * Basal insulin * Lantus 40 units SQ x 1 then Lantus scale for this evening x 1 ( hold for BSG < 140, 15 units for BSG 140-200, 30 units for BSG > 200) * Bolus insulin * NovoLog per scale ACHS or Q6hrs while NPO * Goal Range: Low 140 mg/dL - High 180 mg/dL * Correction Factor: 30 mg/dL/unit * Nutritional / Prandial insulin per carb ratio of 1 unit per 5 grams CHO consumed
[2024-11-25 11:31] LABS: BUN Creatinine Ratio 23.3 (10-20); Calcium 8.1 mg/dl (8.6-10.3); Creatinine Clr Calc Pharmacy 38.7 ml/min; Magnesium 1.8 mg/dl (1.7-2.4); Phosphorus 1.6 mg/dl (2.5-4.9); Potassium 4.2 mmol/L (3.5-5.1)
[2024-11-25] MEDS: DC IV INSULIN INFUSION 1 EA DEVI ONE (12:31)
[2024-11-25] MEDS: PROMETHAZINE 6.25 MG/50.25 ML BAG IV STA (12:37)
[2024-11-25] MEDS: EZETIMIBE 10 MG TAB PO SCH (13:04)
[2024-11-25] MEDS: GABAPENTIN 400 MG CAP PO SCH ×2 (13:04→20:13)
[2024-11-25] MEDS: DULoxetine HCL 20 MG CAP PO SCH (13:04)
[2024-11-25] MEDS: GABAPENTIN 100 MG CAP PO SCH (13:05)
[2024-11-25] MEDS: INSULIN ASPART PER UNIT CHARGE SC SCH ×2 (13:08→13:11)
--- NOTE | 2024-11-25 14:21 | Hospitalist Progress Note ---
Date of Service November 25, 2024 Assessment & Plan (1) DKA (diabetic ketoacidosis): (2) ZAC (acute kidney injury): (3) Nausea & vomiting: Plan: History of type 1 diabetes mellitus on insulin pump; presents with nausea, vomiting. Reports eating a [employer] buffet a day prior to onset of symptoms. Suspect gastroenteritis. pH on admission of 7.16 with bicarb of 12 Insulin pump tube kinked as per clinical document improvement educator which is likely precipitated into DKA. Anion gap closed with IV insulin, IV fluids Plan to start diet, subcu insulin Monitor for nausea and vomiting again, continue antiemetics Concern of new onset left bundle branch block- review of her outpatient EKG from November 2022 shows LBBB. Echo shows EF of 50 to 55%. (4) Hypertension: Plan: -given DKA hold home meds (5) Neuropathic pain: Plan: -continue home gabapentin and duloxetine Plan Full code DVT prophylaxis heparin Time spent evaluating patient, direct bedside care, chart review, placing orders, interpretation of diagnostic studies, discussion with consultants, patient, and family members, as well as other required patient management activities is 50 minutes Please note the above document was generated using voice recognition software. It may contain grammatical, syntax or spelling errors. Any formal questions or concerns about the content, text or information contained within the body of this dictation should be directly addressed to the provider for clarification Admission and Anticipated Discharge Date Admission Date: November 24, 2024 Subjective Patient seen and examined at bedside She reports that she is feeling better compared to yesterday She reports that she is hungry and wants to try some food. Review of Systems Review of Systems: All systems reviewed & are unremarkable except as noted in Subjective Physical Exam Physical Exam: Constitutional: WD/WN, vitals as above, NAD, sitting up in bed, pleasant, conversing easily Respiratory: normal respiratory effort, lungs clear to auscultation, no wheeze, rales, rhonchi. Normal insp/exp effort, no accessory muscle use Cardiovascular: RRR, no murmur, no edema Vessels: no JVD or carotid bruit Chest: normal inspection of chest Abdomen: normal bowel sounds, soft, nontender, no hepatosplenomegaly Musculoskeletal: no cyanosis or clubbing, extremities motor strength 5/5 Skin: no rashes, warm and dry normal turgor Neurologic: PERRL, EOMI, accommodation nl, no face palsy, no dysarthria CN's II- XI intact bilaterally and moves all extremities Psychiatric: A+Ox3, euthymic affect Results & Data Results & Data Vital Signs (Past 12 Hours) Vital Signs Temp Pulse Pulse Resp BP Pulse Ox O2 Del Method 11/25/24 11:42 74 11/25/24 11:27 36.8 C 80 18 134/74 99 Room Air 11/25/24 07:07 36.6 C 76 17 127/69 99 Room Air 11/25/24 03:38 36.9 C 87 16 125/66 97 Room Air (1) DKA (diabetic ketoacidosis) Diabetes mellitus complication detail: without coma Diabetes mellitus type: type 1 Qualified Code(s): E10.10 - Type 1 diabetes mellitus with ketoacidosis without coma (3) Nausea & vomiting Vomiting type: unspecified Qualified Code(s): R11.2 - Nausea with vomiting, unspecified (4) Hypertension Hypertension type: primary hypertension Qualified Code(s): I10 - Essential (primary) hypertension
[2024-11-25] MEDS ORDERED: LANTUS PER UNIT CHARGE SC SCH (21:00)
[2024-11-26] MEDS ORDERED: INSULIN ASPART 100 UNITS/ML VIAL SC PRN (08:00)
[2024-11-26 08:01] VITALS: BP 146/83; PULSE 73; RESP 18; TEMP 97.5; O2SAT 98
[2024-11-26] MEDS: INSULIN, Rapid-Acting PUMP SCH (08:45)
[2024-11-26 08:46] LABS: BUN Creatinine Ratio 20.2 (10-20); Calcium 8.4 mg/dl (8.6-10.3); Creatinine Clr Calc Pharmacy 48.1 ml/min; Potassium 3.1 mmol/L (3.5-5.1)
[2024-11-26] MEDS: POTASSIUM PHOSPHATE 15 MMOL in SODIUM CHLORIDE 0.9% 250 ML IV ONE (10:42)
[2024-11-26] MEDS: PANTOprazole 40 MG TAB PO SCH (10:42)
[2024-11-26] MEDS: POTASSIUM PHOS 3 MMOL/1 ML INFUSION IV STA (11:05)
[2024-11-26] MEDS: Continuous Glucose Monitor SCH (13:00)
[2024-11-26] MEDS: POTASSIUM CHLORIDE CRTAB 20 MEQ TABCR PO STA (13:03)
== END 2024-11-26 14:27 | disposition home or self-care (01) | DRG 638 ==
LOC: ED 12:29 → 2S 17:01 → SUATTDRO 17:01 → 2S 18:00
DX: E10.10 Type 1 diabetes mellitus with ketoacidosis without coma; K52.9 Noninfective gastroenteritis and colitis, unspecified; N17.9 Acute kidney failure, unspecified; Z11.52 Encounter for screening for COVID-19; Z96.41 Presence of insulin pump (external) (internal); I10 Essential (primary) hypertension; E10.40 Type 1 diabetes mellitus with diabetic neuropathy, unspecified; Z79.899 Other long term (current) drug therapy